=== PATIENT | female | born 1930 | race Caucasian/White ===

== ENCOUNTER → 2017-01-04 | Outpatient (CLI) | payer MEDICARE, BC ==
[2017-01-04 15:46] LABS: ABSOLUTE BASOPHILS # (AUTO) 0.1 10^3/uL (0.0-0.2); ABSOLUTE EOSINOPHILS # (AUTO) 0.2 10^3/uL (0.0-0.6); ABSOLUTE LYMPHOCYTES (AUTO) 1.2 10^3/uL (0.5-4.7); ABSOLUTE MONOCYTES (AUTO) 0.5 10^3/uL (0.1-1.4); BASOPHILS % (AUTO) 1.7 % (0-2); EOSINOPHILS % (AUTO) 4.6 % (0-6); HEMATOCRIT 30.5 % (36.0-47.0); HEMOGLOBIN 10.2 g/dL (12.0-15.5); HGB HCT DIFFERENCE 0.1; LYMPHOCYTES % (AUTO) 23.2 % (13-45); MEAN CORPUSCULAR HEMOGLOBIN 26.7 pg (27.0-33.4); MEAN CORPUSCULAR HGB CONC 33.3 g/dL (32.0-36.0); MEAN CORPUSCULAR VOLUME 80 fl (80-97); MONOCYTES % (AUTO) 10.5 % (3-13); RED BLOOD COUNT 3.81 10^6/uL (3.72-5.28); RED CELL DISTRIBUTION WIDTH 39.9 % (11.5-14.0)
[2017-01-04 16:04] LABS: ALANINE AMINOTRANSFERASE 18 U/L (9-52); ALBUMIN 4.2 g/dL (3.5-5.0); ALKALINE PHOSPHATASE 55 U/L (38-126); ANION GAP 11 (5-19); ASPARTATE AMINO TRANSFERASE 15 U/L (14-36); BILIRUBIN,DIRECT 0.3 mg/dL (0.0-0.4); BLOOD UREA NITROGEN 21 mg/dL (7-20); CALCIUM 8.8 mg/dL (8.4-10.2); CARBON DIOXIDE 30 mmol/L (22-30); CHLORIDE 96 mmol/L (98-107); CREATININE RESULT 0.72 mg/dL (0.52-1.25); GLUCOSE 91 mg/dL (75-110); MAGNESIUM 1.6 mg/dL (1.6-2.3); SODIUM 136.6 mmol/L (137-145); TOTAL PROTEIN 6.3 g/dL (6.3-8.2)
[2017-01-04 16:09] LABS: HYPOCHROMASIA SLIGHT; MICROCYTOSIS SLIGHT
[2017-01-04 16:10] LABS: ANISOCYTOSIS 4+; BURR CELLS SLIGHT; OVALOCYTES SLIGHT; POIKILOCYTOSIS 1+; SCHISTOCYTES SLIGHT
[2017-01-04 16:11] LABS: POLYCHROMASIA SLIGHT
[2017-01-04 16:12] LABS: TARGET CELLS SLIGHT
[2017-01-04 16:25] LABS: FREE T3 3.46 pg/mL (2.77-5.27)
== END ==
LOC: OD 15:00
PROVIDERS: ATTEND Internal Medicine
DX: I48.0 Paroxysmal atrial fibrillation (principal); E03.9 Hypothyroidism, unspecified; R53.82 Chronic fatigue, unspecified
CPT/HCPCS: 36415; 80053; 83735; 84436; 84439; 84481; 85025

== ENCOUNTER → 2017-01-09 | Outpatient (CLI) | payer MEDICARE, BC ==
--- NOTE | 2017-01-09 17:26 | XCELERA REPORT ---
[address] [address] Transthoracic Echocardiogram Report Name: MIGUEL CHEATHAM Age: 86 yrs Gender: Female : 1930 Patient Status: Outpatient Patient Location: Study Date: 01/09/2017 11:07 AM Height: 64 in Weight: 155 lb BSA: 1.8 m2 Procedure: A complete two-dimensional transthoracic echocardiogram was performed (2D, M-mode, spectral and color flow Doppler). The study was technically difficult with many images being suboptimal in quality. Reason For Study: AFIB Ordering Physician: NORRIS NEAL Performed By: Chasidy Mckenna Interpretation Summary The study was technically difficult with many images being suboptimal in quality. The left ventricular ejection fraction is normal. There is mild concentric left ventricular hypertrophy. Doppler measurements suggest pseudonormalized left ventricular relaxation, which is associated with grade II/IV or mild to moderate diastolic dysfunction The left ventricle is grossly normal size. Wall motion cannot be accurately commented on, but no definite regional wall motion abnormalities noted. The right ventricle is mildly dilated. The right ventricular systolic function is normal. The left atrium is mildly dilated. The right atrium is mildly dilated. There is a mild amount of mitral regurgitation There is no mitral valve stenosis. No aortic regurgitation is present. There is no aortic valve stenosis There is a mild to moderate amount of tricuspid regurgitation Right ventricular systolic pressure is estimated to be elevated at 50- 60mmHg. There is moderate pulmonary hypertension by echo Minimal pericardial effusion. MMode/2D Measurements \T\ Calculations RVDd: 2.9 cm LVIDd: 3.8 cmFS: 31.2 % Ao root diam: 3.7 cm IVSd: 1.2 cm LVIDs: 2.6 cmEDV(Teich): 63.4 ml LVPWd: 1.1 cmESV(Teich): 25.6 ml Ao root area: 10.9 cm2 EF(Teich): 59.7 % LA dimension: 3.0 cm LVOT diam: 2.4 cm LVOT area: 4.6 cm2 Doppler Measurements \T\ Calculations MV E max jack: MV P1/2t max jack: Ao V2 max: LV V1 max P.3 cm/sec 116.1 cm/sec 104.8 cm/sec 2.8 mmHg MV A max jack: MV P1/2t: 65.2 msec Ao max PG: LV V1 max: 101.0 cm/sec MVA(P1/2t): 3.4 cm2 4.4 mmHg 83.3 cm/sec MV E/A: 1.1 MV dec slope: ELLY(V,D): 3.7 cm2 521.5 cm/sec2 PA V2 max: TR max jack: 62.5 cm/sec 370.6 cm/sec PA max P.6 mmHgTR max P.9 mmHg Left Ventricle The left ventricle is grossly normal size. There is mild concentric left ventricular hypertrophy. The left ventricular ejection fraction is normal. Doppler measurements suggest pseudonormalized left ventricular relaxation, which is associated with grade II/IV or mild to moderate diastolic dysfunction. Wall motion cannot be accurately commented on, but no definite regional wall motion abnormalities noted. Right Ventricle The right ventricle is mildly dilated. There is normal right ventricular wall thickness. The right ventricular systolic function is normal. Atria The right atrium is mildly dilated. The left atrium is mildly dilated. Interarterial septum not well visualized and not well dopplered. Cannot comment on ASD/PFO presence. Mitral Valve There is mild mitral leaflet calcification. There is no mitral valve stenosis. There is a mild amount of mitral regurgitation. Aortic Valve The aortic valve is not well visualized secondary to technical limitations. There is no aortic valve stenosis. No aortic regurgitation is present. Tricuspid Valve The tricuspid valve is not well visualized, but is grossly normal. There is no tricuspid stenosis. There is a mild to moderate amount of tricuspid regurgitation. Right ventricular systolic pressure is estimated to be elevated at 50-60mmHg. There is moderate pulmonary hypertension by echo. Pulmonic Valve The pulmonic valve is not well visualized. Great Vessels The aortic root is not well visualized. The inferior vena cava appeared normal and decreased > 50% with respiration (RAP 5-10 mmHg). Effusions Minimal pericardial effusion. : NORRIS NEAL Shyamal
== END ==
LOC: SP 10:50
PROVIDERS: ATTEND Internal Medicine
DX: I48.0 Paroxysmal atrial fibrillation (principal)
CPT/HCPCS: 93306

== ENCOUNTER → 2017-10-18 | Outpatient (CLI) | payer MEDICARE, BC ==
[2017-10-18 16:36] LABS: HEMATOCRIT 27.7 % (36.0-47.0); HEMOGLOBIN 8.9 g/dL (12.0-15.5); MEAN CORPUSCULAR HEMOGLOBIN 21.7 pg (27.0-33.4); MEAN CORPUSCULAR HGB CONC 32.1 g/dL (32.0-36.0); MEAN CORPUSCULAR VOLUME 68 fl (80-97); PLATELET COUNT 277 10^3/uL (150-450); RED BLOOD COUNT 4.11 10^6/uL (3.72-5.28); RED CELL DISTRIBUTION WIDTH 31.6 % (11.5-14.0); WHITE BLOOD COUNT 5.2 10^3/uL (4.0-10.5)
[2017-10-18 16:47] LABS: ALANINE AMINOTRANSFERASE 27 U/L (9-52); ALKALINE PHOSPHATASE 52 U/L (38-126); ANION GAP 12 (5-19); ASPARTATE AMINO TRANSFERASE 21 U/L (14-36); BILIRUBIN,DIRECT 0.2 mg/dL (0.0-0.4); BILIRUBIN,TOTAL 0.7 mg/dL (0.2-1.3); BLOOD UREA NITROGEN 40 mg/dL (7-20); CALCIUM 8.8 mg/dL (8.4-10.2); CARBON DIOXIDE 30 mmol/L (22-30); CHLORIDE 97 mmol/L (98-107); GLUCOSE 92 mg/dL (75-110); MAGNESIUM 1.8 mg/dL (1.6-2.3); POTASSIUM 4.3 mmol/L (3.6-5.0); SODIUM 138.7 mmol/L (137-145)
[2017-10-18 16:57] LABS: ABSOLUTE LYMPHOCYTES# (MANUAL) 0.8 10^3/uL (0.5-4.7); ABSOLUTE MONOCYTES # (MANUAL) 0.5 10^3/uL (0.1-1.4); ABSOLUTE NEUTROPHILS# (MANUAL) 3.7 10^3/uL (1.7-8.2); BAND NEUTROPHILS % (MANUAL) 3 % (3-5); BASOPHILS % (MANUAL) 2 % (0-2); EOSINOPHILS % (MANUAL) 2 % (0-6); LYMPHOCYTES % (MANUAL) 15 % (13-45); MONOCYTES % (MANUAL) 9 % (3-13); SEGMENTED NEUTROPHILS % (MAN) 69 % (42-78); TOTAL CELLS COUNTED 100
[2017-10-18 16:58] LABS: PLATELET COMMENT ADEQUATE; PLATELET LARGE PRESENT
[2017-10-18 17:01] LABS: ANISOCYTOSIS 3+
[2017-10-18 17:02] LABS: OVALOCYTES 1+; TEAR DROP CELLS SLIGHT; TOXIC GRANULATION SLIGHT
[2017-10-18 17:03] LABS: POLYCHROMASIA SLIGHT
== END ==
LOC: OD 15:39
PROVIDERS: ATTEND Internal Medicine
DX: R53.83 Other fatigue (principal); E78.5 Hyperlipidemia, unspecified; I48.0 Paroxysmal atrial fibrillation; E16.2 Hypoglycemia, unspecified
CPT/HCPCS: 36415; 80053; 83735; 84443; 85025

== ENCOUNTER 2017-10-23 14:13 | Inpatient (IN) | payer MEDICARE, BC ==
[2017-10-23 15:37] LABS: VENOUS BLOOD HCO3 27.5 mmol/L (20-32); VENOUS BLOOD PCO2 53.3 mmHg (35-63); VENOUS BLOOD PH 7.33 (7.30-7.42)
[2017-10-23 15:39] LABS: ABSOLUTE BASOPHILS # (AUTO) 0.1 10^3/uL (0.0-0.2); ABSOLUTE EOSINOPHILS # (AUTO) 0.1 10^3/uL (0.0-0.6); ABSOLUTE LYMPHOCYTES (AUTO) 0.6 10^3/uL (0.5-4.7); ABSOLUTE MONOCYTES (AUTO) 0.6 10^3/uL (0.1-1.4); ABSOLUTE NEUT (AUTO) 4.4 10^3/uL (1.7-8.2); BASOPHILS % (AUTO) 1.2 % (0-2); HEMATOCRIT 28.5 % (36.0-47.0); HEMOGLOBIN 8.9 g/dL (12.0-15.5); LYMPHOCYTES % (AUTO) 10.8 % (13-45); MEAN CORPUSCULAR HEMOGLOBIN 21.3 pg (27.0-33.4); MEAN CORPUSCULAR HGB CONC 31.1 g/dL (32.0-36.0); MEAN CORPUSCULAR VOLUME 69 fl (80-97); MONOCYTES % (AUTO) 10.2 % (3-13); PLATELET COUNT 253 10^3/uL (150-450); RED BLOOD COUNT 4.16 10^6/uL (3.72-5.28); RED CELL DISTRIBUTION WIDTH 32.5 % (11.5-14.0); SEGMENTED NEUTROPHILS % (AUTO) 75.8 % (42-78); TOTAL CELLS COUNTED % (AUTO) 100 %; WHITE BLOOD COUNT 5.8 10^3/uL (4.0-10.5)
[2017-10-23 15:41] LABS: INTERNATIONAL RATION (INR) 1.88; PROTHROMBIN TIME 22.7 SEC (11.4-15.4)
--- NOTE | 2017-10-23 15:53 | RADIOLOGY REPORT (SQ) ---
EXAM DESCRIPTION: CHEST SINGLE VIEW COMPLETED DATE/TIME: 10/23/2017 3:39 pm REASON FOR STUDY: bed 15 sepsis protocol COMPARISON: 06/23/2010 EXAM PARAMETERS: NUMBER OF VIEWS: One view. TECHNIQUE: Single frontal radiographic view of the chest acquired. RADIATION DOSE: NA LIMITATIONS: None. FINDINGS: LUNGS AND PLEURA: No active infiltrates. Retrocardiac density most likely represents hiat al hernia. Small granuloma lateral aspect the right lung base. MEDIASTINUM AND HILAR STRUCTURES: No masses. Contour normal. HEART AND VASCULAR STRUCTURES: Heart normal in size. Normal vasculature. BONES: No acute findings. HARDWARE: Spinal stimulator OTHER: No other significant finding. IMPRESSION: NO ACUTE RADIOGRAPHIC FINDING IN THE CHEST. TECHNICAL DOCUMENTATION: JOB ID: [id number] [employer]- All Rights Reserved
--- NOTE | 2017-10-23 15:57 | ER Document Report ---
ED Respiratory Problem - General Chief Complaint: Breathing Difficulty Stated Complaint: PULSE OX ISSUES SENT BY DR GARCIA Time Seen by Provider: 10/23/17 15:15 Notes: Patient was referred here from her primary care physician (Norris Neal MD) office for low oxygen level. She is here with her daughter a former business continuity planner for this [facility]. Daughter says that the patient has had low oxygen levels for a couple of days. On Sunday, she had a saturation of 80% and her blood pressure was only 88/60. She is on no home oxygen. She had oxygen saturations in the 80s yesterday, as well. They went to their primary care provider's office today in hopes of getting oxygen for her at home, but she was noted to have an O2 saturation of 79% at Norris Neal MD's office. She was put on oxygen at 2 L and referred here. Patient denies any chest pain. Has not been having any cough or chest congestion recently. No vomiting or diarrhea. No fevers. Patient has a history of atrial fibrillation diagnosed about 6 months ago. She is on Eliquis. Patient has chronic pain of various parts of her body. However, her general medical condition is so poor that she cannot have palliative surgery such as knee replacements, etc. TRAVEL OUTSIDE OF THE [place] IN LAST 30 DAYS: No - Related Data Allergies/Adverse Reactions: No Known Allergies Allergy (Verified 10/23/17 14:14) Past Medical History - Social History Smoking Status: Unknown if Ever Smoked Cigarette use (# per day): No Family History: Reviewed & Not Pertinent Pulmonary Medical History: Denies: Hx Asthma, Hx COPD Musculoskeltal Medical History: Reports Hx Arthritis - Immunizations Hx Diphtheria, Pertussis, Tetanus Vaccination: No Review of Systems - Review of Systems Notes: REVIEW OF SYSTEMS: CONSTITUTIONAL : Denies fever. EENT: Denies eye, ear, nose or mouth or throat pain or other symptoms. CARDIOVASCULAR: Denies chest pain. RESPIRATORY: Denies cough, chest congestion, but does have chronic shortness of breath and difficulty breathing. GASTROINTESTINAL: Denies abdominal pain or nausea, vomiting, or diarrhea. GENITOURINARY: Denies difficulty or painful urinating, urinary frequency, blood in urine. MUSCULOSKELETAL: Denies back or neck pain. Denies joint pain or swelling. SKIN: Denies rash or skin lesions. Swelling of both lower extremities with chronic oozing of lymphatic fluid from both sides. No evidence of erythema or cellulitis. Negative Homans bilaterally. NEUROLOGICAL: Denies LOC or altered mental status. Denies headache. Denies sensory loss or motor deficits. ALL OTHER SYSTEMS REVIEWED AND NEGATIVE. Physical Exam - Vital signs Vitals: Temp Pulse Resp BP Pulse Ox 98.5 F 102 H 20 99/48 L 72 L 10/23/17 14:20 10/23/17 14:20 10/23/17 14:20 10/23/17 14:20 10/23/17 14:20 Interpretation: Hypotensive - Mild - Notes Notes: PHYSICAL EXAMINATION: GENERAL: Well-appearing, in no acute distress. On 4 L oxygen. HEAD: Atraumatic, normocephalic. EYES: Pupils equal round and reactive to light, extraocular movements intact. ENT: oropharynx clear without exudates. Moist mucous membranes. NECK: Normal range of motion, supple. LUNGS: Breath sounds with fine bibasilar rales, but equal bilaterally. HEART: Irregular rate and rhythm without murmurs. ABDOMEN: Soft, nontender. No guarding or rebound. No masses. BACK: No tenderness throughout entire back. EXTREMITIES: Normal range of motion without pain. Chronic lymphedema of both lower extremities with oozing of clear lymphatic fluid. No erythema or evidence of cellulitis or infection. Negative Homans bilaterally. NEUROLOGICAL: Normal speech, gait not tested. Normal sensory, motor, and reflex exams. Awake, alert, and oriented x3. PSYCH: Normal mood, normal affect. SKIN: Warm, dry, no rashes. Course - Re-evaluation Re-evalutation: 10/23/17 19:24 Attempted to take patient off of oxygen, but her O2 sat almost immediately drops to the upper 80%. We obtained a CTA which did not show any evidence of pulmonary emboli. Basically, we have unexplained hypoxia. I spoke with the patient's primary care provider Norris Neal MD. I also spoke to the hospitalist who will admit the patient for further workup and care. - Vital Signs Vital signs: Temp Pulse Resp BP Pulse Ox 98.5 F 102 H 20 99/48 L 72 L 10/23/17 14:20 10/23/17 14:20 10/23/17 14:20 10/23/17 14:20 10/23/17 14:20 - Laboratory Result Diagrams: 10/23/17 15:07 10/23/17 15:07 Laboratory results interpreted by me: 10/23/17 10/23/17 10/23/17 15:07 15:07 15:07 Hgb 8.9 L Hct 28.5 L MCV 69 L MCH 21.3 L MCHC 31.1 L RDW 32.5 H Lymphocytes % 10.8 L PT 22.7 H Chloride 97 L BUN 44 H Creatinine 1.29 H Est GFR ( Amer) 47 L Est GFR (Non-Af Amer) 39 L Direct Bilirubin 0.5 H AST 53 H ALT 64 H NT-Pro-B Natriuret Pep 10/23/17 15:07 Hgb Hct MCV MCH MCHC RDW Lymphocytes % PT Chloride BUN Creatinine Est GFR ( Amer) Est GFR (Non-Af Amer) Direct Bilirubin AST ALT NT-Pro-B Natriuret Pep 60914 H - Diagnostic Test Radiology results interpreted by me: 10/23/17 19:26 Chest x-ray shows no acute abnormality. No evidence of heart failure. No infiltrates. - EKG Interpretation by Me Rate: Normal Rhythm: A.Fib, A.Flutter [place]/QRS: RBBB Discharge - Discharge Clinical Impression: Hypoxia, Atrial fibrillation, Dyspnea Condition: Fair Disposition: ADMITTED INPATIENT Admitting Provider: Hospitalist Unit Admitted: Telemetry Referrals: NORRIS NEAL MD [Primary Care Provider] - Follow up as needed
[2017-10-23 15:59] LABS: ALANINE AMINOTRANSFERASE 64 U/L (9-52); ALBUMIN 4.2 g/dL (3.5-5.0); ALKALINE PHOSPHATASE 60 U/L (38-126); ANION GAP 11 (5-19); ASPARTATE AMINO TRANSFERASE 53 U/L (14-36); BILIRUBIN,DIRECT 0.5 mg/dL (0.0-0.4); BILIRUBIN,TOTAL 0.9 mg/dL (0.2-1.3); BLOOD UREA NITROGEN 44 mg/dL (7-20); CALCIUM 9.2 mg/dL (8.4-10.2); CARBON DIOXIDE 29 mmol/L (22-30); CHLORIDE 97 mmol/L (98-107); GLUCOSE 97 mg/dL (75-110); POTASSIUM 4.2 mmol/L (3.6-5.0); SODIUM 137.4 mmol/L (137-145); TOTAL PROTEIN 6.5 g/dL (6.3-8.2)
[2017-10-23 16:06] LABS: TOXIC GRANULATION SLIGHT
[2017-10-23 16:07] LABS: ANISOCYTOSIS 3+; HYPOCHROMASIA 1+; OVALOCYTES SLIGHT; POIKILOCYTOSIS 2+
[2017-10-23 16:09] LABS: PLATELET COMMENT ADEQUATE; SCHISTOCYTES SLIGHT
[2017-10-23 16:33] LABS: APPEARANCE,URINE CLEAR; BILIRUBIN,URINE NEGATIVE (NEGATIVE); COLOR,URINE YELLOW; GLUCOSE, URINE NEGATIVE (NEGATIVE); KETONES,URINE NEGATIVE (NEGATIVE); LEUKOCYTE ESTERASE,URINE NEGATIVE (NEGATIVE); NITRITE,URINE NEGATIVE (NEGATIVE); PROTEIN,URINE NEGATIVE (NEGATIVE); URINE SPECIFIC GRAVITY 1.008; UROBILINOGEN,URINE NEGATIVE mg/dL (<2.0)
[2017-10-23 17:28] LABS: A TYPE INFLUENZA AG NEGATIVE (NEGATIVE); B INFLUENZA AG NEGATIVE (NEGATIVE)
[2017-10-23] MEDS ORDERED: ONDANSETRON HCL INJ/PF 4 MG/2 ML SDV IV ONE (18:31)
--- NOTE | 2017-10-23 18:35 | RADIOLOGY REPORT (SQ) ---
EXAM DESCRIPTION: CTA CHEST COMPLETED DATE/TIME: 10/23/2017 6:22 pm REASON FOR STUDY: Hypoxia and shortness of breath. COMPARISON: None. TECHNIQUE: CT scan of the chest performed using helical scanning technique with dynamic intravenous contrast injection. Images reviewed with lung, soft tissue and bone windows. Reconstructed coronal and sagittal MPR images reviewed. Additional 3 dimensional post-processing performed to develop Maximal Intensity Projection images (NV P). All images stored on PACS. All CT scanners at this facility use dose modulation, iterative reconstruction, and/or weight based d osing when appropriate to reduce radiation dose to as low as reasonably achievable (ALARA). [facility]: Dose Right [facility]: CareDose [facility]: Dose Right [facility]: Teradose 4D [facility]: Xcalar CONTRAST TYPE AND DOSE: contrast/concentration: Isovue 370.00 mg/ml; Total Contrast Delivered: 69.0 ml; Total Saline Delivered: 64.0 ml 69 Isovue 370- low osmolar. Contrast bolus optimized for the pulmonary arteries. Not diagnostic for the aorta. RENAL FUNCTION: Creatinine 1.29 RADIATION DOSE: CT Rad equipment meets quality standard of care and radiation dose reduction techniq ues were employed. CTDIvol: 14.5 - 26.4 mGy. DLP: 534 mGy-cm. . LIMITATIONS: None. FINDINGS: LUNGS AND PLEURA: Atelectasis or atelectatic infiltrate posteriorly at the right base. Sm all right pleural effusion. AORTA AND GREAT VESSELS: No aneurysm. Contrast bolus not optimized for the aorta. HEART: No pericardial effusion. No significant coronary artery calcifications. PULMONARY ARTERIES: No emboli visualized in the main pulmonary arteries or the segmental branches. HILAR AND MEDIASTINAL STRUCTURES: No identified masses or abnormal nodes. Large hiatal hernia HARDWARE: None in the chest. UPPER ABDOMEN: No significant findings. Limited exam. THYROID AND OTHER SOFT TISSUES: No masses. No adenopathy. BONES: No acute or significant finding. 3D MIPS: Confirm above findings. OTHER: No other significant finding. IMPRESSION: No pulmonary emboli. Atelectasis or atelectatic infiltrate right lower lung zone. Smal l right pleural effusion. Large hiatal hernia. COMMENT: Quality ID # [id number]: Final reports with documentation of one or more dose reduction techniques (e.g., Automated exposure control, adjustment of the mA and/or kV according to patient size, use of iterative reconstruction technique) TECHNICAL DOCUMENTATION: JOB ID: [id number] 2 [employer]- All Rights Reserved
[2017-10-23] MEDS ORDERED: ENOXAPARIN SODIUM INJ 30 MG/0.3 ML DISP.SYRIN SUBCUT ONE (20:15)
[2017-10-23] MEDS: LEVALBUTEROL HCL NEB 1.25 MG/3 ML AMPUL NEB SCH (20:23)
[2017-10-23] MEDS ORDERED: FUROSEMIDE 20 MG TABLET PO ONE (21:45)
[2017-10-23] MEDS ORDERED: CEFTRIAXONE SODIUM 1,000 MG in NORMAL SALINE 50 ML IV SCH (22:00)
[2017-10-23] MEDS: CEFTRIAXONE SODIUM 1,000 MG in NORMAL SALINE 50 ML IV SCH (22:15)
--- NOTE | 2017-10-23 22:47 | EKG REPORT ---
SEVERITY:- ABNORMAL ECG - ATRIAL FIBRILLATION INCOMPLETE RIGHT BUNDLE BRANCH BLOCK NONSPECIFIC T ABNORMALITIES, LATERAL LEADS : Confirmed by: Erica Cadena 23-Oct-2017 22:46:11
[2017-10-24] MEDS ORDERED: OXYCODONE-ACETAMINOPHEN 5-325 MG TABLET PO PRN (00:16)
--- NOTE | 2017-10-24 00:31 | PDOC H&P ---
History of Present Illness Admission Date/PCP: 10/23/17 19:52 NORRIS NEAL, Patient complains of: Low oxygen level History of Present Illness: MIGUEL CHEATHAM is a 87 year old female with a history of scoliosis now wheelchair -bound, hypothyroidism, osteoporosis porosis, hyperlipidemia, GERD, timid to this, chronic atrial fibrillation on Eliquis who has been hockey puck sick over the last couple of days. Patient was hypoxic at home with oxygen saturations to 80s. Patient was evaluated in Dr. Neal's clinic on 10/23/2017 and was noted to be hypoxic there also. Patient was able to bring her saturations up to 90 with taking deep breaths. There is some concern that her nail vietnamese may have been interfering with the oxygenation. Patient was sent to the ED for further evaluation. Patient denies being short of breath. Patient would not give any further history and want her daughter to be present while history was obtained. Daughter's phone number is [phone] and her name is Milana. History was taken from documents sent with patient from the clinic visit. In the ED patient did not appear to be in any distress. She was satting 87-88% . On L patient was able to sat 99%. CTA of the chest was negative for PE but did demonstrate right lower lobe atelectatic infiltrate. Patient BNP was also elevated at 15,000. Hospitalist was called to admit patient for acute hypoxic respiratory failure. Past Medical History Cardiac Medical History: Reports: Atrial Fibrillation, Congestive Heart Failure - Diastolic grade 2 Pulmonary Medical History: Reports: Respiratory Failure Denies: Asthma, Chronic Obstructive Pulmonary Disease (COPD) Endocrine Medical History: Reports: Hypothyroidism GI History Note: GERD Musculoskeltal Medical History: Reports: Arthritis Musculoskeletal History Note: Scoliosis, osteoporosis Hematology: Denies: Anemia Past Surgical History Past Surgical History: Reports: Orthopedic Surgery, Tonsillectomy, Other - Spinal cord stimulator insertion, ladder suspension cataract surgery, Social History Smoking Status: Unknown if Ever Smoked Family History Family History: CAD, Malignancy Parental Family History Reviewed: No Children Family History Reviewed: No Sibling(s) Family History Reviewed.: No Medication/Allergy Allergies/Adverse Reactions: No Known Allergies Allergy (Verified 10/23/17 14:14) Review of Systems Constitutional: ABSENT: chills, fever(s), headache(s), weight gain, weight loss Eyes: ABSENT: visual disturbances Ears: ABSENT: hearing changes Cardiovascular: PRESENT: edema. ABSENT: chest pain, dyspnea on exertion, orthropnea, palpitations Respiratory: ABSENT: cough, hemoptysis Gastrointestinal: ABSENT: abdominal pain, constipation, diarrhea, hematemesis, hematochezia, nausea, vomiting Genitourinary: ABSENT: dysuria, hematuria Musculoskeletal: ABSENT: joint swelling Integumentary: ABSENT: rash, wounds Neurological: ABSENT: abnormal gait, abnormal speech, confusion, dizziness, focal weakness, syncope Psychiatric: ABSENT: anxiety, depression, homidical ideation, suicidal ideation Endocrine: ABSENT: cold intolerance, heat intolerance, polydipsia, polyuria Hematologic/Lymphatic: ABSENT: easy bleeding, easy bruising Physical Exam Vital Signs: Temp Pulse Resp BP Pulse Ox 98.5 F 96 14 106/67 100 10/23/17 14:20 10/23/17 20:29 10/23/17 20:51 10/23/17 20:51 10/23/17 20:51 General appearance: PRESENT: no acute distress, well-developed, well-nourished Head exam: PRESENT: atraumatic, normocephalic Eye exam: PRESENT: conjunctiva pink, EOMI, PERRLA. ABSENT: scleral icterus Ear exam: PRESENT: normal external ear exam Mouth exam: PRESENT: moist, tongue midline Neck exam: ABSENT: carotid bruit, JVD, lymphadenopathy, thyromegaly Respiratory exam: PRESENT: clear to auscultation rosana. ABSENT: rales, rhonchi, wheezes Cardiovascular exam: PRESENT: RRR. ABSENT: diastolic murmur, rubs, systolic murmur Pulses: PRESENT: normal dorsalis pedis pul Vascular exam: PRESENT: normal capillary refill GI/Abdominal exam: PRESENT: normal bowel sounds, soft. ABSENT: distended, guarding, mass, organolmegaly, rebound, tenderness Rectal exam: PRESENT: deferred Extremities exam: PRESENT: full ROM, +2 edema. ABSENT: calf tenderness, clubbing, pedal edema Musculoskeletal exam: PRESENT: other - Kyphoscoliosis Neurological exam: PRESENT: alert, awake, oriented to person, oriented to place , oriented to time, oriented to situation, other - hard of hearing. ABSENT: motor sensory deficit Psychiatric exam: PRESENT: appropriate affect, normal mood. ABSENT: homicidal ideation, suicidal ideation Skin exam: PRESENT: dry, intact, warm, other - Right leg wound with dressing in place. ABSENT: cyanosis, rash Results Laboratory Results: 10/23/17 10/23/17 10/23/17 15:07 15:07 15:07 WBC 5.8 RBC 4.16 Hgb 8.9 L Hct 28.5 L MCV 69 L MCH 21.3 L MCHC 31.1 L RDW 32.5 H Plt Count 253 Seg Neutrophils % 75.8 Lymphocytes % 10.8 L Monocytes % 10.2 Eosinophils % 2.0 Basophils % 1.2 Absolute Neutrophils 4.4 Absolute Lymphocytes 0.6 Absolute Monocytes 0.6 Absolute Eosinophils 0.1 Absolute Basophils 0.1 Toxic Granulation SLIGHT Platelet Comment ADEQUATE Hypochromasia 1+ Poikilocytosis 2+ Anisocytosis 3+ Microcytosis 2+ Ovalocytes SLIGHT Schistocytes SLIGHT PT 22.7 H INR 1.88 VBG pH VBG pCO2 VBG HCO3 VBG Base Excess Sodium 137.4 Potassium 4.2 Chloride 97 L Carbon Dioxide 29 Anion Gap 11 BUN 44 H Creatinine 1.29 H Est GFR ( Amer) 47 L Est GFR (Non-Af Amer) 39 L Glucose 97 Lactic Acid Calcium 9.2 Total Bilirubin 0.9 Direct Bilirubin 0.5 H AST 53 H ALT 64 H Alkaline Phosphatase 60 NT-Pro-B Natriuret Pep Total Protein 6.5 Albumin 4.2 Urine Color Urine Appearance Urine pH Ur Specific [place] Urine Protein Urine Glucose (UA) Urine Ketones Urine Blood Urine Nitrite Urine Bilirubin Urine Urobilinogen Ur Leukocyte Esterase Urine WBC (Auto) Urine RBC (Auto) U Hyaline Cast (Auto) Urine Bacteria (Auto) Squamous Epi Cells Auto Urine Mucus (Auto) Urine Ascorbic Acid Influenza A (Rapid) Influenza B (Rapid) 10/23/17 10/23/17 10/23/17 15:07 15:07 15:07 WBC RBC Hgb Hct MCV MCH MCHC RDW Plt Count Seg Neutrophils % Lymphocytes % Monocytes % Eosinophils % Basophils % Absolute Neutrophils Absolute Lymphocytes Absolute Monocytes Absolute Eosinophils Absolute Basophils Toxic Granulation Platelet Comment Hypochromasia Poikilocytosis Anisocytosis Microcytosis Ovalocytes Schistocytes PT INR VBG pH 7.33 VBG pCO2 53.3 VBG HCO3 27.5 VBG Base Excess 1.0 Sodium Potassium Chloride Carbon Dioxide Anion Gap BUN Creatinine Est GFR ( Amer) Est GFR (Non-Af Amer) Glucose Lactic Acid Calcium Total Bilirubin Direct Bilirubin AST ALT Alkaline Phosphatase NT-Pro-B Natriuret Pep 21442 H Total Protein Albumin Urine Color YELLOW Urine Appearance CLEAR Urine pH 5.0 Ur Specific [place] 1.008 Urine Protein NEGATIVE Urine Glucose (UA) NEGATIVE Urine Ketones NEGATIVE Urine Blood NEGATIVE Urine Nitrite NEGATIVE Urine Bilirubin NEGATIVE Urine Urobilinogen NEGATIVE Ur Leukocyte Esterase NEGATIVE Urine WBC (Auto) 1 Urine RBC (Auto) 0 U Hyaline Cast (Auto) 5 Urine Bacteria (Auto) 1+ Squamous Epi Cells Auto <1 Urine Mucus (Auto) RARE Urine Ascorbic Acid NEGATIVE Influenza A (Rapid) Influenza B (Rapid) 10/23/17 10/23/17 15:56 15:56 WBC RBC Hgb Hct MCV MCH MCHC RDW Plt Count Seg Neutrophils % Lymphocytes % Monocytes % Eosinophils % Basophils % Absolute Neutrophils Absolute Lymphocytes Absolute Monocytes Absolute Eosinophils Absolute Basophils Toxic Granulation Platelet Comment Hypochromasia Poikilocytosis Anisocytosis Microcytosis Ovalocytes Schistocytes PT INR VBG pH VBG pCO2 VBG HCO3 VBG Base Excess Sodium Potassium Chloride Carbon Dioxide Anion Gap BUN Creatinine Est GFR ( Amer) Est GFR (Non-Af Amer) Glucose Lactic Acid 0.9 Calcium Total Bilirubin Direct Bilirubin AST ALT Alkaline Phosphatase NT-Pro-B Natriuret Pep Total Protein Albumin Urine Color Urine Appearance Urine pH Ur Specific [place] Urine Protein Urine Glucose (UA) Urine Ketones Urine Blood Urine Nitrite Urine Bilirubin Urine Urobilinogen Ur Leukocyte Esterase Urine WBC (Auto) Urine RBC (Auto) U Hyaline Cast (Auto) Urine Bacteria (Auto) Squamous Epi Cells Auto Urine Mucus (Auto) Urine Ascorbic Acid Influenza A (Rapid) NEGATIVE Influenza B (Rapid) NEGATIVE Impressions: Chest X-Ray 10/23/17 14:28 IMPRESSION: NO ACUTE RADIOGRAPHIC FINDING IN THE CHEST. Chest/Abdomen CTA 10/23/17 16:38 IMPRESSION: No pulmonary emboli. Atelectasis or atelectatic infiltrate right lower lung zone. Small right pleural effusion. Large hiatal hernia. Assessment & Plan - Diagnosis (1) Acute respiratory failure with hypoxia Is this a current diagnosis for this admission?: Yes Plan: Acute hypoxic respiratory failure secondary to possible right lower lobe pneumonia and/or volume overload as patient BNP is 16,300. Patient currently on supplemental oxygen. Will wean as tolerated. Patient will need home O2 evaluation prior to discharge home. (2) Pneumonia Qualifiers: Laterality: right Lung location: lower lobe of lung Is this a current diagnosis for this admission?: Yes Plan: With the right-sided infiltrate seen on CT scan of the chest. Patient is not febrile nor does she has leukocytosis however he has been persistently hypoxic. Patient started on ceftriaxone and azithromycin for community-acquired pneumonia. Blood cultures have been drawn. (3) Acute renal failure Is this a current diagnosis for this admission?: Yes Plan: Patient with acute renal failure. Patient creatinine was 1.16 on 10/18/2017. Patient creatinine is now 1.29 on 10/23/2017. This could be secondary to acute congestive heart failure. Will gently diurese and follow up renal function. (4) Diastolic heart failure Qualifiers: Heart failure chronicity: acute on chronic Qualified Code(s): I50.33 - Acute on chronic diastolic (congestive) heart failure Is this a current diagnosis for this admission?: Yes Plan: She with acute on chronic diastolic heart failure. Patient has grade 2 diastolic heart failure. Patient with significant pedal edema. Patient BNP is 16,300. Patient normally takes Lasix 40mg daily at home however unsure how effective this has been. Will start patient on IV Lasix 20 mg every 8 hours and metolazone. Patient started on a lower dose of Lasix due to her low normal blood pressures. Will place patient on fluid restriction and monitor ins and outs. Patient is already on beta-antonia. Patient is not on lisinopril due to acute renal failure and uncertainty if patient blood pressure will tolerate. Order cardiac echo last echo was completed on 01/09/2017 which showed grade 2 diastolic dysfunction with systolic function. (5) Atrial fibrillation Qualifiers: Atrial fibrillation type: chronic Qualified Code(s): I48.2 - Chronic atrial fibrillation Is this a current diagnosis for this admission?: Yes Plan: Patient on metoprolol 12.5 mg p.o. twice daily and Eliquis 5 mg twice a day. (6) Transaminitis Is this a current diagnosis for this admission?: Yes Plan: Transaminitis most likely due to vascular congestion from exacerbation of CHF. With diuresis and follow-up LFTs. (7) Debility Is this a current diagnosis for this admission?: Yes Plan: She is wheelchair-bound at baseline. This is most likely due to her kyphoscoliosis (8) Hypotension Is this a current diagnosis for this admission?: Yes Plan: With low normal blood pressures. If patient is symptomatic or not as she is not ambulatory. Will start patient on Midodrine 5 mg 3 times daily while she is being diuresed as she is at risk for further hypotension. (9) Anemia Is this a current diagnosis for this admission?: Yes Plan: With microcytic anemia. Patient hemoglobin is 8.9 however stable. Patient MCV 69. Order iron studies and start patient on iron replacement. - Time Time Spent: 30 to 50 Minutes Anticipated discharge: Home with Homehealth - Inpatient Certification Medical Necessity: Need for IV Antibiotics
[2017-10-24] MEDS ORDERED: LEVOTHYROXINE SODIUM 0.05 MG TABLET PO ONE (00:45)
[2017-10-24] MEDS: LEVALBUTEROL HCL NEB 1.25 MG/3 ML AMPUL NEB SCH ×4 (01:57→20:03)
[2017-10-24 05:29] LABS: ALANINE AMINOTRANSFERASE 50 U/L (9-52); ALBUMIN 3.3 g/dL (3.5-5.0); ALKALINE PHOSPHATASE 50 U/L (38-126); ANION GAP 8 (5-19); ASPARTATE AMINO TRANSFERASE 35 U/L (14-36); BILIRUBIN,DIRECT 0.2 mg/dL (0.0-0.4); BILIRUBIN,TOTAL 0.7 mg/dL (0.2-1.3); BLOOD UREA NITROGEN 36 mg/dL (7-20); CALCIUM 8.5 mg/dL (8.4-10.2); CARBON DIOXIDE 30 mmol/L (22-30); CHLORIDE 98 mmol/L (98-107); GLUCOSE 87 mg/dL (75-110); IRON(TIBC) 37.1 ug/dL (37-170); POTASSIUM 3.7 mmol/L (3.6-5.0); SODIUM 136.4 mmol/L (137-145); TOTAL PROTEIN 5.1 g/dL (6.3-8.2)
[2017-10-24 06:02] LABS: ABSOLUTE BASOPHILS # (AUTO) 0.1 10^3/uL (0.0-0.2); ABSOLUTE EOSINOPHILS # (AUTO) 0.1 10^3/uL (0.0-0.6); ABSOLUTE LYMPHOCYTES (AUTO) 0.6 10^3/uL (0.5-4.7); ABSOLUTE MONOCYTES (AUTO) 0.6 10^3/uL (0.1-1.4); ABSOLUTE NEUT (AUTO) 4.1 10^3/uL (1.7-8.2); ABSOLUTE RETICS # 0.047 10^6/uL (0.028-0.122); BASOPHILS % (AUTO) 2.5 % (0-2); EOSINOPHILS % (AUTO) 2.3 % (0-6); HEMATOCRIT 23.4 % (36.0-47.0); MEAN CORPUSCULAR HEMOGLOBIN 21.6 pg (27.0-33.4); MEAN CORPUSCULAR HGB CONC 32.1 g/dL (32.0-36.0); MEAN CORPUSCULAR VOLUME 67 fl (80-97); MONOCYTES % (AUTO) 11.1 % (3-13); PLATELET COUNT 182 10^3/uL (150-450); RED BLOOD COUNT 3.47 10^6/uL (3.72-5.28); RED CELL DISTRIBUTION WIDTH 32.1 % (11.5-14.0); RETICULOCYTE COUNT (AUTO) 1.36 % (0.66-2.85); SEGMENTED NEUTROPHILS % (AUTO) 73.1 % (42-78); TOTAL CELLS COUNTED % (AUTO) 100 %; WHITE BLOOD COUNT 5.6 10^3/uL (4.0-10.5)
[2017-10-24 06:04] LABS: FERRITIN 9.24 ng/mL (11.1-264.0)
[2017-10-24 06:25] LABS: HEMOGLOBIN 7.5 g/dL (12.0-15.5)
[2017-10-24 06:33] LABS: HYPOCHROMASIA 3+
[2017-10-24 06:34] LABS: ANISOCYTOSIS 3+; BURR CELLS 1+; PLATELET COMMENT ADEQUATE; POIKILOCYTOSIS 2+; SCHISTOCYTES 1+
[2017-10-24 06:35] LABS: PLATELET LARGE PRESENT
[2017-10-24 06:36] LABS: FOLATE > 20.00 ng/mL (>2.76)
[2017-10-24 07:22] LABS: HEMATOCRIT 25.1 % (36.0-47.0); MEAN CORPUSCULAR HEMOGLOBIN 21.4 pg (27.0-33.4); MEAN CORPUSCULAR HGB CONC 31.2 g/dL (32.0-36.0); MEAN CORPUSCULAR VOLUME 69 fl (80-97); RED BLOOD COUNT 3.65 10^6/uL (3.72-5.28); RED CELL DISTRIBUTION WIDTH 31.7 % (11.5-14.0); WHITE BLOOD COUNT 5.8 10^3/uL (4.0-10.5)
[2017-10-24 08:01] LABS: HEMOGLOBIN 7.8 g/dL (12.0-15.5); PLATELET COUNT 192 10^3/uL (150-450)
[2017-10-24] MEDS ORDERED: BUMETANIDE 1 MG TABLET PO SCH (10:00)
[2017-10-24] MEDS ORDERED: ENOXAPARIN SODIUM INJ 30 MG/0.3 ML DISP.SYRIN SUBCUT SCH (10:00)
[2017-10-24] MEDS ORDERED: APIXABAN 2.5 MG TABLET PO SCH ×2 (10:00)
[2017-10-24] MEDS ORDERED: METOLAZONE 2.5 MG TABLET PO SCH (10:00)
[2017-10-24] MEDS ORDERED: CEFTRIAXONE 1 GM/D5W RTU 50 ML IV SCH (10:00)
[2017-10-24] MEDS ORDERED: FUROSEMIDE 20 MG TABLET PO SCH (10:00)
[2017-10-24] MEDS ORDERED: METOPROLOL TARTRATE 25 MG TABLET PO SCH ×2 (10:00→22:00)
[2017-10-24] MEDS ORDERED: ENOXAPARIN SODIUM INJ 40 MG/0.4 ML DISP.SYRIN SUBCUT SCH (10:00)
[2017-10-24] MEDS: FUROSEMIDE INJ/PF 20 MG/2 ML SDV IV SCH ×2 (11:25→22:49)
[2017-10-24] MEDS: FERROUS SULFATE 325 MG TABLET PO SCH (11:26)
[2017-10-24] MEDS: APIXABAN 5 MG TABLET PO SCH ×2 (11:26→22:49)
[2017-10-24] MEDS: POTASSIUM CHLORIDE 20 MEQ/15 ML UDCUP PO SCH (11:27)
[2017-10-24] MEDS: MIDODRINE HCL 5 MG TABLET PO SCH ×3 (11:27→18:00)
[2017-10-24] MEDS: AZITHROMYCIN 500 MG in DEXTROSE 5%-WATER 250 ML IV SCH (11:28)
--- NOTE | 2017-10-24 17:09 | PDOC PROGRESS REPORT ---
Subjective Progress Note for:: 10/24/17 Subjective:: Patient is not feeling well enough to talk very much therefore I am unable to complete full review of systems. However, she does tell me that she is breathing better. She is feeling very tired. No new chest pain. No abdominal pain nausea or vomiting. I have reviewed her labs, studies, and reports today. Reason For Visit: PNEUMONIA Physical Exam Vital Signs: Temp Pulse Resp BP Pulse Ox 97.4 F 83 18 95/54 L 90 L 10/24/17 13:00 10/24/17 14:27 10/24/17 14:27 10/24/17 13:00 10/24/17 14:27 Intake & Output 10/23/17 10/24/17 10/25/17 06:59 06:59 06:59 Weight 78.4 kg General appearance: PRESENT: mild distress, obese Head exam: PRESENT: atraumatic, normocephalic Eye exam: PRESENT: conjunctiva pink Mouth exam: PRESENT: dry mucosa Neck exam: ABSENT: lymphadenopathy Respiratory exam: PRESENT: decreased breath sounds, rales, unlabored. ABSENT: wheezes Cardiovascular exam: PRESENT: irregular rhythm. ABSENT: tachycardia GI/Abdominal exam: PRESENT: normal bowel sounds, soft. ABSENT: distended, tenderness Rectal exam: PRESENT: deferred Extremities exam: PRESENT: +2 edema Neurological exam: PRESENT: awake, oriented to person, oriented to situation Skin exam: PRESENT: dry, intact, warm Results Laboratory Results: 10/24/17 07:03 10/24/17 04:55 10/24/17 10/24/17 10/24/17 04:55 04:55 07:03 WBC 5.6 5.8 RBC 3.47 L 3.65 L Hgb 7.5 L 7.8 L Hct 23.4 L 25.1 L MCV 67 L 69 L MCH 21.6 L 21.4 L MCHC 32.1 31.2 L RDW 32.1 H 31.7 H Plt Count 182 192 Seg Neutrophils % 73.1 Lymphocytes % 11.0 L Monocytes % 11.1 Eosinophils % 2.3 Basophils % 2.5 H Absolute Neutrophils 4.1 Absolute Lymphocytes 0.6 Absolute Monocytes 0.6 Absolute Eosinophils 0.1 Absolute Basophils 0.1 Retic Count (auto) 1.36 Absolute Retic 0.047 Sodium 136.4 L Potassium 3.7 Chloride 98 Carbon Dioxide 30 Anion Gap 8 BUN 36 H Creatinine 1.12 Est GFR ( Amer) 56 L Est GFR (Non-Af Amer) 46 L Glucose 87 Calcium 8.5 Iron 37.1 TIBC 401 % Saturation 9 Ferritin 9.24 L Total Bilirubin 0.7 AST 35 ALT 50 Alkaline Phosphatase 50 Total Protein 5.1 L Albumin 3.3 L Vitamin B12 890.0 Folate > 20.00 Impressions: Chest X-Ray 10/23/17 14:28 IMPRESSION: NO ACUTE RADIOGRAPHIC FINDING IN THE CHEST. Chest/Abdomen CTA 10/23/17 16:38 IMPRESSION: No pulmonary emboli. Atelectasis or atelectatic infiltrate right lower lung zone. Small right pleural effusion. Large hiatal hernia. Assessment & Plan - Diagnosis (1) Acute renal failure Is this a current diagnosis for this admission?: Yes Plan: Renal functioning is improving with diuresis. Will continue Lasix 20 mg IV every 12 hours and watch renal function and electrolytes closely, along with blood pressure. (2) Acute respiratory failure with hypoxia Is this a current diagnosis for this admission?: Yes Plan: She seems to be having a heart failure exacerbation. She is responding well to oxygen, Lasix. Will continue current care and monitor her vitals and labs closely. (3) Anemia Is this a current diagnosis for this admission?: Yes Plan: She is on Eliquis for A. fib. Her hemoglobin has dropped a little bit and we will monitor closely, trending over the course of today. If she meets criteria we will transfuse. There is no sign of active bleeding. Fecal occult blood test is pending. (4) Atrial fibrillation Qualifiers: Atrial fibrillation type: chronic Qualified Code(s): I48.2 - Chronic atrial fibrillation Is this a current diagnosis for this admission?: Yes Plan: She is currently rate controlled with metoprolol, I have decreased her dose a little bit because she is hypotensive. She is on Eliquis for A. fib stroke prophylaxis. She continues on Eliquis despite hemoglobin dropping a little bit. Fecal occult blood test is pending. We may need to hold her Eliquis. If her hemoglobin continues to drop she may need GI consult. No evidence of active bleeding though. (5) Debility Is this a current diagnosis for this admission?: Yes Plan: She has scoliosis and chronic pain. SHe is wheelchair bound. She is on vicodin q 6 hrs with phenergan for nausea and she is on a fentanyl patch 25 mcg q 72 hrs. These have been ordered. We will watch her BP closely. (6) Diastolic heart failure Qualifiers: Heart failure chronicity: acute on chronic Qualified Code(s): I50.33 - Acute on chronic diastolic (congestive) heart failure Is this a current diagnosis for this admission?: Yes Plan: With an acute exacerbation for whchi she is receiving lasix. BNP very elevated. Will repeat after diresis. Also will check cardiac enzymes, ECHO ordered to eval failure. (7) Dyspnea Plan: Due to CHF flare, cont diuresis and O2. (8) Hypotension Is this a current diagnosis for this admission?: Yes Plan: stable, watch closely, pt needs her pain meds and diuresis, metoprolol cut in half. Not symptomatic at this time. (9) Pneumonia Qualifiers: Laterality: right Lung location: lower lobe of lung Is this a current diagnosis for this admission?: Yes Plan: cont ABX (10) Transaminitis Is this a current diagnosis for this admission?: Yes Plan: due to acute processes, treat underlying conditions and follow LFTs - Time Time Spent with patient: 25-34 minutes - Inpatient Certification Based on my medical assessment, after consideration of the patient's comorbidities, presenting symptoms, or acuity I expect that the services needed warrant INPATIENT care.: Yes I certify that my determination is in accordance with my understanding of Medicare's requirements for reasonable and necessary INPATIENT services [42 CFR 412.3e].: Yes Medical Necessity: Significant Comorbidiites Make Outpatient Treatment Too Risky , Need Close Monitoring Due to Risk of Patient Decompensation, Need for IV Antibiotics, Risk of Complication if Not Cared For in Hospital
[2017-10-24] MEDS: FENTANYL 25 MCG/HR PATCH.TD72 TD SCH (17:46)
[2017-10-24 18:38] LABS: CREATINE KINASE MB 1.01 ng/mL (<4.55)
[2017-10-24 18:42] LABS: TROPONIN I < 0.012 ng/mL
--- NOTE | 2017-10-24 19:19 | XCELERA REPORT ---
[address] [address] Transthoracic Echocardiogram Report Name: MIGUEL CHEATHAM Age: 87 yrs Gender: Female : 1930 Patient Status: Inpatient Patient Location: [address] [place], [place] [address] Study Date: 10/24/2017 03:44 PM Height: 64 in Weight: 159 lb BSA: 1.8 m2 Procedure: A complete two-dimensional transthoracic echocardiogram was performed (2D, M-mode, spectral and color flow Doppler). The study was technically difficult with many images being suboptimal in quality. Reason For Study: chf Ordering Physician: SANA FRAGOSO Performed By: Chasidy Mckenna Interpretation Summary The left ventricular ejection fraction is normal. There is mild concentric left ventricular hypertrophy. Doppler measurements suggest pseudonormalized left ventricular relaxation, which is associated with grade II/IV or mild to moderate diastolic dysfunction The left ventricle is grossly normal size. Wall motion cannot be accurately commented on, but no definite regional wall motion abnormalities noted. The right ventricle is moderately dilated. The right ventricular systolic function is mildly reduced. The left atrial size is normal. The right atrium is normal in size There is a mild amount of mitral regurgitation There is no mitral valve stenosis. No aortic regurgitation is present. There is no aortic valve stenosis There is a mild amount of tricuspid regurgitation There is a trace or physiologic amount of tricuspid regurgitation Tricuspid regurgitation jet envelope not well defined to measure RV systolic pressure accurately. The inferior vena cava appeared normal and decreased < 50% with respiration (RAP 10-15 mmHg) Minimal pericardial effusion. MMode/2D Measurements & Calculations RVDd: 4.1 cm LVIDd: 3.1 cm FS: 30.0 % Ao root diam: 3.6 cm IVSd: 1.2 cm LVIDs: 2.2 cm EDV(Teich): 38.9 ml LVPWd: 1.2 cm ESV(Teich): 16.1 ml Ao root area: 10.0 cm2 EF(Teich): 58.7 % LA dimension: 3.2 cm Doppler Measurements & Calculations MV E max jack: MV P1/2t max jack: Ao V2 max: LV V1 max P.7 cm/sec 136.2 cm/sec 138.5 cm/sec 3.4 mmHg MV A max jack: MV P1/2t: 54.9 msec Ao max PG: LV V1 max: 118.5 cm/sec 7.7 mmHg 92.2 cm/sec MV E/A: 1.1 MVA(P1/2t): 4.0 cm2 MV dec slope: 727.4 cm/sec2 PA V2 max: PI end-d jack: TR max jack: 61.7 cm/sec 106.0 cm/sec 214.5 cm/sec PA max P.5 mmHg TR max P.4 mmHg Left Ventricle The left ventricle is grossly normal size. There is mild concentric left ventricular hypertrophy. The left ventricular ejection fraction is normal. Doppler measurements suggest pseudonormalized left ventricular relaxation, which is associated with grade II/IV or mild to moderate diastolic dysfunction. Wall motion cannot be accurately commented on, but no definite regional wall motion abnormalities noted. Right Ventricle The right ventricle is moderately dilated. The right ventricle appears to be hypertrophied. The right ventricular systolic function is mildly reduced. Atria The right atrium is normal in size. The left atrial size is normal. Interarterial septum not well visualized and not well dopplered. Cannot comment on ASD/PFO presence. Mitral Valve The mitral valve is grossly normal. There is no mitral valve stenosis. There is a mild amount of mitral regurgitation. Aortic Valve The aortic valve is grossly normal. There is no aortic valve stenosis. No aortic regurgitation is present. Tricuspid Valve The tricuspid valve is not well visualized, but is grossly normal. There is no tricuspid stenosis. There is a mild amount of tricuspid regurgitation. There is a trace or physiologic amount of tricuspid regurgitation. Tricuspid regurgitation jet envelope not well defined to measure RV systolic pressure accurately. Pulmonic Valve The pulmonic valve is not well visualized. Great Vessels The aortic root is not well visualized but is probably normal size. The inferior vena cava appeared normal and decreased < 50% with respiration (RAP 10-15 mmHg). Effusions Minimal pericardial effusion. : SANA FRAGOSO > Erica Cadean
[2017-10-24] MEDS ORDERED: APIXABAN 5 MG TABLET PO SCH (22:00)
[2017-10-24] MEDS ORDERED: SIMVASTATIN 10 MG TABLET PO SCH (22:00)
[2017-10-24] MEDS ORDERED: ROPINIROLE HCL 1 MG TABLET PO SCH (22:00)
[2017-10-24] MEDS: CEFTRIAXONE SODIUM 1,000 MG in NORMAL SALINE 50 ML IV SCH (22:48)
[2017-10-24] MEDS: SIMVASTATIN 10 MG TABLET PO SCH (22:48)
[2017-10-24] MEDS: ROPINIROLE HCL 1 MG TABLET PO SCH (22:49)
[2017-10-24] MEDS: METOPROLOL TARTRATE 25 MG TABLET PO SCH (22:56)
[2017-10-24 23:52] LABS: CREATINE KINASE MB 0.74 ng/mL (<4.55)
[2017-10-24 23:53] LABS: TROPONIN I < 0.012 ng/mL
[2017-10-25] MEDS: HYDROCODONE/ACETAMINOPHEN 10-325 MG TABLET PO PRN ×2 (00:20→23:46)
[2017-10-25] MEDS: LEVALBUTEROL HCL NEB 1.25 MG/3 ML AMPUL NEB SCH ×4 (02:04→20:31)
[2017-10-25] MEDS: LEVOTHYROXINE SODIUM 0.05 MG TABLET PO SCH (05:40)
[2017-10-25] MEDS ORDERED: LEVOTHYROXINE SODIUM 0.05 MG TABLET PO SCH (06:00)
[2017-10-25 06:15] LABS: ALANINE AMINOTRANSFERASE 44 U/L (9-52); ALBUMIN 3.2 g/dL (3.5-5.0); ALKALINE PHOSPHATASE 48 U/L (38-126); ANION GAP 11 (5-19); ASPARTATE AMINO TRANSFERASE 26 U/L (14-36); BILIRUBIN,DIRECT 0.2 mg/dL (0.0-0.4); BILIRUBIN,TOTAL 0.4 mg/dL (0.2-1.3); BLOOD UREA NITROGEN 28 mg/dL (7-20); CALCIUM 8.2 mg/dL (8.4-10.2); CARBON DIOXIDE 30 mmol/L (22-30); CHLORIDE 97 mmol/L (98-107); GLUCOSE 111 mg/dL (75-110); POTASSIUM 3.4 mmol/L (3.6-5.0); SODIUM 137.8 mmol/L (137-145); TOTAL PROTEIN 4.9 g/dL (6.3-8.2)
[2017-10-25 06:20] LABS: CREATINE KINASE MB 0.85 ng/mL (<4.55)
[2017-10-25 06:25] LABS: HEMATOCRIT 22.9 % (36.0-47.0); MEAN CORPUSCULAR HEMOGLOBIN 21.4 pg (27.0-33.4); MEAN CORPUSCULAR HGB CONC 31.8 g/dL (32.0-36.0); MEAN CORPUSCULAR VOLUME 67 fl (80-97); PLATELET COUNT 159 10^3/uL (150-450); RED BLOOD COUNT 3.39 10^6/uL (3.72-5.28); RED CELL DISTRIBUTION WIDTH 32.9 % (11.5-14.0); WHITE BLOOD COUNT 4.7 10^3/uL (4.0-10.5)
[2017-10-25 06:26] LABS: CREATINE KINASE < 20 U/L (30-135)
[2017-10-25 06:27] LABS: TROPONIN I < 0.012 ng/mL
[2017-10-25 06:48] LABS: HEMOGLOBIN 7.3 g/dL (12.0-15.5)
[2017-10-25 06:53] LABS: ABSOLUTE LYMPHOCYTES# (MANUAL) 1.1 10^3/uL (0.5-4.7); ABSOLUTE MONOCYTES # (MANUAL) 0.2 10^3/uL (0.1-1.4); ABSOLUTE NEUTROPHILS# (MANUAL) 3.2 10^3/uL (1.7-8.2); BASOPHILS % (MANUAL) 0 % (0-2); EOSINOPHILS % (MANUAL) 3 % (0-6); LYMPHOCYTES % (MANUAL) 23 % (13-45); MONOCYTES % (MANUAL) 5 % (3-13); SEGMENTED NEUTROPHILS % (MAN) 69 % (42-78); TOTAL CELLS COUNTED 100
[2017-10-25 06:56] LABS: HYPOCHROMASIA 3+
[2017-10-25 06:57] LABS: BURR CELLS 1+; OVALOCYTES SLIGHT; PLATELET COMMENT ADEQUATE; POIKILOCYTOSIS 3+; SCHISTOCYTES 1+
[2017-10-25] MEDS ORDERED: POTASSIUM CHLORIDE 10 MEQ PO SCH (08:00)
[2017-10-25] MEDS ORDERED: POTASSIUM CHLORIDE 10 MEQ TABLET.SA PO SCH (08:00)
[2017-10-25 09:14] LABS: ANISOCYTOSIS 3+
[2017-10-25] MEDS: APIXABAN 5 MG TABLET PO SCH ×2 (10:53→20:52)
[2017-10-25] MEDS: FERROUS SULFATE 325 MG TABLET PO SCH (10:53)
[2017-10-25] MEDS: AZITHROMYCIN 500 MG in DEXTROSE 5%-WATER 250 ML IV SCH (10:55)
[2017-10-25] MEDS: MIDODRINE HCL 5 MG TABLET PO SCH ×3 (10:55→17:25)
[2017-10-25] MEDS ORDERED: METOPROLOL TARTRATE 25 MG TABLET PO ONE (11:00)
[2017-10-25] MEDS: METOPROLOL TARTRATE 25 MG TABLET PO SCH ×2 (11:10→20:52)
[2017-10-25] MEDS: FUROSEMIDE INJ/PF 20 MG/2 ML SDV IV SCH ×2 (11:38→20:53)
[2017-10-25] MEDS: POTASSIUM CHLORIDE 20 MEQ/15 ML UDCUP PO SCH (11:39)
[2017-10-25] MEDS: PROMETHAZINE HCL 25 MG TABLET PO PRN ×2 (12:01→23:49)
--- NOTE | 2017-10-25 13:24 | Physician Advisory Note ---
Physician Advisor ProgressNote .: Pursuant to the plan for [facility], I have reviewed the medical record for this patient. Physician Advisor Statement: Really nice documentation overall - Ac on Chr DIastolic type CHF, Chronic type Afib, Please consider documenting, if you agree: 1. "Pneumonia, suspect ____[gram-neg? gram-pos?] type, evidenced by " 2. R.e. KITA (ARF) dx: please document pt's baseline Cr [0.6's? 0.7?], to show how different her current Cr is from baseline & support dx of KITA. 3. R.e. Ac Resp Failure dx: please document any evidence of increased effort needed to breathe [labored breathing, accessory muscle use, tripoding, ...] that pt evidenced this visit, to support dx. 4. ?? - "Possible Anemia of acute blood loss, possibly due to " - or, if there is another specific cause of anemia suspected ... Thanks for your help! ROCHELLE
--- NOTE | 2017-10-25 18:57 | PDOC PROGRESS REPORT ---
Subjective Progress Note for:: 10/25/17 Subjective:: 87-year-old female who is wheelchair bound secondary to scoliosis. She has a history of hypothyroidism osteoporosis hyperlipidemia GERD chronic atrial fibrillation on Eliquis who presented with shortness of breath and was found to have hypoxia was diagnosed with right lower lobe pneumonia. Reason For Visit: PNEUMONIA Physical Exam Vital Signs: Temp Pulse Resp BP Pulse Ox 98.1 F 84 16 92/47 L 98 10/25/17 15:23 10/25/17 15:23 10/25/17 15:23 10/25/17 15:23 10/25/17 15:23 Intake & Output 10/24/17 10/25/17 10/26/17 06:59 06:59 06:59 Intake Total 873 486 Output Total 300 Balance 873 186 Weight 80.4 kg General appearance: PRESENT: no acute distress Eye exam: ABSENT: scleral icterus Ear exam: PRESENT: normal external ear exam Neck exam: ABSENT: tracheal deviation Respiratory exam: PRESENT: clear to auscultation rosana, unlabored Cardiovascular exam: PRESENT: RRR GI/Abdominal exam: PRESENT: normal bowel sounds, soft. ABSENT: tenderness Rectal exam: PRESENT: deferred Results Laboratory Results: 10/25/17 05:28 10/25/17 05:28 10/24/17 10/25/17 10/25/17 04:55 05:28 05:28 WBC 4.7 RBC 3.39 L Hgb 7.3 L Hct 22.9 L MCV 67 L MCH 21.4 L MCHC 31.8 L RDW 32.9 H Plt Count 159 Seg Neutrophils % Not Reportable Lymphocytes % Not Reportable Monocytes % Not Reportable Eosinophils % Not Reportable Basophils % Not Reportable Absolute Neutrophils Not Reportable Absolute Lymphocytes Not Reportable Absolute Monocytes Not Reportable Absolute Eosinophils Not Reportable Absolute Basophils Not Reportable Sodium 137.8 Potassium 3.4 L Chloride 97 L Carbon Dioxide 30 Anion Gap 11 BUN 28 H Creatinine 1.00 Est GFR ( Amer) > 60 Est GFR (Non-Af Amer) 52 L Glucose 111 H Calcium 8.2 L Transferrin 350 Total Bilirubin 0.4 AST 26 ALT 44 Alkaline Phosphatase 48 Total Protein 4.9 L Albumin 3.2 L 10/24/17 10/24/17 10/24/17 17:30 17:30 23:20 Creatine Kinase 22 L < 20 L CK-MB (CK-2) 1.01 Troponin I < 0.012 10/24/17 10/25/17 10/25/17 23:20 05:28 05:28 Creatine Kinase < 20 L CK-MB (CK-2) 0.74 0.85 Troponin I < 0.012 < 0.012 Impressions: Chest X-Ray 10/23/17 14:28 IMPRESSION: NO ACUTE RADIOGRAPHIC FINDING IN THE CHEST. Chest/Abdomen CTA 10/23/17 16:38 IMPRESSION: No pulmonary emboli. Atelectasis or atelectatic infiltrate right lower lung zone. Small right pleural effusion. Large hiatal hernia. Assessment & Plan - Diagnosis (1) Acute renal failure Is this a current diagnosis for this admission?: Yes (2) Acute respiratory failure with hypoxia Is this a current diagnosis for this admission?: Yes (3) Atrial fibrillation Qualifiers: Atrial fibrillation type: chronic Qualified Code(s): I48.2 - Chronic atrial fibrillation Is this a current diagnosis for this admission?: Yes (4) Pneumonia Qualifiers: Laterality: right Lung location: lower lobe of lung Is this a current diagnosis for this admission?: Yes (5) Diastolic heart failure Qualifiers: Heart failure chronicity: acute on chronic Qualified Code(s): I50.33 - Acute on chronic diastolic (congestive) heart failure Is this a current diagnosis for this admission?: Yes - Time Time Spent with patient: 35 or more minutes - Plan Summary Plan Summary: Continue antibiotics for pneumonia. Echocardiogram is pending Continue diuresis for diastolic CHF exacerbation. Monitor intake and output.
[2017-10-25] MEDS: CEFTRIAXONE SODIUM 1,000 MG in NORMAL SALINE 50 ML IV SCH (20:52)
[2017-10-25] MEDS: SIMVASTATIN 10 MG TABLET PO SCH (20:52)
[2017-10-25] MEDS: ROPINIROLE HCL 1 MG TABLET PO SCH (20:53)
[2017-10-26] MEDS: LEVALBUTEROL HCL NEB 1.25 MG/3 ML AMPUL NEB SCH ×2 (01:26→07:48)
[2017-10-26] MEDS: LEVOTHYROXINE SODIUM 0.05 MG TABLET PO SCH (05:53)
[2017-10-26] MEDS: HYDROCODONE/ACETAMINOPHEN 10-325 MG TABLET PO PRN ×2 (05:53→14:58)
[2017-10-26] MEDS: PROMETHAZINE HCL 25 MG TABLET PO PRN (05:53)
[2017-10-26 06:59] LABS: HEMATOCRIT 24.2 % (36.0-47.0); MEAN CORPUSCULAR HEMOGLOBIN 21.3 pg (27.0-33.4); MEAN CORPUSCULAR HGB CONC 31.3 g/dL (32.0-36.0); MEAN CORPUSCULAR VOLUME 68 fl (80-97); PLATELET COUNT 177 10^3/uL (150-450); RED BLOOD COUNT 3.55 10^6/uL (3.72-5.28); RED CELL DISTRIBUTION WIDTH 32.7 % (11.5-14.0); WHITE BLOOD COUNT 4.3 10^3/uL (4.0-10.5)
[2017-10-26 07:11] LABS: ANION GAP 9 (5-19); BLOOD UREA NITROGEN 22 mg/dL (7-20); CALCIUM 8.4 mg/dL (8.4-10.2); CARBON DIOXIDE 29 mmol/L (22-30); CHLORIDE 98 mmol/L (98-107); GLUCOSE 95 mg/dL (75-110); POTASSIUM 3.9 mmol/L (3.6-5.0); SODIUM 135.8 mmol/L (137-145)
[2017-10-26 07:36] LABS: HEMOGLOBIN 7.6 g/dL (12.0-15.5)
[2017-10-26 08:04] LABS: ABSOLUTE LYMPHOCYTES# (MANUAL) 1.2 10^3/uL (0.5-4.7); ABSOLUTE MONOCYTES # (MANUAL) 0.3 10^3/uL (0.1-1.4); ABSOLUTE NEUTROPHILS# (MANUAL) 2.7 10^3/uL (1.7-8.2); BAND NEUTROPHILS % (MANUAL) 1 % (3-5); BASOPHILS % (MANUAL) 1 % (0-2); EOSINOPHILS % (MANUAL) 1 % (0-6); LYMPHOCYTES % (MANUAL) 22 % (13-45); MONOCYTES % (MANUAL) 8 % (3-13); SEGMENTED NEUTROPHILS % (MAN) 62 % (42-78); TOTAL CELLS COUNTED 100
[2017-10-26 08:05] LABS: ANISOCYTOSIS 4+; BURR CELLS SLIGHT; OVALOCYTES 2+; PLATELET COMMENT ADEQUATE; PLATELET LARGE PRESENT; POIKILOCYTOSIS 2+; POLYCHROMASIA 1+; SCHISTOCYTES SLIGHT; TOXIC GRANULATION SLIGHT
[2017-10-26] MEDS ORDERED: METOPROLOL TARTRATE PF/INJ 5 MG/5 ML SDV IV ONE ×2 (09:49→10:30)
[2017-10-26] MEDS ORDERED: NORMAL SALINE 250 ML IV PRN ×3 (10:01→10:04)
[2017-10-26] MEDS ORDERED: FUROSEMIDE INJ/PF 20 MG/2 ML SDV IV PRN (10:01)
[2017-10-26] MEDS ORDERED: FUROSEMIDE INJ/PF 40 MG/4 ML SDV IV PRN (10:04)
[2017-10-26] MEDS ORDERED: DIPHENHYDRAMINE HCL 25 MG CAPSULE PO PRN (10:04)
[2017-10-26] MEDS ORDERED: ACETAMINOPHEN 325 MG TABLET PO PRN (10:04)
[2017-10-26] MEDS: MIDODRINE HCL 5 MG TABLET PO SCH ×3 (10:06→17:22)
[2017-10-26] MEDS: POTASSIUM CHLORIDE 20 MEQ/15 ML UDCUP PO SCH (10:07)
[2017-10-26] MEDS: AZITHROMYCIN 250 MG TABLET PO SCH (10:07)
--- NOTE | 2017-10-26 10:14 | PROGRESS NOTE E ---
Progress Note NAME: MIGUEL CHEATHAM : 1930 AGE: 87Y DATE: 10/26/2017 ROOM: 403 SUBJECTIVE: The patient is currently lying in bed. The patient was seen on rounds. The patient had got up to the bedside commode and the patient's heart rate had gone up to 180, which appeared to be all atrial fibrillation. The patient did admit to some shortness of breath but was not terribly symptomatic to this. The patient's nurse wound is Dr. Cadena. She says her primary is Dr. Mustafa. The patient denies any chest pain. No nausea, vomiting, diarrhea. The patient has been afebrile. Her blood pressures have been on the low end, but this is normal for her as she is chronically on midodrine. The patient does not voice any other concerns at this time. REVIEW OF SYSTEMS: The rest of the review of systems is negative. MEDICATIONS: Medications have been reviewed. OBJECTIVE: GENERAL: The patient is an 87-year-old female who is awake, alert, and oriented to person, place, time, and situation. She is verbal, conversational, does not appear to be in any acute distress. VITAL SIGNS: As follows: Temperature is 97.7, pulse 69, respirations 18, blood pressure is 108/41, oxygen saturation is 100% on 3 L nasal cannula. SKIN: Warm and dry. No rash, not diaphoretic. HEENT: Pupils equal, round, and reactive to light and accommodation. Conjunctiva is pink. No evidence of JVP. CARDIOVASCULAR: Heart is irregularly irregular. No rub. CHEST: Diminished, symmetrical, unlabored. ABDOMEN: Soft, nontender, nondistended. BACK: No CVA tenderness or sacral edema. EXTREMITIES: No clubbing, cyanosis. The patient's lower extremities have evidence of prior significant edema, do appear deflated. PSYCHIATRIC: Appropriate affect. Pleasant mood. DIAGNOSTICS: Lab values are as follows. Hematology obtained on 10/26/2017: WBCs are 4.3, hemoglobin is 7.6, hematocrit is 24.2, platelet count is 177,000. Chemistry obtained on 10/26/2017: Sodium is 135, potassium 3.9, chloride is 98, carbon dioxide is 29, BUN 22, creatinine is 0.83, glucose 95, calcium is 8.4. IMPRESSION AND PLAN: 1. LEFT LOWER LOBE PNEUMONIA. This appears to be community acquired. Will continue current antibiotic coverage as the patient has made significant improvement so far. 2. ACUTE HYPOXEMIC RESPIRATORY FAILURE. Will titrate the patient's O2 as well as decrease nebulizers. 3. ATRIAL FIBRILLATION WITH RAPID VENTRICULAR RESPONSE. Will give a dose of IV Lopressor. At this time it appears the patient did miss some doses of her beta antonia. Will continue to follow. The patient is currently anticoagulated with Eliquis. 4. ACUTE RENAL FAILURE. The patient's creatinine appears to be at baseline. 5. ACUTE ON CHRONIC DIASTOLIC CONGESTIVE HEART FAILURE. The patient appears to be optivolemic at this point. Will transition back to oral diuresis today and follow. 6. OPIATE DEPENDENCY, CONTINUOUS. Will continue the patient's home medications. 7. HYPOTHYROIDISM. Will continue levothyroxine. 8. ANEMIA. Uncertain of the exact etiology of this as the patient's hemoglobin back in December of 2016 was found to be 10; however, October 18 it was 8.9 and has drifted down to 7.6. The patient will obtain guaiac. Type and cross and transfuse 2 units of packed red blood cells and follow. DISPOSITION: THE PATIENT IS A DO NOT RESUSCITATE/DO NOT INTUBATE THE PATIENT EXPRESSED A DESIRE FOR NATURAL . Time spent on this followup, including assessment/plan, physical examination, patient education, review of records, is 35 minutes. DICTATING PHYSICIAN: NORRIS MANTILLA NP [id number] PHY#: [id number] ID: [id number] JOB#: [id number] ACCT: [id number] cc: >
[2017-10-26] MEDS ORDERED: POTASSIUM CHLORIDE 10 MEQ TABLET.SA PO ONE (11:00)
[2017-10-26] MEDS ORDERED: FERROUS SULFATE 325 MG TABLET PO SCH (12:00)
--- NOTE | 2017-10-26 14:32 | PDOC CONSULTATION ---
Consultation Consult Date: 10/26/17 Attending physician:: TORRI PARKS Consult reason:: Anemia History of Present Illness Admission Date/PCP: 10/23/17 19:52 NORRIS NEAL, Patient complains of: Shortness of breath, fatigue, hypoxia History of Present Illness: 79-year-old female with known history of mild anemia who presents with hemoglobin of 8.9, during this hospitalization is dropped to 7.3. In review of iron studies her ferritin was 9. She has had increasing shortness of breath, and her physician's office it was 88% on room air, and she has been more fatigued. She denies any black tarry stool or hematemesis. She does have known history of CHF, BNP was elevated on admission so heart failure has been treated to this point, but the hemoglobin is dropped to 7.3. Past Medical History Cardiac Medical History: Reports: Atrial Fibrillation, Congestive Heart Failure - Diastolic grade 2 Pulmonary Medical History: Reports: Respiratory Failure Denies: Asthma, Chronic Obstructive Pulmonary Disease (COPD) Endocrine Medical History: Reports: Hypothyroidism Musculoskeltal Medical History: Reports: Arthritis Hematology: Denies: Anemia Past Surgical History Past Surgical History: Reports: Orthopedic Surgery, Tonsillectomy, Other - Spinal cord stimulator insertion, ladder suspension cataract surgery, Social History Information Source: Patient Smoking Status: Former Smoker Number of Years Smokin Last Time Smoked: 1979 Frequency of Alcohol Use: None Hx Recreational Drug Use: No Drugs: None Hx Prescription Drug Abuse: No - Advance Directive Resuscitation Status: Do Not Resuscitate Family History Family History: CAD, Malignancy Parental Family History Reviewed: Yes Children Family History Reviewed: Yes Sibling(s) Family History Reviewed.: Yes Medication/Allergy Home Medications: Apixaban [Eliquis] 5 mg PO Q12 10/24/17 Ergocalciferol (Vitamin D2) [Drisdol 50,000 unit (1.25MG) Capsule] 50,000 unit PO LOPES@1000 10/24/17 Fentanyl [Duragesic 25 mcg/hr Transdermal Patch] 1 patch TOP Q3D 10/24/17 Furosemide [Lasix 40 mg Tablet] 40 mg PO DAILY 10/24/17 Hydrocodone Bit/Acetaminophen [Hydrocodon-Acetaminophn 10-325] 1 tab PO Q6HP PRN 10/24/17 Levothyroxine Sodium [Synthroid 0.05 mg Tablet] 0.05 mg PO Q6AM 10/24/17 Metoprolol Tartrate [Lopressor 50 mg Tablet] 50 mg PO Q8 10/24/17 Potassium Chloride [Klor-Con Sprinkle] 10 meq PO [id number] 10/24/17 Promethazine HCl [Phenergan 25 mg Tablet] 25 mg PO TIDHS 10/24/17 Ropinirole HCl [Requip] 1 mg PO QHS 10/24/17 Simvastatin [Zocor 20 mg Tablet] 20 mg PO QHS 10/24/17 Allergies/Adverse Reactions: No Known Allergies Allergy (Verified 10/23/17 14:14) Review of Systems Constitutional: PRESENT: fatigue, weakness Cardiovascular: PRESENT: dyspnea on exertion, orthropnea Gastrointestinal: PRESENT: constipation Neurological: ABSENT: abnormal gait, abnormal speech, confusion, dizziness, focal weakness, syncope Physical Exam Vital Signs: Temp Pulse Resp BP Pulse Ox 98.2 F 88 16 93/35 L 92 10/26/17 11:05 10/26/17 11:05 10/26/17 11:05 10/26/17 11:05 10/26/17 11:05 Intake & Output 10/25/17 10/26/17 10/27/17 06:59 06:59 06:59 Intake Total 873 853 Output Total 700 Balance 873 153 Weight 80.4 kg 80 kg General appearance: PRESENT: no acute distress, well-developed, well-nourished Head exam: PRESENT: atraumatic, normocephalic Eye exam: PRESENT: conjunctiva pink, EOMI, PERRLA. ABSENT: scleral icterus Ear exam: PRESENT: normal external ear exam Mouth exam: PRESENT: moist, tongue midline Neck exam: ABSENT: carotid bruit, JVD, lymphadenopathy, thyromegaly Respiratory exam: PRESENT: clear to auscultation rosana. ABSENT: rales, rhonchi, wheezes Cardiovascular exam: PRESENT: RRR. ABSENT: diastolic murmur, rubs, systolic murmur Pulses: PRESENT: normal dorsalis pedis pul Vascular exam: PRESENT: normal capillary refill GI/Abdominal exam: PRESENT: normal bowel sounds, soft. ABSENT: distended, guarding, mass, organolmegaly, rebound, tenderness Rectal exam: PRESENT: deferred Extremities exam: PRESENT: full ROM. ABSENT: calf tenderness, clubbing, pedal edema Neurological exam: PRESENT: alert, awake, oriented to person, oriented to place , oriented to time, oriented to situation, CN II-XII grossly intact. ABSENT: motor sensory deficit Psychiatric exam: PRESENT: appropriate affect, normal mood. ABSENT: homicidal ideation, suicidal ideation Skin exam: PRESENT: dry, intact, warm. ABSENT: cyanosis, rash Results Laboratory Results: 10/26/17 05:56 10/26/17 05:56 10/26/17 10/26/17 10/26/17 05:56 05:56 10:52 WBC 4.3 RBC 3.55 L Hgb 7.6 L Hct 24.2 L MCV 68 L MCH 21.3 L MCHC 31.3 L RDW 32.7 H Plt Count 177 Seg Neutrophils % Not Reportable Lymphocytes % Not Reportable Monocytes % Not Reportable Eosinophils % Not Reportable Basophils % Not Reportable Absolute Neutrophils Not Reportable Absolute Lymphocytes Not Reportable Absolute Monocytes Not Reportable Absolute Eosinophils Not Reportable Absolute Basophils Not Reportable Sodium 135.8 L Potassium 3.9 Chloride 98 Carbon Dioxide 29 Anion Gap 9 BUN 22 H Creatinine 0.83 Est GFR ( Amer) > 60 Est GFR (Non-Af Amer) > 60 Glucose 95 Calcium 8.4 Blood Type O POSITIVE Antibody Screen NEGATIVE 10/24/17 10/24/17 10/24/17 17:30 17:30 23:20 Creatine Kinase 22 L < 20 L CK-MB (CK-2) 1.01 Troponin I < 0.012 10/24/17 10/25/17 10/25/17 23:20 05:28 05:28 Creatine Kinase < 20 L CK-MB (CK-2) 0.74 0.85 Troponin I < 0.012 < 0.012 Impressions: Chest X-Ray 10/23/17 14:28 IMPRESSION: NO ACUTE RADIOGRAPHIC FINDING IN THE CHEST. Chest/Abdomen CTA 10/23/17 16:38 IMPRESSION: No pulmonary emboli. Atelectasis or atelectatic infiltrate right lower lung zone. Small right pleural effusion. Large hiatal hernia. Assessment & Plan - Diagnosis (1) Anemia Qualifiers: Anemia type: iron deficiency Iron deficiency anemia type: other iron deficiency Qualified Code(s): D50.8 - Other iron deficiency anemias Is this a current diagnosis for this admission?: Yes Plan: Hemoglobin 7.3, ferritin is 9, most likely cause would be blood loss anemia but patient has not had any symptomatology consistent with that. Last colonoscopy was about 5 years ago. At this point would not recommend colonoscopy given her age and comorbidities. Instead we will go ahead and give her 1 unit of blood as well as Feraheme 1 dose. That should bring her hemoglobin to the 9 and 10 range which should be at baseline for her. This should help her hypoxia as well as heart failure status. - Time Time Spent: 50 to 70 Minutes - Inpatient Certification Based on my medical assessment, after consideration of the patient's comorbidities, presenting symptoms, or acuity I expect that the services needed warrant INPATIENT care.: Yes I certify that my determination is in accordance with my understanding of Medicare's requirements for reasonable and necessary INPATIENT services [42 CFR 412.3e].: Yes Medical Necessity: Risk of Complication if Not Cared For in Hospital
[2017-10-26] MEDS: METOPROLOL TARTRATE 25 MG TABLET PO SCH (14:43)
[2017-10-26] MEDS: METOPROLOL TARTRATE 50 MG TABLET PO SCH ×2 (14:45→23:55)
[2017-10-26] MEDS ORDERED: DIPHENHYDRAMINE HCL 25 MG CAPSULE ONE (14:51)
[2017-10-26] MEDS: APIXABAN 5 MG TABLET PO SCH (17:26)
[2017-10-26] MEDS: SIMVASTATIN 10 MG TABLET PO SCH (23:56)
[2017-10-26] MEDS ORDERED: CEFTRIAXONE INJ 1000 MG VIAL ONE (23:56)
[2017-10-26] MEDS: ROPINIROLE HCL 1 MG TABLET PO SCH (23:56)
[2017-10-27] MEDS: METOPROLOL TARTRATE 25 MG TABLET PO SCH
[2017-10-27] MEDS: HYDROCODONE/ACETAMINOPHEN 10-325 MG TABLET PO PRN ×3 (00:15→18:03)
[2017-10-27] MEDS: PROMETHAZINE HCL 25 MG TABLET PO PRN ×3 (00:15→18:04)
[2017-10-27] MEDS: CEFTRIAXONE SODIUM 1,000 MG in NORMAL SALINE 50 ML IV SCH (00:53)
[2017-10-27] MEDS: METOPROLOL TARTRATE 50 MG TABLET PO SCH ×3 (06:45→22:10)
[2017-10-27] MEDS: LEVOTHYROXINE SODIUM 0.05 MG TABLET PO SCH (06:48)
[2017-10-27] MEDS: AZITHROMYCIN 250 MG TABLET PO SCH (09:28)
[2017-10-27] MEDS: MIDODRINE HCL 5 MG TABLET PO SCH ×3 (09:28→18:03)
[2017-10-27] MEDS ORDERED: POTASSIUM CHLORIDE 10 MEQ TABLET.SA PO ONE (10:00)
[2017-10-27] MEDS ORDERED: POTASSIUM CHLORIDE 10 MEQ TABLET.SA PO SCH (10:00)
--- NOTE | 2017-10-27 10:19 | EKG REPORT ---
SEVERITY:- ABNORMAL ECG - SINUS RHYTHM FIRST DEGREE AV BLOCK CONSIDER RVH W/ SECONDARY REPOL ABNORMALITY : Confirmed by: Erica Cadena 27-Oct-2017 10:19:23
--- NOTE | 2017-10-27 11:48 | PROGRESS NOTE E ---
Progress Note NAME: MIGUEL CHEATHAM : 1930 AGE: 87Y DATE: 10/27/2017 ROOM: 309 SUBJECTIVE: The patient is currently lying in bed. She states today she does feel better in comparison to yesterday. The patient denies any nausea, vomiting, or diarrhea. Still has shortness of breath but overall improved in comparison to yesterday. The patient's daughter is present at the bedside and active in the patient's care. The patient has had no reported episodes of vomiting nor diarrhea, and the patient does not voice any other concerns at this time. REVIEW OF SYSTEMS: Rest of the review of systems negative. MEDICATIONS: Have been reviewed. OBJECTIVE: GENERAL: The patient is an 87-year-old female who is awake, alert, and oriented to person, place, time, and situation. She is verbal, conversational, and does not appear to be in any acute distress. VITAL SIGNS: Temperature 98.3, pulse 80, respirations 18, blood pressure is 108/55, oxygen saturation is 93% on 2 L nasal cannula. SKIN: Warm and dry. No rash. She is not diaphoretic. HEENT: Pupils equal, round, reactive to light and accommodation. Conjunctivae are pink. No evidence of JVP. CARDIOVASCULAR: Heart is regular with no rub. CHEST: The patient does have bilateral basal crackles which are fine as well as some scattered wheezes. Chest is symmetrical and unlabored. ABDOMEN: Soft, nontender, nondistended. BACK: No CVA tenderness or sacral edema. EXTREMITIES: No clubbing, cyanosis, or edema. PSYCHIATRIC: Appropriate affect. Pleasant mood. DIAGNOSTICS: Lab values are as follows: Hematology obtained on 10/26/2017: WBCs are 4.3, hemoglobin is 7.6, hematocrit is 24.2, platelet count is 177,000. Chemistry obtained on 10/26/2017: Sodium is 135, potassium 3.9, chloride is 98, carbon dioxide is 29, BUN 22, creatinine is 0.83, glucose 95, calcium is 8.4. EKG obtained on 10/27/2017 reveals sinus rhythm with a first degree block. IMPRESSION AND PLAN: 1. LEFT LOWER LOBE PNEUMONIA. This is felt to be community acquired. Continue current antibiotic coverage but will transition to p.o. Encourage pulmonary toileting. The patient overall is much improved in comparison to yesterday. 2. ACUTE HYPOXEMIC RESPIRATORY FAILURE. Will titrate the patient's O2 as much as possible. Encouraged the patient to get out of bed to the bedside chair. 3. ATRIAL FIBRILLATION WITH RAPID VENTRICULAR RESPONSE. The patient responded very well to IV beta antonia. Will continue to follow. Have minimized the patient's nebulizer. She is anticoagulated with Eliquis and the patient appears to be in sinus rhythm. Do appreciate Dr. Cadena's input on this. 4. ACUTE RENAL FAILURE. Creatinine appears to be at baseline. 5. [id number] DIASTOLIC CONGESTIVE HEART FAILURE. The patient does appears to be a little volume overloaded at this point. Will give another dose of IV Lasix and follow. 6. OPIATE DEPENDENCY CONTINUOUS. Will continue the patient's home medications. 7. HYPOTHYROIDISM. Continue levothyroxine. 8. ANEMIA. Uncertain of the exact etiology of this. The patient's hemoglobin back in December of 2016 was found to be 10, in October it was 8.9, and now has drifted down to 7.6. Given that the patient is symptomatic, she was transfused. Do appreciate Dr. Lin's input on this. The patient is to be guaiac and has been transfused a unit of packed red blood cells as well as Feraheme. Will follow. DISPOSITION: The patient is a DO NOT RESUSCITATE/DO NOT INTUBATE as the patient expressed a desire for natural . Time spent on this followup including assessment, plan, physical examination, patient education, review of records, and family meeting is 35 minutes. DICTATING PHYSICIAN: NORRIS MANTILLA NP [id number] PHY#: [id number] ID: [id number] JOB#: [id number] ACCT: [id number] cc: >
--- NOTE | 2017-10-27 12:03 | PDOC CONSULTATION ---
Consultation Consult Date: 10/26/17 Attending physician:: SANA FRAGOSO Consult reason:: Shortness of breath History of Present Illness Admission Date/PCP: 10/23/17 19:52 NORRIS NEAL, Patient complains of: Palpitations and shortness of breath History of Present Illness: 79-year-old female with known history of mild anemia who presents with hemoglobin of 8.9, during this hospitalization is dropped to 7.3. In review of iron studies her ferritin was 9. She has had increasing shortness of breath, and her physician's office it was 88% on room air, and she has been more fatigued. She denies any black tarry stool or hematemesis. She does have known history of CHF, BNP was elevated on admission so heart failure has been treated to this point, but the hemoglobin is dropped to 7.3. This history was reviewed, confirmed and supplemented. Patient has a history of paroxysmal atrial fibrillation. Review of telemetry strip shows very transient A. fib during this admission but predominantly patient is having sinus rhythm. Patient has also noted some increasing pedal edema. Past Medical History Cardiac Medical History: Reports: Atrial Fibrillation, Congestive Heart Failure - Diastolic grade 2 Pulmonary Medical History: Reports: Respiratory Failure Denies: Asthma, Chronic Obstructive Pulmonary Disease (COPD) Endocrine Medical History: Reports: Hypothyroidism Musculoskeltal Medical History: Reports: Arthritis Hematology: Denies: Anemia Past Surgical History Past Surgical History: Reports: Orthopedic Surgery, Tonsillectomy, Other - Spinal cord stimulator insertion, ladder suspension cataract surgery, Social History Information Source: Patient Smoking Status: Former Smoker Number of Years Smokin Last Time Smoked: 1979 Frequency of Alcohol Use: None Hx Recreational Drug Use: No Drugs: None Hx Prescription Drug Abuse: No - Advance Directive Resuscitation Status: Do Not Resuscitate Surrogate healthcare decision maker:: Patient's children at the surrogate decision-maker Family History Family History: CAD, Malignancy Parental Family History Reviewed: Yes Children Family History Reviewed: Yes Sibling(s) Family History Reviewed.: Yes Medication/Allergy Home Medications: Apixaban [Eliquis] 5 mg PO Q12 10/24/17 Ergocalciferol (Vitamin D2) [Drisdol 50,000 unit (1.25MG) Capsule] 50,000 unit PO LOPES@1000 10/24/17 Fentanyl [Duragesic 25 mcg/hr Transdermal Patch] 1 patch TOP Q3D 10/24/17 Furosemide [Lasix 40 mg Tablet] 40 mg PO DAILY 10/24/17 Hydrocodone Bit/Acetaminophen [Hydrocodon-Acetaminophn 10-325] 1 tab PO Q6HP PRN 10/24/17 Levothyroxine Sodium [Synthroid 0.05 mg Tablet] 0.05 mg PO Q6AM 10/24/17 Metoprolol Tartrate [Lopressor 50 mg Tablet] 50 mg PO Q8 10/24/17 Potassium Chloride [Klor-Con Sprinkle] 10 meq PO WBRKFST 10/24/17 Promethazine HCl [Phenergan 25 mg Tablet] 25 mg PO TIDHS 10/24/17 Ropinirole HCl [Requip] 1 mg PO QHS 10/24/17 Simvastatin [Zocor 20 mg Tablet] 20 mg PO QHS 10/24/17 Allergies/Adverse Reactions: No Known Allergies Allergy (Verified 10/23/17 14:14) Review of Systems Review of Systems: Please see history of present illness and past medical history as wall. Constitutional: No fever or chills reported. Generalized weakness reported. Head : No recent chronic headaches, recent head injury. Eyes: No recent eye pain, diplopia, redness, discharge, acute visual changes. Ears: No recent chronic ear pain, acute hearing loss, ear discharge. Oral cavity: No recent ulcerations, bleeding, oral cavity discomfort. Neck: No recent acute neck pain reported. Hematologic: No recent easy bruising or bleeding or hematologic malignancy reported. Lymphatic: No recent lymphatic malignancy, chronic lymphadenopathy reported yet Cardiovascular system review: See history of present illness. Respiratory system review: No recent chronic cough, hemoptysis, blood clots in the lungs reported. Increasing shortness of breath and some pedal edema reported Gastrointestinal system review: Negative for any recent acute or chronic abdominal pain, hematemesis, melena, recent change in bowel habits. Genitourinary system review: No recent acute or chronic hematuria, flank pain, UTI etc. reported. Skin system review: Negative for any recent abnormal bruising, no rash, no pruritus reported. Neurologic: No prior history of strokes, mini strokes, seizure disorder. Psychologic: No history of major psychosis or major depression reported. Musculoskeletal: Minor aches and pains reported. No acute joint swelling reported. Endocrine: No recent polyuria, polydipsia, recent heat or cold intolerance. Physical Exam Vital Signs: Temp Pulse Resp BP Pulse Ox 97.9 F 81 18 106/50 L 98 10/26/17 19:00 10/26/17 19:00 10/26/17 19:00 10/26/17 19:00 10/26/17 19:00 Intake & Output 10/25/17 10/26/17 10/27/17 06:59 06:59 06:59 Intake Total 873 853 850 Output Total 700 Balance 873 153 850 Weight 80.4 kg 80 kg Results Laboratory Results: 10/26/17 05:56 10/26/17 05:56 10/26/17 10/26/17 10/26/17 05:56 05:56 10:52 WBC 4.3 RBC 3.55 L Hgb 7.6 L Hct 24.2 L MCV 68 L MCH 21.3 L MCHC 31.3 L RDW 32.7 H Plt Count 177 Seg Neutrophils % Not Reportable Lymphocytes % Not Reportable Monocytes % Not Reportable Eosinophils % Not Reportable Basophils % Not Reportable Absolute Neutrophils Not Reportable Absolute Lymphocytes Not Reportable Absolute Monocytes Not Reportable Absolute Eosinophils Not Reportable Absolute Basophils Not Reportable Sodium 135.8 L Potassium 3.9 Chloride 98 Carbon Dioxide 29 Anion Gap 9 BUN 22 H Creatinine 0.83 Est GFR ( Amer) > 60 Est GFR (Non-Af Amer) > 60 Glucose 95 Calcium 8.4 Blood Type O POSITIVE Antibody Screen NEGATIVE 10/24/17 10/24/17 10/24/17 17:30 17:30 23:20 Creatine Kinase 22 L < 20 L CK-MB (CK-2) 1.01 Troponin I < 0.012 10/24/17 10/25/17 10/25/17 23:20 05:28 05:28 Creatine Kinase < 20 L CK-MB (CK-2) 0.74 0.85 Troponin I < 0.012 < 0.012 EKG Comments: Sinus rhythm with some minor nonspecific T-wave changes noted. Impressions: Chest X-Ray 10/23/17 14:28 IMPRESSION: NO ACUTE RADIOGRAPHIC FINDING IN THE CHEST. Chest/Abdomen CTA 10/23/17 16:38 IMPRESSION: No pulmonary emboli. Atelectasis or atelectatic infiltrate right lower lung zone. Small right pleural effusion. Large hiatal hernia. Assessment & Plan - Diagnosis (1) Atrial fibrillation Qualifiers: Atrial fibrillation type: paroxysmal Qualified Code(s): I48.0 - Paroxysmal atrial fibrillation Is this a current diagnosis for this admission?: Yes (2) Anemia Qualifiers: Anemia type: iron deficiency Iron deficiency anemia type: other iron deficiency Qualified Code(s): D50.8 - Other iron deficiency anemias Is this a current diagnosis for this admission?: Yes (3) Diastolic heart failure Qualifiers: Heart failure chronicity: acute on chronic Qualified Code(s): I50.33 - Acute on chronic diastolic (congestive) heart failure Is this a current diagnosis for this admission?: Yes (4) Hyperlipidemia Qualifiers: Hyperlipidemia type: unspecified Qualified Code(s): E78.5 - Hyperlipidemia , unspecified Is this a current diagnosis for this admission?: Yes (5) Hypotension Qualifiers: Hypotension type: unspecified hypotension type Qualified Code(s): I95.9 - Hypotension, unspecified Is this a current diagnosis for this admission?: Yes (6) Debility Is this a current diagnosis for this admission?: Yes - Notes Notes: Atrial fibrillation: Paroxysmal. Currently on rate controlled with beta- antonia. Patient also on Eliquis. May consider reducing Eliquis dose to 2.5 mg p.o. twice daily in view of her advanced age and mild reduction of GFR. However Eliquis is on hold right now pending ruling out acute bleeding. Hypotension: Patient currently on Midodrin therapy. Continue with it. May add digoxin at low-dose for rate control if needed. Diastolic heart failure: Acute on chronic, most likely precipitated by anemia. Currently patient undergoing iron therapy. Mechanical Adjuster is involved in the care. Hyperlipidemia: Currently on simvastatin therapy. General debility: Patient will benefit from physical therapy, correction of anemia etc. 2D echo from this hospitalization reviewed showed normal LVEF with some diastolic dysfunction. - Time Time Spent: 30 to 50 Minutes - CODE STATUS : was discussed, patient remains DO NOT RESUSCITATE. Surrogate decision-maker unchanged. Multiple medical problems were addressed. More than 50% of the time spent coordinating care, discussing management plans with involved caregivers. Management plans discussed with involved personnels. Medical decision making was of moderate to high complexity, patient's has multiple comorbidities. Medications reviewed and adjusted accordingly: Yes
[2017-10-27 12:04] LABS: HEMOGLOBIN 9.3 g/dL (12.0-15.5); MEAN CORPUSCULAR HGB CONC 31.1 g/dL (32.0-36.0); MEAN CORPUSCULAR VOLUME 71 fl (80-97); PLATELET COUNT 224 10^3/uL (150-450); RED BLOOD COUNT 4.25 10^6/uL (3.72-5.28); RED CELL DISTRIBUTION WIDTH 31.8 % (11.5-14.0); WHITE BLOOD COUNT 5.3 10^3/uL (4.0-10.5)
[2017-10-27 12:20] LABS: ANION GAP 11 (5-19); BLOOD UREA NITROGEN 23 mg/dL (7-20); CARBON DIOXIDE 30 mmol/L (22-30); CHLORIDE 96 mmol/L (98-107); GLUCOSE 132 mg/dL (75-110); MAGNESIUM 1.7 mg/dL (1.6-2.3); POTASSIUM 4.5 mmol/L (3.6-5.0)
[2017-10-27] MEDS ORDERED: FUROSEMIDE INJ/PF 20 MG/2 ML SDV IV ONE (13:00)
[2017-10-27] MEDS: LACTULOSE SYRUP 20 GM/30 ML UDCUP PO SCH ×3 (13:04→18:02)
--- NOTE | 2017-10-27 13:11 | PDOC PROGRESS REPORT ---
Subjective Progress Note for:: 10/27/17 Subjective:: Patient feeling better this morning, hemoglobin has improved. Still has not had a BM. Reason For Visit: PNEUMONIA Physical Exam Vital Signs: Temp Pulse Resp BP Pulse Ox 98.8 F 91 18 104/62 93 10/27/17 11:42 10/27/17 11:42 10/27/17 11:42 10/27/17 11:42 10/27/17 11:42 Intake & Output 10/26/17 10/27/17 10/28/17 06:59 06:59 06:59 Intake Total 853 1150 Output Total 700 500 Balance 153 650 Weight 80 kg 79.9 kg General appearance: PRESENT: no acute distress, well-developed, well-nourished Head exam: PRESENT: atraumatic, normocephalic Eye exam: PRESENT: conjunctiva pink, EOMI, PERRLA. ABSENT: scleral icterus Ear exam: PRESENT: normal external ear exam Mouth exam: PRESENT: moist, tongue midline Neck exam: ABSENT: carotid bruit, JVD, lymphadenopathy, thyromegaly Respiratory exam: PRESENT: clear to auscultation rosana. ABSENT: rales, rhonchi, wheezes Cardiovascular exam: PRESENT: RRR. ABSENT: diastolic murmur, rubs, systolic murmur Pulses: PRESENT: normal dorsalis pedis pul Vascular exam: PRESENT: normal capillary refill GI/Abdominal exam: PRESENT: normal bowel sounds, soft. ABSENT: distended, guarding, mass, organolmegaly, rebound, tenderness Rectal exam: PRESENT: deferred Extremities exam: PRESENT: full ROM. ABSENT: calf tenderness, clubbing, pedal edema Neurological exam: PRESENT: alert, awake, oriented to person, oriented to place , oriented to time, oriented to situation, CN II-XII grossly intact. ABSENT: motor sensory deficit Psychiatric exam: PRESENT: appropriate affect, normal mood. ABSENT: homicidal ideation, suicidal ideation Skin exam: PRESENT: dry, intact, warm. ABSENT: cyanosis, rash Results Laboratory Results: 10/27/17 11:25 10/27/17 11:25 10/26/17 10/27/17 10/27/17 10:52 11:25 11:25 WBC 5.3 RBC 4.25 Hgb 9.3 L Hct 30.0 L MCV 71 L MCH 22.0 L MCHC 31.1 L RDW 31.8 H Plt Count 224 Sodium 137.0 Potassium 4.5 Chloride 96 L Carbon Dioxide 30 Anion Gap 11 BUN 23 H Creatinine 0.89 Est GFR ( Amer) > 60 Est GFR (Non-Af Amer) > 60 Glucose 132 H Calcium 9.0 Magnesium 1.7 Blood Type O POSITIVE Antibody Screen NEGATIVE 10/24/17 10/24/17 10/24/17 17:30 17:30 23:20 Creatine Kinase 22 L < 20 L CK-MB (CK-2) 1.01 Troponin I < 0.012 10/24/17 10/25/17 10/25/17 23:20 05:28 05:28 Creatine Kinase < 20 L CK-MB (CK-2) 0.74 0.85 Troponin I < 0.012 < 0.012 Impressions: Chest X-Ray 10/23/17 14:28 IMPRESSION: NO ACUTE RADIOGRAPHIC FINDING IN THE CHEST. Chest/Abdomen CTA 10/23/17 16:38 IMPRESSION: No pulmonary emboli. Atelectasis or atelectatic infiltrate right lower lung zone. Small right pleural effusion. Large hiatal hernia. Assessment & Plan - Diagnosis (1) Anemia Qualifiers: Anemia type: iron deficiency Iron deficiency anemia type: other iron deficiency Qualified Code(s): D50.8 - Other iron deficiency anemias Is this a current diagnosis for this admission?: Yes Plan: Patient given blood and iron, we will need to monitor over the next 24-48 hours to make sure he does not fall. We will need to monitor as an outpatient and check her iron levels.
[2017-10-27] MEDS ORDERED: FERUMOXYTOL (NON-ESRD) 510 MG/NS 100 ML IV ONE ×2 (14:00)
[2017-10-27] MEDS ORDERED: CEFUROXIME 500 MG TABLET PO ONE (14:00)
[2017-10-27] MEDS: FENTANYL 25 MCG/HR PATCH.TD72 TD SCH (18:03)
[2017-10-27] MEDS: ROPINIROLE HCL 1 MG TABLET PO SCH (22:09)
[2017-10-27] MEDS: SIMVASTATIN 10 MG TABLET PO SCH (22:09)
[2017-10-27] MEDS: CEFUROXIME 500 MG TABLET PO SCH (22:09)
[2017-10-28] MEDS: PROMETHAZINE HCL 25 MG TABLET PO PRN ×3 (00:09→23:07)
[2017-10-28] MEDS: HYDROCODONE/ACETAMINOPHEN 10-325 MG TABLET PO PRN ×3 (00:10→23:07)
[2017-10-28 05:06] LABS: HEMATOCRIT 28.5 % (36.0-47.0); HEMOGLOBIN 9.1 g/dL (12.0-15.5); MEAN CORPUSCULAR HEMOGLOBIN 22.8 pg (27.0-33.4); MEAN CORPUSCULAR VOLUME 71 fl (80-97); PLATELET COUNT 163 10^3/uL (150-450); RED CELL DISTRIBUTION WIDTH 31.9 % (11.5-14.0)
[2017-10-28 05:24] LABS: ANION GAP 10 (5-19); BLOOD UREA NITROGEN 22 mg/dL (7-20); CALCIUM 9.4 mg/dL (8.4-10.2); CARBON DIOXIDE 29 mmol/L (22-30); CHLORIDE 98 mmol/L (98-107); GLUCOSE 83 mg/dL (75-110); MAGNESIUM 1.7 mg/dL (1.6-2.3); POTASSIUM 4.3 mmol/L (3.6-5.0)
[2017-10-28] MEDS: METOPROLOL TARTRATE 50 MG TABLET PO SCH ×3 (05:52→22:44)
[2017-10-28] MEDS: LEVOTHYROXINE SODIUM 0.05 MG TABLET PO SCH (05:52)
[2017-10-28] MEDS: CEFUROXIME 500 MG TABLET PO SCH ×2 (09:43→22:43)
[2017-10-28] MEDS: AZITHROMYCIN 250 MG TABLET PO SCH (09:43)
[2017-10-28] MEDS: POTASSIUM CHLORIDE 10 MEQ TABLET.SA PO SCH (09:44)
[2017-10-28] MEDS: MIDODRINE HCL 5 MG TABLET PO SCH ×3 (09:45→17:24)
[2017-10-28] MEDS: FUROSEMIDE 40 MG TABLET PO SCH (09:45)
[2017-10-28] MEDS ORDERED: ERGOCALCIFEROL (VITAMIN D2) 50000 UNIT (1.25 MG) CAPSULE PO SCH (10:00)
--- NOTE | 2017-10-28 12:23 | PDOC PROGRESS REPORT ---
Subjective Progress Note for:: 10/28/17 Subjective:: Patient seems to be doing better with gradual improvement. Pt is denying any chest arm or neck discomfort. Patient denying any PND, orthopnea. Patient denied any sustained palpitations, dizziness, syncope, near syncope. Patient denying any fever chills. Patient denying any other significant discomfort. Patient is maintaining sinus rhythm. Patient however noted to have an episode of paroxysmal atrial tachycardia/atrial fibrillation Review of systems: Rest review of systems negative. Medications: Medications have been reviewed. Reason For Visit: PNEUMONIA Physical Exam Vital Signs: Temp Pulse Resp BP Pulse Ox 99.1 F 73 22 H 99/54 L 92 10/28/17 08:12 10/28/17 08:12 10/28/17 08:12 10/28/17 08:12 10/28/17 08:12 Intake & Output 10/27/17 10/28/17 10/29/17 06:59 06:59 06:59 Intake Total 1150 750 Output Total 500 1400 Balance 650 -650 Weight 79.9 kg 85.7 kg Exam: GENERAL: well-nourished and in no acute distress. Alert and oriented x3 HEAD: Atraumatic, normocephalic. EYES: Pupils equal round and reactive to light, extraocular movements intact, sclera anicteric, conjunctiva are normal. ENT: TMs normal, nares patent, oropharynx clear without exudates. Moist mucous membranes. No oral ulcerations or bleeding gums noted NECK: supple without lymphadenopathy. Trachea is central. No cervical or axillary lymphadenopathy noted. Carotids are 2+, JVD WNL LUNGS: Respiration seems nonlabored, no significant accessory muscle action noted. Breath sounds clear to auscultation bilaterally and equal noted. No wheezes rales or rhonchi noted. No significant dullness noted on percussion. CHEST: Palpation of the chest wall shows no significant chest wall tenderness. No other significant abnormalities noted. HEART: [place] [employer], No PSH, 1/6 [place] aortic area, 1/6 aguirre systolic murmur mitral area, no rubs, no gallops. ABDOMEN: Soft, no significant tenderness appreciated, normoactive bowel sounds. No guarding, no rebound. No rigidity noted . No masses appreciated. EXTREMITIES: Pedal pulses are 1-2+, no calf tenderness noted. No clubbing or cyanosis.1+ pedal edema noted NEUROLOGICAL: Focused neurological exam showed no significant neurologic deficit. Normal speech, no focal weakness appreciated. PSYCH: Normal mood, normal affect. Judgment and insight within normal limits. SKIN: No significant ecchymosis, rash, ulcerations or signs of pruritus noted. MUSCULOSKELETAL EXAM: No significant joint swelling noted. Results Laboratory Results: 10/28/17 04:10 10/28/17 04:10 10/27/17 10/27/17 10/28/17 11:25 11:25 04:10 WBC 5.3 6.0 RBC 4.25 4.00 Hgb 9.3 L 9.1 L Hct 30.0 L 28.5 L MCV 71 L 71 L MCH 22.0 L 22.8 L MCHC 31.1 L 32.0 RDW 31.8 H 31.9 H Plt Count 224 163 Sodium 137.0 Potassium 4.5 Chloride 96 L Carbon Dioxide 30 Anion Gap 11 BUN 23 H Creatinine 0.89 Est GFR ( Amer) > 60 Est GFR (Non-Af Amer) > 60 Glucose 132 H Calcium 9.0 Magnesium 1.7 10/28/17 04:10 WBC RBC Hgb Hct MCV MCH MCHC RDW Plt Count Sodium 137.0 Potassium 4.3 Chloride 98 Carbon Dioxide 29 Anion Gap 10 BUN 22 H Creatinine 0.86 Est GFR ( Amer) > 60 Est GFR (Non-Af Amer) > 60 Glucose 83 Calcium 9.4 Magnesium 1.7 10/24/17 10/24/17 10/24/17 17:30 17:30 23:20 Creatine Kinase 22 L < 20 L CK-MB (CK-2) 1.01 Troponin I < 0.012 10/24/17 10/25/17 10/25/17 23:20 05:28 05:28 Creatine Kinase < 20 L CK-MB (CK-2) 0.74 0.85 Troponin I < 0.012 < 0.012 Impressions: Chest X-Ray 10/23/17 14:28 IMPRESSION: NO ACUTE RADIOGRAPHIC FINDING IN THE CHEST. Chest/Abdomen CTA 10/23/17 16:38 IMPRESSION: No pulmonary emboli. Atelectasis or atelectatic infiltrate right lower lung zone. Small right pleural effusion. Large hiatal hernia. Assessment & Plan - Diagnosis (1) Atrial fibrillation Qualifiers: Atrial fibrillation type: paroxysmal Qualified Code(s): I48.0 - Paroxysmal atrial fibrillation Is this a current diagnosis for this admission?: Yes (2) Anemia Qualifiers: Anemia type: iron deficiency Iron deficiency anemia type: other iron deficiency Qualified Code(s): D50.8 - Other iron deficiency anemias Is this a current diagnosis for this admission?: Yes (3) Diastolic heart failure Qualifiers: Heart failure chronicity: acute on chronic Qualified Code(s): I50.33 - Acute on chronic diastolic (congestive) heart failure Is this a current diagnosis for this admission?: Yes (4) Hyperlipidemia Qualifiers: Hyperlipidemia type: unspecified Qualified Code(s): E78.5 - Hyperlipidemia , unspecified Is this a current diagnosis for this admission?: Yes (5) Hypotension Qualifiers: Hypotension type: unspecified hypotension type Qualified Code(s): I95.9 - Hypotension, unspecified Is this a current diagnosis for this admission?: Yes (6) Debility Is this a current diagnosis for this admission?: Yes - Notes Notes: Hemoglobin has improved. Patient noted to have short run of paroxysmal atrial tachycardia on cardiac monitoring. Atrial fibrillation: Paroxysmal. Currently on rate controlled with beta- antonia. Recommend switching to metoprolol succinate for smoother action. Patient also on Eliquis. May consider reducing Eliquis dose to 2.5 mg p.o. twice daily in view of her advanced age and mild reduction of GFR. However Eliquis is on hold right now pending ruling out acute bleeding. Hypotension: Patient currently on Midodrin therapy. Continue with it. May add digoxin at low-dose for rate control if needed. Diastolic heart failure: Acute on chronic, most likely precipitated by anemia. Currently patient undergoing iron therapy. Recruiting And Selection Consultant is involved in the care. Hyperlipidemia: Currently on simvastatin therapy. General debility: Patient will benefit from physical therapy, correction of anemia etc. 2D echo from this hospitalization reviewed showed normal LVEF with some diastolic dysfunction. - Time Time with patient: 15-25 minutes - CODE STATUS was discussed, patient remains full code. Surrogate decision-maker unchanged. Multiple medical problems were addressed. More than 50% of the time spent coordinating care, discussing management plans with involved caregivers. Management plans discussed with involved personnels. Medical decision making was of moderate to high complexity , patient's has multiple comorbidities. Medications reviewed and adjusted accordingly: Yes
[2017-10-28] MEDS: LEVALBUTEROL HCL NEB 1.25 MG/3 ML AMPUL NEB PRN (12:52)
[2017-10-28] MEDS ORDERED: POLYETHYLENE GLYCOL 3350 POWDER 17 GM/1 PACKET PO PRN (14:10)
--- NOTE | 2017-10-28 15:29 | PROGRESS NOTE E ---
Progress Note NAME: MIGUEL CHEATHAM : 1930 AGE: 87Y DATE: 10/28/2017 ROOM: 309 SUBJECTIVE: The patient is lying in bed. The patient has had numerous bowel movements over the past 24 hours, which she now describes herself exhausted. The patient admits to increasing dyspnea with activity. The patient's O2 is currently being titrated, and when she has to get up to the bedside commode, she has to be titrated up to 4 liters. The patient has had no reported episodes of abdominal pain. No heart palpitations. The patient does not voice any other concerns at this time. BRIEF HISTORY: The patient was admitted due to increasing shortness of breath. The patient was found to have a left lower lobe pneumonia and was requiring O2. Additionally, the patient went into rapid ventricular response as well as acute heart failure. Additionally, the patient does have underlying chronic anemia. The patient was found to have a low ferritin and ultimately required a transfusion. The patient was seen by Dr. Lin, whom her son-in-law also sees. The patient was also given Feraheme with this. Given the patient's rapid ventricular response, she was seen by her process development manager that she follows outpatient, Dr. Cadena, and the patient responded well to IV beta antonia and is back to her rate-controlled area. The patient has been difficult to titrate from O2. The patient was given IV Lasix as of 10/27/2017; however, given the patient's clinical findings, will give a diuretic holiday today and repeat chemistries and reevaluate in the a.m. Additionally, will repeat chest x-ray in the a.m. for comparison of pneumonia versus CHF. REVIEW OF SYSTEMS: The rest of the review of systems is negative. MEDICATIONS: Reviewed. OBJECTIVE: GENERAL: The patient is an 87-year-old female who is awake, alert. She is oriented to person, place, time and situation. Verbal and conversational. Does not appear to be in distress. VITAL SIGNS: Temperature is 99.0, pulse 73, respirations 22, blood pressure is 99/54, oxygen saturation is 92% on 3 liters nasal cannula. SKIN: Warm and dry. No rash. She is not diaphoretic. HEENT: Pupils are reactive. No evidence of JVP. Mucous membranes are moist. CVS: Heart is irregularly irregular. No rub. CHEST: Clear, symmetrical, unlabored. Overall diminished, especially on the right side. ABDOMEN: Soft, nontender, nondistended. EXTREMITIES: No clubbing or cyanosis. The patient does have evidence of prior chronic edema, which appears to be resolved. PSYCHIATRIC: Appropriate affect. Pleasant mood. DIAGNOSTICS: Lab values are as follows: Hematology obtained on 10/28/2017: WBCs are 6.0, hemoglobin is 9.1, hematocrit is 28.5, platelet count is 163,000. Chemistry obtained on 10/28/2017: Sodium is 137, potassium 4.3, chloride is 98, carbon dioxide is 29, BUN 22, creatinine 0.86. Glucose 83. Calcium 8.4, magnesium is 1.7. IMPRESSION AND PLAN: 1. COMMUNITY-ACQUIRED LEFT LOWER LOBE PNEUMONIA. We will continue antibiotic coverage. It has been transitioned to p.o. Have encouraged pulmonary toileting. Overall much improved. Will repeat chest x-ray in the a.m. for comparison, as the patient also has an element of failure. 2. ACUTE HYPOXEMIC RESPIRATORY FAILURE. Have titrated O2 as much as possible. Will encourage ambulation and to be out of bed to the bedside chair. 3. ATRIAL FIBRILLATION WITH RAPID VENTRICULAR RESPONSE. The patient responded very well to IV beta antonia. Will continue her home medications. Her Eliquis has been stopped, given the patient's anemia. The patient is currently in sinus rhythm. Do appreciate Tammi's input with this. 4. ACUTE RENAL FAILURE. Patient's creatinine appears to be around baseline. 5. ACUTE ON CHRONIC DIASTOLIC CONGESTIVE HEART FAILURE. The patient was last diuresed yesterday. Will give a diuretic holiday today and repeat chemistries and clinical findings in the a.m. 6. OPIATE DEPENDENCY, CONTINUOUS. Will continue the patient's home medications. 7. HYPOTHYROIDISM. Continue levothyroxine. 8. IRON DEFICIENCY ANEMIA. Uncertain of the exact etiology of this. It has slowly drifted down. The patient's guaiac has not been obtained, in spite of the patient's numerous bowel movements. Will continue to hold her Eliquis. Patient has been transfused Feraheme as well as 1 unit of packed red blood cells. The goal is to keep her hemoglobin above 9, given her underlying cardiac disease. The patient also was quite symptomatic when it was 7.3. DISPOSITION: The patient is a DO NOT RESUSCITATE/DO NOT INTUBATE, given the patient's express desire for a natural . Pending patient's symptomatology and diagnostic findings, will reevaluate in the a.m. Time spent on this followup, including assessment, plan, physical examination, patient education, review of records, family meeting and specialty collaboration is 35 minutes. DICTATING PHYSICIAN: NORRIS MANTILLA NP [id number] PHY#: [id number] ID: [id number] JOB#: [id number] ACCT: [id number] cc: >
[2017-10-28] MEDS ORDERED: GUAIFENESIN 600 MG TABLET.SA PO ONE (16:00)
[2017-10-28] MEDS: ROPINIROLE HCL 1 MG TABLET PO SCH (22:43)
[2017-10-28] MEDS: GUAIFENESIN 600 MG TABLET.SA PO SCH (22:43)
[2017-10-28] MEDS: MONTELUKAST SODIUM 10 MG TABLET PO SCH (22:44)
[2017-10-28] MEDS: SIMVASTATIN 10 MG TABLET PO SCH (22:44)
[2017-10-29 05:27] LABS: HEMATOCRIT 26.5 % (36.0-47.0); HEMOGLOBIN 8.4 g/dL (12.0-15.5); MEAN CORPUSCULAR HEMOGLOBIN 22.6 pg (27.0-33.4); MEAN CORPUSCULAR HGB CONC 31.6 g/dL (32.0-36.0); MEAN CORPUSCULAR VOLUME 72 fl (80-97); PLATELET COUNT 171 10^3/uL (150-450); RED CELL DISTRIBUTION WIDTH 32.7 % (11.5-14.0); WHITE BLOOD COUNT 4.3 10^3/uL (4.0-10.5)
[2017-10-29 05:53] LABS: ANION GAP 9 (5-19); BLOOD UREA NITROGEN 24 mg/dL (7-20); CARBON DIOXIDE 29 mmol/L (22-30); CHLORIDE 98 mmol/L (98-107); GLUCOSE 81 mg/dL (75-110); MAGNESIUM 1.6 mg/dL (1.6-2.3); POTASSIUM 4.5 mmol/L (3.6-5.0); SODIUM 135.9 mmol/L (137-145)
[2017-10-29] MEDS: METOPROLOL TARTRATE 50 MG TABLET PO SCH ×3 (06:45→21:04)
[2017-10-29] MEDS: LEVOTHYROXINE SODIUM 0.05 MG TABLET PO SCH (06:45)
--- NOTE | 2017-10-29 07:54 | PDOC PROGRESS REPORT ---
Subjective Progress Note for:: 10/29/17 Subjective:: Pt was going to be d/c'd yesterday but did not feel well, is going down for CXR today. Ordered 1 more dose IV iron. Reason For Visit: PNEUMONIA Physical Exam Vital Signs: Temp Pulse Resp BP Pulse Ox 97.2 F 71 16 105/45 L 97 10/29/17 05:06 10/29/17 05:06 10/29/17 05:06 10/29/17 05:06 10/29/17 05:06 Intake & Output 10/28/17 10/29/17 10/30/17 06:59 06:59 06:59 Intake Total 750 508 Output Total 1400 1000 Balance -650 -492 Weight 85.7 kg 80.6 kg General appearance: PRESENT: no acute distress, well-developed, well-nourished Head exam: PRESENT: atraumatic, normocephalic Eye exam: PRESENT: conjunctiva pink, EOMI, PERRLA. ABSENT: scleral icterus Ear exam: PRESENT: normal external ear exam Mouth exam: PRESENT: moist, tongue midline Neck exam: ABSENT: carotid bruit, JVD, lymphadenopathy, thyromegaly Respiratory exam: PRESENT: clear to auscultation rosana. ABSENT: rales, rhonchi, wheezes Cardiovascular exam: PRESENT: RRR. ABSENT: diastolic murmur, rubs, systolic murmur Pulses: PRESENT: normal dorsalis pedis pul Vascular exam: PRESENT: normal capillary refill GI/Abdominal exam: PRESENT: normal bowel sounds, soft. ABSENT: distended, guarding, mass, organolmegaly, rebound, tenderness Rectal exam: PRESENT: deferred Extremities exam: PRESENT: full ROM. ABSENT: calf tenderness, clubbing, pedal edema Neurological exam: PRESENT: alert, awake, oriented to person, oriented to place , oriented to time, oriented to situation, CN II-XII grossly intact. ABSENT: motor sensory deficit Psychiatric exam: PRESENT: appropriate affect, normal mood. ABSENT: homicidal ideation, suicidal ideation Skin exam: PRESENT: dry, intact, warm. ABSENT: cyanosis, rash Results Laboratory Results: 10/29/17 04:40 10/29/17 04:40 10/29/17 10/29/17 04:40 04:40 WBC 4.3 RBC 3.70 L Hgb 8.4 L Hct 26.5 L MCV 72 L MCH 22.6 L MCHC 31.6 L RDW 32.7 H Plt Count 171 Sodium 135.9 L Potassium 4.5 Chloride 98 Carbon Dioxide 29 Anion Gap 9 BUN 24 H Creatinine 0.82 Est GFR ( Amer) > 60 Est GFR (Non-Af Amer) > 60 Glucose 81 Calcium 9.0 Magnesium 1.6 10/24/17 10/24/17 10/24/17 17:30 17:30 23:20 Creatine Kinase 22 L < 20 L CK-MB (CK-2) 1.01 Troponin I < 0.012 NT-Pro-B Natriuret Pep 10/24/17 10/25/17 10/25/17 23:20 05:28 05:28 Creatine Kinase < 20 L CK-MB (CK-2) 0.74 0.85 Troponin I < 0.012 < 0.012 NT-Pro-B Natriuret Pep 10/29/17 04:40 Creatine Kinase CK-MB (CK-2) Troponin I NT-Pro-B Natriuret Pep 9280 H Impressions: Chest X-Ray 10/23/17 14:28 IMPRESSION: NO ACUTE RADIOGRAPHIC FINDING IN THE CHEST. Chest/Abdomen CTA 10/23/17 16:38 IMPRESSION: No pulmonary emboli. Atelectasis or atelectatic infiltrate right lower lung zone. Small right pleural effusion. Large hiatal hernia. Assessment & Plan - Diagnosis (1) Anemia Qualifiers: Anemia type: iron deficiency Iron deficiency anemia type: other iron deficiency Qualified Code(s): D50.8 - Other iron deficiency anemias Is this a current diagnosis for this admission?: Yes Plan: 1 more dose IV iron today, will con't to monitor, will put pt in for f/u in our office in 2 weeks. If pt deemed to need rehab placement (PT working w/ pt today) , then will see pt in 3-4 weeks - Time Time Spent with patient: 25-34 minutes
[2017-10-29] MEDS ORDERED: MAGNESIUM OXIDE 400 MG TABLET PO ONE (08:00)
--- NOTE | 2017-10-29 08:47 | RADIOLOGY REPORT (SQ) ---
EXAM DESCRIPTION: CHEST PA/LAT COMPLETED DATE/TIME: 10/29/2017 8:13 am REASON FOR STUDY: FU PNA vs CHF COMPARISON: 10/23/2017. EXAM PARAMETERS: NUMBER OF VIEWS: two views TECHNIQUE: Digital Frontal and Lateral radiographic views of the chest acquired. RADIATION DOSE: NA LIMITATIONS: none FINDINGS: LUNGS AND PLEURA: Faint density in the right lung base. Left lung base difficult to fully evaluate due to overlying cardiac silhouette and hiatal hernia. MEDIASTINUM AND HILAR STRUCTURES: No masses or contour abnormalities. HEART AND VASCULAR STRUCTURES: Heart normal size. No evidence for failure. BONES: No acute findings. HARDWARE: Spinal electrodes. OTHER: Hiatal hernia. IMPRESSION: FAINT RIGHT BASILAR ATELECTASIS VERSUS MINIMAL INFILTRATE. LEFT LUNG BASE DIFFICULT TO EVALUATE. TECHNICAL DOCUMENTATION: JOB ID: [id number] [employer]- All Rights Reserved
[2017-10-29] MEDS ORDERED: FERUMOXYTOL (NON-ESRD) 510 MG/NS 100 ML IV ONE ×2 (10:00)
[2017-10-29] MEDS: AZITHROMYCIN 250 MG TABLET PO SCH (10:08)
[2017-10-29] MEDS: GUAIFENESIN 600 MG TABLET.SA PO SCH ×2 (10:08→21:05)
[2017-10-29] MEDS: PROMETHAZINE HCL 25 MG TABLET PO PRN ×2 (10:08→21:04)
[2017-10-29] MEDS: MIDODRINE HCL 5 MG TABLET PO SCH ×3 (10:08→18:22)
[2017-10-29] MEDS: CEFUROXIME 500 MG TABLET PO SCH ×2 (10:09→21:05)
[2017-10-29] MEDS: POTASSIUM CHLORIDE 10 MEQ TABLET.SA PO SCH (10:09)
[2017-10-29] MEDS: FUROSEMIDE 40 MG TABLET PO SCH (10:09)
[2017-10-29] MEDS: HYDROCODONE/ACETAMINOPHEN 10-325 MG TABLET PO PRN ×2 (10:09→21:04)
--- NOTE | 2017-10-29 10:55 | PDOC PROGRESS REPORT ---
Subjective Progress Note for:: 10/29/17 Subjective:: The patient is an 87-year-old female admitted with a left lower lobe pneumonia, presumably community-acquired. The patient has developed acute hypoxic respiratory failure due to the pneumonia. During this hospitalization she developed acute on chronic diastolic congestive heart failure complicated by atrial fibrillation with rapid ventricular response. Diuresis led to acute renal failure. The patient has opioid dependency and hypothyroidism. During this hospitalization she has been found to be iron deficient. She has been receiving IV iron. Over the last couple of days she has developed diarrhea. This morning she has no specific complaints. She did work with physical therapy. She actually stood 2 and walked 10 steps. She is still extremely tired but she feels that she is slowly improving. Reason For Visit: PNEUMONIA Physical Exam Vital Signs: Temp Pulse Resp BP Pulse Ox 98.2 F 73 18 94/50 L 100 10/29/17 07:23 10/29/17 07:23 10/29/17 07:23 10/29/17 07:23 10/29/17 07:23 Intake & Output 10/28/17 10/29/17 10/30/17 06:59 06:59 06:59 Intake Total 750 518 Output Total 1400 1000 Balance -650 -482 Weight 85.7 kg 80.6 kg Additional comments: The patient appears to be younger than her stated age. She does not appear to be in any distress. She is receiving nasal cannula at 4 L. Her respiratory rate is normal. Her facial appearance is unremarkable. Her lungs are clear to auscultation bilaterally. Her cardiac exam appears to be regular and I do not appreciate any murmurs, gallops or rubs. The patient's abdomen is soft, flat and benign. Bowel sounds are present. She does not have guarding or rebound noted and there are no hernias or masses present. Patient is noted to have 1-2 + lower extremity edema. This is symmetrical. She has some mild erythema of both of her legs. Results Laboratory Results: 10/29/17 04:40 10/29/17 04:40 10/29/17 10/29/17 04:40 04:40 WBC 4.3 RBC 3.70 L Hgb 8.4 L Hct 26.5 L MCV 72 L MCH 22.6 L MCHC 31.6 L RDW 32.7 H Plt Count 171 Sodium 135.9 L Potassium 4.5 Chloride 98 Carbon Dioxide 29 Anion Gap 9 BUN 24 H Creatinine 0.82 Est GFR ( Amer) > 60 Est GFR (Non-Af Amer) > 60 Glucose 81 Calcium 9.0 Magnesium 1.6 10/24/17 10/24/17 10/24/17 17:30 17:30 23:20 Creatine Kinase 22 L < 20 L CK-MB (CK-2) 1.01 Troponin I < 0.012 NT-Pro-B Natriuret Pep 10/24/17 10/25/17 10/25/17 23:20 05:28 05:28 Creatine Kinase < 20 L CK-MB (CK-2) 0.74 0.85 Troponin I < 0.012 < 0.012 NT-Pro-B Natriuret Pep 10/29/17 04:40 Creatine Kinase CK-MB (CK-2) Troponin I NT-Pro-B Natriuret Pep 9280 H Impressions: Chest/Abdomen CTA 10/23/17 16:38 IMPRESSION: No pulmonary emboli. Atelectasis or atelectatic infiltrate right lower lung zone. Small right pleural effusion. Large hiatal hernia. Chest X-Ray 10/29/17 06:00 IMPRESSION: FAINT RIGHT BASILAR ATELECTASIS VERSUS MINIMAL INFILTRATE. LEFT LUNG BASE DIFFICULT TO EVALUATE. Assessment & Plan - Diagnosis (1) Community acquired pneumonia Is this a current diagnosis for this admission?: Yes (2) Atrial fibrillation with rapid ventricular response Is this a current diagnosis for this admission?: Yes (3) Acute renal failure Is this a current diagnosis for this admission?: Yes (4) Acute respiratory failure with hypoxia Is this a current diagnosis for this admission?: Yes (5) Acute on chronic diastolic (congestive) heart failure Is this a current diagnosis for this admission?: Yes (6) Opioid dependence Is this a current diagnosis for this admission?: Yes (7) Hypothyroidism Is this a current diagnosis for this admission?: Yes (8) Iron deficiency anemia Is this a current diagnosis for this admission?: Yes (9) Diarrhea Is this a current diagnosis for this admission?: Yes (10) Hypomagnesemia Is this a current diagnosis for this admission?: Yes - Time Time Spent with patient: 25-34 minutes - Inpatient Certification Medical Necessity: Significant Comorbidiites Make Outpatient Treatment Too Risky , Need Close Monitoring Due to Risk of Patient Decompensation, Need For Continuous Telemetry Monitoring, Risk of Complication if Not Cared For in Hospital, Risk of Diagnosis Which Will Require Inpatient Eval/Care/Monitoring - Plan Summary Plan Summary: The patient continues on therapy for community-acquired pneumonia. She is still receiving 4 L of oxygen in regards to her hypoxic respiratory failure which is likely secondary to components of the pneumonia and acute on chronic diastolic congestive heart failure aggravated by her underlying anemia. She is now receiving metoprolol for rate control. Eliquis is on hold. The patient has been receiving intravenous iron for iron deficiency anemia. Hematology is following. Cardiology is following for atrial fibrillation. Due to the diarrhea I will send off C. difficile testing. I am also repleting the patient' s borderline low magnesium level. She will continue to receive supplementation for hypothyroidism. I will discuss disposition with patient. I anticipate she might require [facility]p facility.
[2017-10-29] MEDS: MAGNESIUM OXIDE 400 MG TABLET PO SCH (18:21)
--- NOTE | 2017-10-29 18:47 | PDOC PROGRESS REPORT ---
Subjective Progress Note for:: 10/29/17 Subjective:: Patient seems to be doing better with gradual improvement. Pt is denying any chest arm or neck discomfort. Patient denying any PND, orthopnea. Patient denied any sustained palpitations, dizziness, syncope, near syncope. Patient denying any fever chills. Patient denying any other significant discomfort. Patient is maintaining sinus rhythm. Patient however noted to have an episode of paroxysmal atrial tachycardia/atrial fibrillation yesterday. Review of systems: Rest review of systems negative. Medications: Medications have been reviewed. Reason For Visit: PNEUMONIA Physical Exam Vital Signs: Temp Pulse Resp BP Pulse Ox 98.3 F 71 16 123/55 L 99 10/29/17 16:59 10/29/17 16:59 10/29/17 16:59 10/29/17 16:59 10/29/17 16:59 Intake & Output 10/28/17 10/29/17 10/30/17 06:59 06:59 06:59 Intake Total 750 518 650 Output Total 1400 1000 400 Balance -650 -482 250 Weight 85.7 kg 80.6 kg Exam: GENERAL: well-nourished and in no acute distress. Alert and oriented x3 HEAD: Atraumatic, normocephalic. EYES: Pupils equal round and reactive to light, extraocular movements intact, sclera anicteric, conjunctiva are normal. ENT: TMs normal, nares patent, oropharynx clear without exudates. Moist mucous membranes. No oral ulcerations or bleeding gums noted NECK: supple without lymphadenopathy. Trachea is central. No cervical or axillary lymphadenopathy noted. Carotids are 2+, JVD WNL LUNGS: Respiration seems nonlabored, no significant accessory muscle action noted. Breath sounds clear to auscultation bilaterally and equal noted. No wheezes rales or rhonchi noted. No significant dullness noted on percussion. CHEST: Palpation of the chest wall shows no significant chest wall tenderness. No other significant abnormalities noted. HEART: [place], No PSH, 1/6 JACINTO aortic area, 1/6 aguirre systolic murmur mitral area, no rubs, no gallops. ABDOMEN: Soft, no significant tenderness appreciated, normoactive bowel sounds. No guarding, no rebound. No rigidity noted . No masses appreciated. EXTREMITIES: Pedal pulses are 1-2+, no calf tenderness noted. No clubbing or cyanosis.1+ pedal edema noted NEUROLOGICAL: Focused neurological exam showed no significant neurologic deficit. Normal speech, no focal weakness appreciated. PSYCH: Normal mood, normal affect. Judgment and insight within normal limits. SKIN: No significant ecchymosis, rash, ulcerations or signs of pruritus noted. MUSCULOSKELETAL EXAM: No significant joint swelling noted. Results Laboratory Results: 10/29/17 04:40 10/29/17 04:40 10/29/17 10/29/17 04:40 04:40 WBC 4.3 RBC 3.70 L Hgb 8.4 L Hct 26.5 L MCV 72 L MCH 22.6 L MCHC 31.6 L RDW 32.7 H Plt Count 171 Sodium 135.9 L Potassium 4.5 Chloride 98 Carbon Dioxide 29 Anion Gap 9 BUN 24 H Creatinine 0.82 Est GFR ( Amer) > 60 Est GFR (Non-Af Amer) > 60 Glucose 81 Calcium 9.0 Magnesium 1.6 10/24/17 10/24/17 10/24/17 17:30 17:30 23:20 Creatine Kinase 22 L < 20 L CK-MB (CK-2) 1.01 Troponin I < 0.012 NT-Pro-B Natriuret Pep 10/24/17 10/25/17 10/25/17 23:20 05:28 05:28 Creatine Kinase < 20 L CK-MB (CK-2) 0.74 0.85 Troponin I < 0.012 < 0.012 NT-Pro-B Natriuret Pep 10/29/17 04:40 Creatine Kinase CK-MB (CK-2) Troponin I NT-Pro-B Natriuret Pep 9280 H EKG Comments: Telemetry strips shows patient maintaining sinus rhythm. Impressions: Chest/Abdomen CTA 10/23/17 16:38 IMPRESSION: No pulmonary emboli. Atelectasis or atelectatic infiltrate right lower lung zone. Small right pleural effusion. Large hiatal hernia. Chest X-Ray 10/29/17 06:00 IMPRESSION: FAINT RIGHT BASILAR ATELECTASIS VERSUS MINIMAL INFILTRATE. LEFT LUNG BASE DIFFICULT TO EVALUATE. Assessment & Plan - Diagnosis (1) Atrial fibrillation Qualifiers: Atrial fibrillation type: paroxysmal Qualified Code(s): I48.0 - Paroxysmal atrial fibrillation Is this a current diagnosis for this admission?: Yes (2) Anemia Qualifiers: Anemia type: iron deficiency Iron deficiency anemia type: other iron deficiency Qualified Code(s): D50.8 - Other iron deficiency anemias Is this a current diagnosis for this admission?: Yes (3) Diastolic heart failure Qualifiers: Heart failure chronicity: acute on chronic Qualified Code(s): I50.33 - Acute on chronic diastolic (congestive) heart failure Is this a current diagnosis for this admission?: Yes (4) Hyperlipidemia Qualifiers: Hyperlipidemia type: unspecified Qualified Code(s): E78.5 - Hyperlipidemia , unspecified Is this a current diagnosis for this admission?: Yes (5) Hypotension Qualifiers: Hypotension type: unspecified hypotension type Qualified Code(s): I95.9 - Hypotension, unspecified Is this a current diagnosis for this admission?: Yes (6) Debility Is this a current diagnosis for this admission?: Yes - Notes Notes: Hemoglobin has improved. Patient noted to receive IV iron therapy. Complains of general debility.. Atrial fibrillation: Paroxysmal. Currently on rate controlled with beta- antonia. Recommend switching to metoprolol succinate for smoother action. Patient also on Eliquis. May consider reducing Eliquis dose to 2.5 mg p.o. twice daily in view of her advanced age and mild reduction of GFR. However Eliquis is on hold right now pending ruling out acute bleeding. Hypotension: Patient currently on Midodrin therapy. Continue with it. May add digoxin at low-dose for rate control if needed. Diastolic heart failure: Acute on chronic, most likely precipitated by anemia. Currently patient undergoing iron therapy. [employer] is involved in the care. Hyperlipidemia: Currently on simvastatin therapy. General debility: Patient will benefit from physical therapy, correction of anemia etc. 2D echo from this hospitalization reviewed showed normal LVEF with some diastolic dysfunction. No other medication changes performed. - Time Time with patient: 15-25 minutes - CODE STATUS : was discussed, patient remains DO NOT RESUSCITATE. Surrogate decision-maker unchanged. Multiple medical problems were addressed. More than 50% of the time spent coordinating care, discussing management plans with involved caregivers. Management plans discussed with involved personnels. Medical decision making was of moderate to high complexity, patient's has multiple comorbidities. Medications reviewed and adjusted accordingly: Yes
[2017-10-29] MEDS: LEVALBUTEROL HCL NEB 1.25 MG/3 ML AMPUL NEB PRN (19:24)
[2017-10-29] MEDS: SIMVASTATIN 10 MG TABLET PO SCH (21:04)
[2017-10-29] MEDS: ROPINIROLE HCL 1 MG TABLET PO SCH (21:05)
[2017-10-29] MEDS: MONTELUKAST SODIUM 10 MG TABLET PO SCH (21:05)
[2017-10-30 05:01] LABS: HEMATOCRIT 26.4 % (36.0-47.0); HEMOGLOBIN 8.4 g/dL (12.0-15.5); MEAN CORPUSCULAR HEMOGLOBIN 22.4 pg (27.0-33.4); MEAN CORPUSCULAR HGB CONC 31.9 g/dL (32.0-36.0); MEAN CORPUSCULAR VOLUME 70 fl (80-97); PLATELET COUNT 173 10^3/uL (150-450); RED BLOOD COUNT 3.75 10^6/uL (3.72-5.28); RED CELL DISTRIBUTION WIDTH 32.1 % (11.5-14.0); WHITE BLOOD COUNT 3.8 10^3/uL (4.0-10.5)
[2017-10-30 05:10] LABS: ANION GAP 7 (5-19); BLOOD UREA NITROGEN 26 mg/dL (7-20); CALCIUM 9.1 mg/dL (8.4-10.2); CARBON DIOXIDE 31 mmol/L (22-30); CHLORIDE 98 mmol/L (98-107); GLUCOSE 76 mg/dL (75-110); MAGNESIUM 1.7 mg/dL (1.6-2.3); POTASSIUM 4.7 mmol/L (3.6-5.0); SODIUM 136.1 mmol/L (137-145)
[2017-10-30] MEDS: LEVOTHYROXINE SODIUM 0.05 MG TABLET PO SCH (05:46)
[2017-10-30] MEDS: METOPROLOL TARTRATE 50 MG TABLET PO SCH ×3 (05:46→21:18)
[2017-10-30 05:54] LABS: ABSOLUTE LYMPHOCYTES# (MANUAL) 0.9 10^3/uL (0.5-4.7); ABSOLUTE MONOCYTES # (MANUAL) 0.4 10^3/uL (0.1-1.4); ABSOLUTE NEUTROPHILS# (MANUAL) 2.3 10^3/uL (1.7-8.2); BASOPHILS % (MANUAL) 0 % (0-2); EOSINOPHILS % (MANUAL) 4 % (0-6); LYMPHOCYTES % (MANUAL) 24 % (13-45); MONOCYTES % (MANUAL) 11 % (3-13); SEGMENTED NEUTROPHILS % (MAN) 61 % (42-78); TOTAL CELLS COUNTED 100
[2017-10-30 05:56] LABS: ANISOCYTOSIS 4+
[2017-10-30 05:57] LABS: HYPOCHROMASIA 1+; POIKILOCYTOSIS 4+
[2017-10-30 05:58] LABS: OVALOCYTES 2+; SCHISTOCYTES 3+
[2017-10-30 05:59] LABS: HELMET CELLS SLIGHT; TEAR DROP CELLS 2+
[2017-10-30 06:00] LABS: PLATELET COMMENT ADEQUATE; PLATELET LARGE PRESENT
--- NOTE | 2017-10-30 07:44 | PDOC PROGRESS REPORT ---
Subjective Progress Note for:: 10/30/17 Subjective:: No acute events overnight Reason For Visit: PNEUMONIA Physical Exam Vital Signs: Temp Pulse Resp BP Pulse Ox 98.1 F 73 18 117/55 L 96 10/30/17 05:29 10/30/17 05:29 10/30/17 05:29 10/30/17 05:29 10/30/17 05:29 Intake & Output 10/29/17 10/30/17 10/31/17 06:59 06:59 06:59 Intake Total 518 805 Output Total 1000 400 Balance -482 405 Weight 80.6 kg 85.3 kg General appearance: PRESENT: no acute distress, well-developed, well-nourished Head exam: PRESENT: atraumatic, normocephalic Eye exam: PRESENT: conjunctiva pink, EOMI, PERRLA. ABSENT: scleral icterus Ear exam: PRESENT: normal external ear exam Mouth exam: PRESENT: moist, tongue midline Neck exam: ABSENT: carotid bruit, JVD, lymphadenopathy, thyromegaly Respiratory exam: PRESENT: clear to auscultation rosana. ABSENT: rales, rhonchi, wheezes Cardiovascular exam: PRESENT: RRR. ABSENT: diastolic murmur, rubs, systolic murmur Pulses: PRESENT: normal dorsalis pedis pul Vascular exam: PRESENT: normal capillary refill GI/Abdominal exam: PRESENT: normal bowel sounds, soft. ABSENT: distended, guarding, mass, organolmegaly, rebound, tenderness Rectal exam: PRESENT: deferred Extremities exam: PRESENT: full ROM. ABSENT: calf tenderness, clubbing, pedal edema Neurological exam: PRESENT: alert, awake, oriented to person, oriented to place , oriented to time, oriented to situation, CN II-XII grossly intact. ABSENT: motor sensory deficit Psychiatric exam: PRESENT: appropriate affect, normal mood. ABSENT: homicidal ideation, suicidal ideation Skin exam: PRESENT: dry, intact, warm. ABSENT: cyanosis, rash Results Laboratory Results: 10/30/17 04:19 10/30/17 04:19 10/30/17 10/30/17 04:19 04:19 WBC 3.8 L RBC 3.75 Hgb 8.4 L Hct 26.4 L MCV 70 L MCH 22.4 L MCHC 31.9 L RDW 32.1 H Plt Count 173 Seg Neutrophils % Not Reportable Lymphocytes % Not Reportable Monocytes % Not Reportable Eosinophils % Not Reportable Basophils % Not Reportable Absolute Neutrophils Not Reportable Absolute Lymphocytes Not Reportable Absolute Monocytes Not Reportable Absolute Eosinophils Not Reportable Absolute Basophils Not Reportable Sodium 136.1 L Potassium 4.7 Chloride 98 Carbon Dioxide 31 H Anion Gap 7 BUN 26 H Creatinine 0.82 Est GFR ( Amer) > 60 Est GFR (Non-Af Amer) > 60 Glucose 76 Calcium 9.1 Magnesium 1.7 10/24/17 10/24/17 10/24/17 17:30 17:30 23:20 Creatine Kinase 22 L < 20 L CK-MB (CK-2) 1.01 Troponin I < 0.012 NT-Pro-B Natriuret Pep 10/24/17 10/25/17 10/25/17 23:20 05:28 05:28 Creatine Kinase < 20 L CK-MB (CK-2) 0.74 0.85 Troponin I < 0.012 < 0.012 NT-Pro-B Natriuret Pep 10/29/17 04:40 Creatine Kinase CK-MB (CK-2) Troponin I NT-Pro-B Natriuret Pep 9280 H Impressions: Chest/Abdomen CTA 10/23/17 16:38 IMPRESSION: No pulmonary emboli. Atelectasis or atelectatic infiltrate right lower lung zone. Small right pleural effusion. Large hiatal hernia. Chest X-Ray 10/29/17 06:00 IMPRESSION: FAINT RIGHT BASILAR ATELECTASIS VERSUS MINIMAL INFILTRATE. LEFT LUNG BASE DIFFICULT TO EVALUATE. Assessment & Plan - Diagnosis (1) Anemia Qualifiers: Anemia type: iron deficiency Iron deficiency anemia type: other iron deficiency Qualified Code(s): D50.8 - Other iron deficiency anemias Is this a current diagnosis for this admission?: Yes Plan: S/p full repletion w/ IV iron, hb still 8 range, probably will improve over time. If pt continues to improve functionally then no need for further transfusion but if still symptomatic, may benefit from 1 more unit of blood. Will discuss w/ pt and family. - Time Time Spent with patient: 25-34 minutes
[2017-10-30] MEDS ORDERED: APIXABAN 2.5 MG TABLET PO SCH ×2 (08:30→10:00)
--- NOTE | 2017-10-30 08:39 | PDOC PROGRESS REPORT ---
Subjective Progress Note for:: 10/30/17 Subjective:: Patient states to feel better. She denies any shortness of breath. She still complains of being weak and not able to walk too far. She is usually only about 20 step walking at home because of her severe back pain and scoliosis she is practically wheelchair bound. Safia discussed the rehab. Should patient is agreeable to go to [facility] to improve her strength. Reason For Visit: PNEUMONIA Physical Exam Vital Signs: Temp Pulse Resp BP Pulse Ox 98.1 F 73 18 117/55 L 96 10/30/17 05:29 10/30/17 05:29 10/30/17 05:29 10/30/17 05:29 10/30/17 05:29 Intake & Output 10/29/17 10/30/17 10/31/17 06:59 06:59 06:59 Intake Total 518 805 Output Total 1000 400 Balance -482 405 Weight 80.6 kg 85.3 kg General appearance: PRESENT: mild distress Head exam: PRESENT: atraumatic Eye exam: PRESENT: conjunctiva pink Neck exam: PRESENT: carotid bruit. ABSENT: JVD Respiratory exam: PRESENT: crackles Cardiovascular exam: PRESENT: irregular rhythm, +S1, +S2 Murmur grade: 2 GI/Abdominal exam: PRESENT: normal bowel sounds, soft Extremities exam: PRESENT: pedal edema, tenderness Musculoskeletal exam: PRESENT: tenderness Neurological exam: PRESENT: alert, awake Results Laboratory Results: 10/30/17 04:19 10/30/17 04:19 10/30/17 10/30/17 04:19 04:19 WBC 3.8 L RBC 3.75 Hgb 8.4 L Hct 26.4 L MCV 70 L MCH 22.4 L MCHC 31.9 L RDW 32.1 H Plt Count 173 Seg Neutrophils % Not Reportable Lymphocytes % Not Reportable Monocytes % Not Reportable Eosinophils % Not Reportable Basophils % Not Reportable Absolute Neutrophils Not Reportable Absolute Lymphocytes Not Reportable Absolute Monocytes Not Reportable Absolute Eosinophils Not Reportable Absolute Basophils Not Reportable Sodium 136.1 L Potassium 4.7 Chloride 98 Carbon Dioxide 31 H Anion Gap 7 BUN 26 H Creatinine 0.82 Est GFR ( Amer) > 60 Est GFR (Non-Af Amer) > 60 Glucose 76 Calcium 9.1 Magnesium 1.7 10/24/17 10/24/17 10/24/17 17:30 17:30 23:20 Creatine Kinase 22 L < 20 L CK-MB (CK-2) 1.01 Troponin I < 0.012 NT-Pro-B Natriuret Pep 10/24/17 10/25/17 10/25/17 23:20 05:28 05:28 Creatine Kinase < 20 L CK-MB (CK-2) 0.74 0.85 Troponin I < 0.012 < 0.012 NT-Pro-B Natriuret Pep 10/29/17 04:40 Creatine Kinase CK-MB (CK-2) Troponin I NT-Pro-B Natriuret Pep 9280 H Impressions: Chest/Abdomen CTA 10/23/17 16:38 IMPRESSION: No pulmonary emboli. Atelectasis or atelectatic infiltrate right lower lung zone. Small right pleural effusion. Large hiatal hernia. Chest X-Ray 10/29/17 06:00 IMPRESSION: FAINT RIGHT BASILAR ATELECTASIS VERSUS MINIMAL INFILTRATE. LEFT LUNG BASE DIFFICULT TO EVALUATE. Assessment & Plan - Diagnosis (1) Acute on chronic diastolic (congestive) heart failure Is this a current diagnosis for this admission?: Yes (2) Acute renal failure Qualifiers: Acute renal failure type: unspecified Qualified Code(s): N17.9 - Acute kidney failure, unspecified Is this a current diagnosis for this admission?: Yes Plan: Most probably related to diuretics. We will continue with diuretics since the symptoms are stable (3) Acute respiratory failure with hypoxia Is this a current diagnosis for this admission?: Yes Plan: Improved with diuresis and readjustment in medications (4) Anemia Qualifiers: Anemia type: iron deficiency Iron deficiency anemia type: other iron deficiency Qualified Code(s): D50.8 - Other iron deficiency anemias Is this a current diagnosis for this admission?: Yes Plan: H&H is stable we will continue with just iron and avoid transfusions (5) Atrial fibrillation Qualifiers: Atrial fibrillation type: paroxysmal Qualified Code(s): I48.0 - Paroxysmal atrial fibrillation Is this a current diagnosis for this admission?: Yes (6) Debility Is this a current diagnosis for this admission?: Yes Plan: Because of lower back pain and severe scoliosis the patient is not very active or able to ambulate far. She has lost some of her strength since hospitalization and I think the rehab at the care home with PT and OT would benefit her greatly (7) Iron deficiency anemia Is this a current diagnosis for this admission?: Yes Plan: Continue current treatment (8) Opioid dependence Is this a current diagnosis for this admission?: Yes Plan: Continue current treatment as prescribed by pain management
[2017-10-30] MEDS: POTASSIUM CHLORIDE 10 MEQ TABLET.SA PO SCH (10:55)
[2017-10-30] MEDS: CEFUROXIME 500 MG TABLET PO SCH ×2 (10:55→21:18)
[2017-10-30] MEDS: MAGNESIUM OXIDE 400 MG TABLET PO SCH ×2 (10:57→17:09)
[2017-10-30] MEDS: FUROSEMIDE 40 MG TABLET PO SCH (10:57)
[2017-10-30] MEDS: GUAIFENESIN 600 MG TABLET.SA PO SCH ×2 (11:00→21:18)
[2017-10-30] MEDS: HYDROCODONE/ACETAMINOPHEN 10-325 MG TABLET PO PRN ×2 (11:02→18:48)
[2017-10-30] MEDS: PROMETHAZINE HCL 25 MG TABLET PO PRN ×2 (11:04→18:48)
--- NOTE | 2017-10-30 14:52 | PDOC PROGRESS REPORT ---
Subjective Progress Note for:: 10/30/17 Subjective:: Patient seems to be doing better with gradual improvement. Patient however has marked debilitation and is waiting to be discharged to a rehab unit. Pt is denying any chest arm or neck discomfort. Patient denying any PND, orthopnea. Patient denied any sustained palpitations, dizziness, syncope, near syncope. Patient denying any fever chills. Patient denying any other significant discomfort. Patient is maintaining sinus rhythm. Telemetry strips were reviewed. Patient was noted to have very transient PAT/A. fib. Review of systems: Rest review of systems negative. Medications: Medications have been reviewed. Reason For Visit: PNEUMONIA Physical Exam Vital Signs: Temp Pulse Resp BP Pulse Ox 98.4 F 85 18 95/52 L 91 L 10/30/17 12:43 10/30/17 12:43 10/30/17 12:43 10/30/17 12:43 10/30/17 12:43 Intake & Output 10/29/17 10/30/17 10/31/17 06:59 06:59 06:59 Intake Total 518 805 Output Total 1000 400 Balance -482 405 Weight 80.6 kg 85.3 kg Exam: GENERAL: well-nourished and in no acute distress. Alert and oriented x3 HEAD: Atraumatic, normocephalic. EYES: Pupils equal round and reactive to light, extraocular movements intact, sclera anicteric, conjunctiva are normal. ENT: TMs normal, nares patent, oropharynx clear without exudates. Moist mucous membranes. No oral ulcerations or bleeding gums noted NECK: supple without lymphadenopathy. Trachea is central. No cervical or axillary lymphadenopathy noted. Carotids are 2+, JVD WNL LUNGS: Respiration seems nonlabored, no significant accessory muscle action noted. Breath sounds clear to auscultation bilaterally and equal noted. No wheezes rales or rhonchi noted. No significant dullness noted on percussion. CHEST: Palpation of the chest wall shows no significant chest wall tenderness. No other significant abnormalities noted. HEART: [place] [employer], No PSH, 1/6 JACINTO aortic area, 1/6 aguirre systolic murmur mitral area, no rubs, no gallops. ABDOMEN: Soft, no significant tenderness appreciated, normoactive bowel sounds. No guarding, no rebound. No rigidity noted . No masses appreciated. EXTREMITIES: Pedal pulses are 1-2+, no calf tenderness noted. No clubbing or cyanosis.trace to 1+ pedal edema noted NEUROLOGICAL: Focused neurological exam showed no significant neurologic deficit. Normal speech, no focal weakness appreciated. PSYCH: Normal mood, normal affect. Judgment and insight within normal limits. SKIN: No significant ecchymosis, rash, ulcerations or signs of pruritus noted. MUSCULOSKELETAL EXAM: No significant joint swelling noted. Results Laboratory Results: 10/30/17 04:19 10/30/17 04:19 10/30/17 10/30/17 04:19 04:19 WBC 3.8 L RBC 3.75 Hgb 8.4 L Hct 26.4 L MCV 70 L MCH 22.4 L MCHC 31.9 L RDW 32.1 H Plt Count 173 Seg Neutrophils % Not Reportable Lymphocytes % Not Reportable Monocytes % Not Reportable Eosinophils % Not Reportable Basophils % Not Reportable Absolute Neutrophils Not Reportable Absolute Lymphocytes Not Reportable Absolute Monocytes Not Reportable Absolute Eosinophils Not Reportable Absolute Basophils Not Reportable Sodium 136.1 L Potassium 4.7 Chloride 98 Carbon Dioxide 31 H Anion Gap 7 BUN 26 H Creatinine 0.82 Est GFR ( Amer) > 60 Est GFR (Non-Af Amer) > 60 Glucose 76 Calcium 9.1 Magnesium 1.7 10/24/17 10/24/17 10/24/17 17:30 17:30 23:20 Creatine Kinase 22 L < 20 L CK-MB (CK-2) 1.01 Troponin I < 0.012 NT-Pro-B Natriuret Pep 10/24/17 10/25/17 10/25/17 23:20 05:28 05:28 Creatine Kinase < 20 L CK-MB (CK-2) 0.74 0.85 Troponin I < 0.012 < 0.012 NT-Pro-B Natriuret Pep 10/29/17 04:40 Creatine Kinase CK-MB (CK-2) Troponin I NT-Pro-B Natriuret Pep 9280 H EKG Comments: Shows sinus rhythm without any sustained tacky or bradycardia arrhythmias. Impressions: Chest/Abdomen CTA 10/23/17 16:38 IMPRESSION: No pulmonary emboli. Atelectasis or atelectatic infiltrate right lower lung zone. Small right pleural effusion. Large hiatal hernia. Chest X-Ray 10/29/17 06:00 IMPRESSION: FAINT RIGHT BASILAR ATELECTASIS VERSUS MINIMAL INFILTRATE. LEFT LUNG BASE DIFFICULT TO EVALUATE. Assessment & Plan - Diagnosis (1) Atrial fibrillation Qualifiers: Atrial fibrillation type: paroxysmal Qualified Code(s): I48.0 - Paroxysmal atrial fibrillation Is this a current diagnosis for this admission?: Yes (2) Anemia Qualifiers: Anemia type: iron deficiency Iron deficiency anemia type: other iron deficiency Qualified Code(s): D50.8 - Other iron deficiency anemias Is this a current diagnosis for this admission?: Yes (3) Diastolic heart failure Qualifiers: Heart failure chronicity: acute on chronic Qualified Code(s): I50.33 - Acute on chronic diastolic (congestive) heart failure Is this a current diagnosis for this admission?: Yes (4) Hyperlipidemia Qualifiers: Hyperlipidemia type: unspecified Qualified Code(s): E78.5 - Hyperlipidemia , unspecified Is this a current diagnosis for this admission?: Yes (5) Hypotension Qualifiers: Hypotension type: unspecified hypotension type Qualified Code(s): I95.9 - Hypotension, unspecified Is this a current diagnosis for this admission?: Yes (6) Debility Is this a current diagnosis for this admission?: Yes - Notes Notes: Chronic anticoagulation stopped for 2 weeks before reassessing and reinstitution. Stopped Midodrin unless blood pressure drops below 90 mmHg. Atrial fibrillation: Paroxysmal. Currently on rate controlled with beta- antonia. Recommend switching to metoprolol succinate for smoother action. She is sent about continuing chronic anticoagulation is somewhat complicated. Patient has marked general debility and has tendency to fall, also patient's A. fib burden is somewhat on the low side. Chads score is probably 2, has bled score high. Also there has been dropping hemoglobin to the point of needing blood transfusion. After discussion with patient and Isiah Mustafa MD which was decided to hold off on chronic anticoagulation for about 2 weeks before reassessing the situation. I believe Eliquis at 2.5 mg p.o. twice daily could be restarted at that point if patient hemoglobin remained stable. Hypotension: This has resolved. Blood pressure has been stable for last several days. Will hold Midrin and use it only on as needed basis for any subsequent hypotensive episodes. Diastolic heart failure: Acute on chronic, most likely precipitated by anemia. Currently patient undergoing iron therapy. Patient seems compensated in this regard. Hyperlipidemia: Currently on simvastatin therapy. General debility: Patient will benefit from physical therapy, patient being transferred to a rehab facility. 2D echo from this hospitalization reviewed showed normal LVEF with some diastolic dysfunction. Chronic anticoagulation stopped for 2 weeks before reassessing and reinstitution. Stopped Midodrin unless blood pressure drops below 90 mmHg.. - Time Time with patient: 15-25 minutes - CODE STATUS was discussed, patient remains full code. Surrogate decision-maker unchanged. Multiple medical problems were addressed. More than 50% of the time spent coordinating care, discussing management plans with involved caregivers. Management plans discussed with involved personnels. Medical decision making was of moderate to high complexity , patient's has multiple comorbidities. Medications reviewed and adjusted accordingly: Yes
[2017-10-30] MEDS: FENTANYL 25 MCG/HR PATCH.TD72 TD SCH (17:10)
[2017-10-30] MEDS: SIMVASTATIN 10 MG TABLET PO SCH (21:18)
[2017-10-30] MEDS: MONTELUKAST SODIUM 10 MG TABLET PO SCH (21:18)
[2017-10-30] MEDS: ROPINIROLE HCL 1 MG TABLET PO SCH (21:18)
[2017-10-31 04:47] LABS: ABSOLUTE BASOPHILS # (AUTO) 0.1 10^3/uL (0.0-0.2); ABSOLUTE EOSINOPHILS # (AUTO) 0.2 10^3/uL (0.0-0.6); ABSOLUTE LYMPHOCYTES (AUTO) 0.7 10^3/uL (0.5-4.7); ABSOLUTE MONOCYTES (AUTO) 0.5 10^3/uL (0.1-1.4); ABSOLUTE NEUT (AUTO) 3.2 10^3/uL (1.7-8.2); BASOPHILS % (AUTO) 2.2 % (0-2); EOSINOPHILS % (AUTO) 3.9 % (0-6); HEMATOCRIT 27.1 % (36.0-47.0); HEMOGLOBIN 8.6 g/dL (12.0-15.5); LYMPHOCYTES % (AUTO) 14.3 % (13-45); MEAN CORPUSCULAR HEMOGLOBIN 22.4 pg (27.0-33.4); MEAN CORPUSCULAR HGB CONC 31.8 g/dL (32.0-36.0); MEAN CORPUSCULAR VOLUME 71 fl (80-97); MONOCYTES % (AUTO) 11.4 % (3-13); PLATELET COUNT 165 10^3/uL (150-450); RED BLOOD COUNT 3.84 10^6/uL (3.72-5.28); SEGMENTED NEUTROPHILS % (AUTO) 68.2 % (42-78); TOTAL CELLS COUNTED % (AUTO) 100 %; WHITE BLOOD COUNT 4.7 10^3/uL (4.0-10.5)
[2017-10-31 05:00] LABS: ANION GAP 6 (5-19); BLOOD UREA NITROGEN 24 mg/dL (7-20); CALCIUM 9.3 mg/dL (8.4-10.2); CARBON DIOXIDE 32 mmol/L (22-30); CHLORIDE 96 mmol/L (98-107); GLUCOSE 87 mg/dL (75-110); MAGNESIUM 1.7 mg/dL (1.6-2.3); POTASSIUM 4.8 mmol/L (3.6-5.0); SODIUM 134.4 mmol/L (137-145)
[2017-10-31] MEDS: HYDROCODONE/ACETAMINOPHEN 10-325 MG TABLET PO PRN ×2 (06:00→12:20)
[2017-10-31] MEDS: METOPROLOL TARTRATE 50 MG TABLET PO SCH (06:00)
[2017-10-31] MEDS: LEVOTHYROXINE SODIUM 0.05 MG TABLET PO SCH (06:00)
[2017-10-31] MEDS: PROMETHAZINE HCL 25 MG TABLET PO PRN ×2 (06:03→12:20)
[2017-10-31 06:18] LABS: ANISOCYTOSIS 4+; HYPOCHROMASIA 1+; POIKILOCYTOSIS 2+
[2017-10-31 06:19] LABS: OVALOCYTES SLIGHT; PLATELET COMMENT ADEQUATE; SCHISTOCYTES 4+; TEAR DROP CELLS 1+
--- NOTE | 2017-10-31 08:18 | PDOC PROGRESS REPORT ---
Subjective Progress Note for:: 10/31/17 Subjective:: No acute events overnight, care team working on rehab placement to improve weakness Reason For Visit: PNEUMONIA Physical Exam Vital Signs: Temp Pulse Resp BP Pulse Ox 97.7 F 90 17 124/62 97 10/31/17 03:31 10/31/17 06:00 10/31/17 03:31 10/31/17 06:00 10/31/17 03:31 Intake & Output 10/30/17 10/31/17 11/01/17 06:59 06:59 06:59 Intake Total 805 787 Output Total 400 1450 Balance 405 -663 Weight 85.3 kg 83.3 kg General appearance: PRESENT: no acute distress, well-developed, well-nourished Head exam: PRESENT: atraumatic, normocephalic Eye exam: PRESENT: conjunctiva pink, EOMI, PERRLA. ABSENT: scleral icterus Ear exam: PRESENT: normal external ear exam Mouth exam: PRESENT: moist, tongue midline Neck exam: ABSENT: carotid bruit, JVD, lymphadenopathy, thyromegaly Respiratory exam: PRESENT: clear to auscultation rosana. ABSENT: rales, rhonchi, wheezes Cardiovascular exam: PRESENT: RRR. ABSENT: diastolic murmur, rubs, systolic murmur Pulses: PRESENT: normal dorsalis pedis pul Vascular exam: PRESENT: normal capillary refill GI/Abdominal exam: PRESENT: normal bowel sounds, soft. ABSENT: distended, guarding, mass, organolmegaly, rebound, tenderness Rectal exam: PRESENT: deferred Extremities exam: PRESENT: full ROM. ABSENT: calf tenderness, clubbing, pedal edema Neurological exam: PRESENT: alert, awake, oriented to person, oriented to place , oriented to time, oriented to situation, CN II-XII grossly intact. ABSENT: motor sensory deficit Psychiatric exam: PRESENT: appropriate affect, normal mood. ABSENT: homicidal ideation, suicidal ideation Skin exam: PRESENT: dry, intact, warm. ABSENT: cyanosis, rash Results Laboratory Results: 10/31/17 04:25 10/31/17 04:25 10/31/17 10/31/17 04:25 04:25 WBC 4.7 RBC 3.84 Hgb 8.6 L Hct 27.1 L MCV 71 L MCH 22.4 L MCHC 31.8 L RDW 32.0 H Plt Count 165 Seg Neutrophils % 68.2 Lymphocytes % 14.3 Monocytes % 11.4 Eosinophils % 3.9 Basophils % 2.2 H Absolute Neutrophils 3.2 Absolute Lymphocytes 0.7 Absolute Monocytes 0.5 Absolute Eosinophils 0.2 Absolute Basophils 0.1 Sodium 134.4 L Potassium 4.8 Chloride 96 L Carbon Dioxide 32 H Anion Gap 6 BUN 24 H Creatinine 0.76 Est GFR ( Amer) > 60 Est GFR (Non-Af Amer) > 60 Glucose 87 Calcium 9.3 Magnesium 1.7 10/24/17 10/24/17 10/24/17 17:30 17:30 23:20 Creatine Kinase 22 L < 20 L CK-MB (CK-2) 1.01 Troponin I < 0.012 NT-Pro-B Natriuret Pep 10/24/17 10/25/17 10/25/17 23:20 05:28 05:28 Creatine Kinase < 20 L CK-MB (CK-2) 0.74 0.85 Troponin I < 0.012 < 0.012 NT-Pro-B Natriuret Pep 10/29/17 04:40 Creatine Kinase CK-MB (CK-2) Troponin I NT-Pro-B Natriuret Pep 9280 H Impressions: Chest/Abdomen CTA 10/23/17 16:38 IMPRESSION: No pulmonary emboli. Atelectasis or atelectatic infiltrate right lower lung zone. Small right pleural effusion. Large hiatal hernia. Chest X-Ray 10/29/17 06:00 IMPRESSION: FAINT RIGHT BASILAR ATELECTASIS VERSUS MINIMAL INFILTRATE. LEFT LUNG BASE DIFFICULT TO EVALUATE. Assessment & Plan - Diagnosis (1) Anemia Qualifiers: Anemia type: iron deficiency Iron deficiency anemia type: other iron deficiency Qualified Code(s): D50.8 - Other iron deficiency anemias Is this a current diagnosis for this admission?: Yes Plan: Hb stable, no further transfusion planned, anemia should improved over next few weeks, f/u as outpt, will sign off, thanks for the opportunity to assist in this patient's care.
[2017-10-31] MEDS ORDERED: METOPROLOL SUCCINATE 50 MG TAB.SR.24H PO SCH (10:00)
[2017-10-31] MEDS: POTASSIUM CHLORIDE 10 MEQ TABLET.SA PO SCH (10:53)
[2017-10-31] MEDS: CEFUROXIME 500 MG TABLET PO SCH (10:54)
[2017-10-31] MEDS: GUAIFENESIN 600 MG TABLET.SA PO SCH (10:54)
[2017-10-31] MEDS: MAGNESIUM OXIDE 400 MG TABLET PO SCH (10:55)
[2017-10-31] MEDS: FUROSEMIDE 40 MG TABLET PO SCH (10:55)
--- NOTE | 2017-10-31 12:54 | PDOC DISCHARGE SUMMARY ---
General - Admit/Disc Date/PCP Admission Date/Primary Care Provider: 10/23/17 19:52 NORRIS NEAL, Discharge Date: 10/31/17 - Discharge Diagnosis (1) Acute on chronic diastolic (congestive) heart failure Is this a current diagnosis for this admission?: Yes Summary: The patient was treated aggressively with diuretics and adjustment in medications. She has been placed on oxygen (2) Acute renal failure Is this a current diagnosis for this admission?: Yes (3) Acute respiratory failure with hypoxia Is this a current diagnosis for this admission?: Yes Summary: Because of combination of both congestive heart failure and severe kyphoscoliosis the patient will require supplemental oxygen to keep the O2 saturation above 90% (4) Anemia Is this a current diagnosis for this admission?: Yes Summary: The anemia appears to be stable and according to the hematology the patient would need to recheck her labs in about 3 weeks. She has received transfusion and iron infusions (5) Atrial fibrillation Is this a current diagnosis for this admission?: Yes Summary: Most probably cause for congestive heart failure rate well controlled at present time. Case discussed with cardiology and a decision has been made to hold her Eliquis and repeat the CBC in 2 weeks (6) Debility Is this a current diagnosis for this admission?: Yes Summary: The patient will need physical therapy because of recent hospitalization and being significantly debilitated. She is usually not very active and possibly walks only about 20 steps and is mainly spending her time in a motorized wheelchair because of severe arthritis and severe scoliosis. She is presently being managed by pain management who is controlling her fentanyl and short acting hydrocodone (7) Iron deficiency anemia Is this a current diagnosis for this admission?: Yes (8) Opioid dependence Is this a current diagnosis for this admission?: Yes Summary: Continue with the same medicines as prescribed by the pain management - Additional Information Resuscitation Status: Do Not Resuscitate Discharge Diet: Cardiac Discharge Activity: Activity As Tolerated, Balance Activity w/Rest Home Medications: Ergocalciferol (Vitamin D2) [Drisdol 50,000 unit (1.25MG) Capsule] 50,000 unit PO LOPES@1000 10/24/17 Fentanyl [Duragesic 25 mcg/hr Transdermal Patch] 1 patch TOP Q3D 10/24/17 Furosemide [Lasix 40 mg Tablet] 40 mg PO DAILY 10/24/17 Hydrocodone Bit/Acetaminophen [Hydrocodon-Acetaminophn 10-325] 1 tab PO Q6HP PRN 10/24/17 Levothyroxine Sodium [Synthroid 0.05 mg Tablet] 0.05 mg PO Q6AM 10/24/17 Metoprolol Tartrate [Lopressor 50 mg Tablet] 50 mg PO Q8 10/24/17 Potassium Chloride [Klor-Con Sprinkle] 10 meq PO [id number] 10/24/17 Promethazine HCl [Phenergan 25 mg Tablet] 25 mg PO TIDHS 10/24/17 Ropinirole HCl [Requip] 1 mg PO QHS 10/24/17 Simvastatin [Zocor 20 mg Tablet] 20 mg PO QHS 10/24/17 Cefuroxime Axetil [Ceftin 500 mg Tablet] 500 mg PO Q12 #5 tablet 10/31/17 Metoprolol Succinate [Toprol Xl 50 mg Tab.sr] 50 mg PO DAILY tab.sr.24h History of Present Illness History of Present Illness: MIGUEL CHEATHAM is a 87 year old female Hospital Course Hospital Course: The patient was admitted directly from the office with hypoxemia. She was found to be in congestive heart failure. There was a questionable diagnosis of pneumonia she has been treated with antibiotics. Her O2 saturation has improved. Her leg swelling has improved with diuretics. She was seen by cardiology and medications have been readjusted. Physical Exam Vital Signs: Temp Pulse Resp BP Pulse Ox 97.8 F 77 19 104/50 L 95 10/31/17 08:15 10/31/17 11:04 10/31/17 11:04 10/31/17 08:15 10/31/17 11:04 Intake & Output 10/30/17 10/31/17 11/01/17 06:59 06:59 06:59 Intake Total 805 787 Output Total 400 1450 Balance 405 -663 Weight 85.3 kg 83.3 kg General appearance: PRESENT: no acute distress Head exam: PRESENT: atraumatic Eye exam: PRESENT: conjunctiva pink Neck exam: PRESENT: carotid bruit. ABSENT: JVD Respiratory exam: PRESENT: crackles Cardiovascular exam: PRESENT: irregular rhythm, +S1, +S2 Murmur grade: 2 Pulses: PRESENT: +1 pedal pulses bilateral GI/Abdominal exam: PRESENT: soft Extremities exam: PRESENT: tenderness Musculoskeletal exam: PRESENT: tenderness Neurological exam: PRESENT: alert, awake Results Laboratory Results: 10/31/17 04:25 10/31/17 04:25 10/31/17 10/31/17 04:25 04:25 WBC 4.7 RBC 3.84 Hgb 8.6 L Hct 27.1 L MCV 71 L MCH 22.4 L MCHC 31.8 L RDW 32.0 H Plt Count 165 Seg Neutrophils % 68.2 Lymphocytes % 14.3 Monocytes % 11.4 Eosinophils % 3.9 Basophils % 2.2 H Absolute Neutrophils 3.2 Absolute Lymphocytes 0.7 Absolute Monocytes 0.5 Absolute Eosinophils 0.2 Absolute Basophils 0.1 Sodium 134.4 L Potassium 4.8 Chloride 96 L Carbon Dioxide 32 H Anion Gap 6 BUN 24 H Creatinine 0.76 Est GFR ( Amer) > 60 Est GFR (Non-Af Amer) > 60 Glucose 87 Calcium 9.3 Magnesium 1.7 10/24/17 10/24/17 10/24/17 17:30 17:30 23:20 Creatine Kinase 22 L < 20 L CK-MB (CK-2) 1.01 Troponin I < 0.012 NT-Pro-B Natriuret Pep 10/24/17 10/25/17 10/25/17 23:20 05:28 05:28 Creatine Kinase < 20 L CK-MB (CK-2) 0.74 0.85 Troponin I < 0.012 < 0.012 NT-Pro-B Natriuret Pep 10/29/17 04:40 Creatine Kinase CK-MB (CK-2) Troponin I NT-Pro-B Natriuret Pep 9280 H Impressions: Chest/Abdomen CTA 10/23/17 16:38 IMPRESSION: No pulmonary emboli. Atelectasis or atelectatic infiltrate right lower lung zone. Small right pleural effusion. Large hiatal hernia. Chest X-Ray 10/29/17 06:00 IMPRESSION: FAINT RIGHT BASILAR ATELECTASIS VERSUS MINIMAL INFILTRATE. LEFT LUNG BASE DIFFICULT TO EVALUATE.
[2017-10-31 13:49] VITALS: BP 112/49
--- NOTE | 2017-10-31 19:23 | PDOC PROGRESS REPORT ---
Subjective Progress Note for:: 10/31/17 Subjective:: Patient was seen in the morning prior to discharge. Discussed chronic anticoagulation risk benefit in detail with patient's and her daughter. Patient does have high has bled score. Chads score probably just too. Discussed that in her case, we could hold Eliquis and then restart it after further evaluation in about 2 weeks making sure that she is not actively bleeding. Pt is denying any chest arm or neck discomfort. Patient denying any PND, orthopnea. Patient denied any sustained palpitations, dizziness, syncope, near syncope. Patient denying any fever chills. Patient denying any other significant discomfort. Patient is maintaining sinus rhythm. Telemetry strips were reviewed. Patient was noted to have very transient PAT/A. fib. Review of systems: Rest review of systems negative. Medications: Medications have been reviewed. Reason For Visit: PNEUMONIA Physical Exam Vital Signs: Temp Pulse Resp BP Pulse Ox 98.1 F 83 18 112/49 L 98 10/31/17 12:31 10/31/17 14:00 10/31/17 12:31 10/31/17 12:31 10/31/17 12:31 Intake & Output 10/30/17 10/31/17 11/01/17 06:59 06:59 06:59 Intake Total 805 787 Output Total 400 1450 Balance 405 -663 Weight 85.3 kg 83.3 kg Exam: GENERAL: well-nourished and in no acute distress. Alert and oriented x3 HEAD: Atraumatic, normocephalic. EYES: Pupils equal round and reactive to light, extraocular movements intact, sclera anicteric, conjunctiva are normal. ENT: TMs normal, nares patent, oropharynx clear without exudates. Moist mucous membranes. No oral ulcerations or bleeding gums noted NECK: supple without lymphadenopathy. Trachea is central. No cervical or axillary lymphadenopathy noted. Carotids are 2+, JVD WNL LUNGS: Respiration seems nonlabored, no significant accessory muscle action noted. Breath sounds clear to auscultation bilaterally and equal noted. No wheezes rales or rhonchi noted. No significant dullness noted on percussion. CHEST: Palpation of the chest wall shows no significant chest wall tenderness. No other significant abnormalities noted. HEART: [place] [employer], No PSH, 1/6 JACINTO aortic area, 1/6 aguirre systolic murmur mitral area, no rubs, no gallops. ABDOMEN: Soft, no significant tenderness appreciated, normoactive bowel sounds. No guarding, no rebound. No rigidity noted . No masses appreciated. EXTREMITIES: Pedal pulses are 1-2+, no calf tenderness noted. No clubbing or cyanosis.trace to 1+ pedal edema noted NEUROLOGICAL: Focused neurological exam showed no significant neurologic deficit. Normal speech, no focal weakness appreciated. PSYCH: Normal mood, normal affect. Judgment and insight within normal limits. SKIN: No significant ecchymosis, rash, ulcerations or signs of pruritus noted. MUSCULOSKELETAL EXAM: No significant joint swelling noted. Results Laboratory Results: 10/31/17 04:25 10/31/17 04:25 10/31/17 10/31/17 04:25 04:25 WBC 4.7 RBC 3.84 Hgb 8.6 L Hct 27.1 L MCV 71 L MCH 22.4 L MCHC 31.8 L RDW 32.0 H Plt Count 165 Seg Neutrophils % 68.2 Lymphocytes % 14.3 Monocytes % 11.4 Eosinophils % 3.9 Basophils % 2.2 H Absolute Neutrophils 3.2 Absolute Lymphocytes 0.7 Absolute Monocytes 0.5 Absolute Eosinophils 0.2 Absolute Basophils 0.1 Sodium 134.4 L Potassium 4.8 Chloride 96 L Carbon Dioxide 32 H Anion Gap 6 BUN 24 H Creatinine 0.76 Est GFR ( Amer) > 60 Est GFR (Non-Af Amer) > 60 Glucose 87 Calcium 9.3 Magnesium 1.7 10/24/17 10/24/17 10/24/17 17:30 17:30 23:20 Creatine Kinase 22 L < 20 L CK-MB (CK-2) 1.01 Troponin I < 0.012 NT-Pro-B Natriuret Pep 10/24/17 10/25/17 10/25/17 23:20 05:28 05:28 Creatine Kinase < 20 L CK-MB (CK-2) 0.74 0.85 Troponin I < 0.012 < 0.012 NT-Pro-B Natriuret Pep 10/29/17 04:40 Creatine Kinase CK-MB (CK-2) Troponin I NT-Pro-B Natriuret Pep 9280 H Impressions: Chest/Abdomen CTA 10/23/17 16:38 IMPRESSION: No pulmonary emboli. Atelectasis or atelectatic infiltrate right lower lung zone. Small right pleural effusion. Large hiatal hernia. Chest X-Ray 10/29/17 06:00 IMPRESSION: FAINT RIGHT BASILAR ATELECTASIS VERSUS MINIMAL INFILTRATE. LEFT LUNG BASE DIFFICULT TO EVALUATE. Assessment & Plan - Diagnosis (1) Atrial fibrillation Qualifiers: Atrial fibrillation type: paroxysmal Qualified Code(s): I48.0 - Paroxysmal atrial fibrillation Is this a current diagnosis for this admission?: Yes (2) Anemia Qualifiers: Anemia type: iron deficiency Iron deficiency anemia type: other iron deficiency Qualified Code(s): D50.8 - Other iron deficiency anemias Is this a current diagnosis for this admission?: Yes (3) Diastolic heart failure Qualifiers: Heart failure chronicity: acute on chronic Qualified Code(s): I50.33 - Acute on chronic diastolic (congestive) heart failure Is this a current diagnosis for this admission?: Yes (4) Hyperlipidemia Qualifiers: Hyperlipidemia type: unspecified Qualified Code(s): E78.5 - Hyperlipidemia , unspecified Is this a current diagnosis for this admission?: Yes (5) Hypotension Qualifiers: Hypotension type: unspecified hypotension type Qualified Code(s): I95.9 - Hypotension, unspecified Is this a current diagnosis for this admission?: Yes (6) Debility Is this a current diagnosis for this admission?: Yes - Notes Notes: Patient is quite debilitated therefore is being discharged to a rehab facility. Currently patient seems stable as regards anemia. As regards CHF she is compensated. BNP level is half of what it was on admission therefore adequate management of CHF has been carried out during this hospitalization. Patient has tolerated stopping of Midrin. As regards other medications, patient should continue with it. As noted in HPI, Eliquis is on hold. Should patient hemoglobin remained stable after about 2 weeks, could consider restarting it at 2.5 mg. P.o. twice a day. - Time Time with patient: 15-25 minutes - CODE STATUS : was discussed, patient remains DO NOT RESUSCITATE. Surrogate decision-maker unchanged. Multiple medical problems were addressed. More than 50% of the time spent coordinating care, discussing management plans with involved caregivers. Management plans discussed with involved personnels. Medical decision making was of moderate to high complexity, patient's has multiple comorbidities. Medications reviewed and adjusted accordingly: Yes
== END 2017-10-31 17:00 | DRG 291 ==
LOC: ER 14:13 → EH 19:52 → 4N 10-24 13:45 → 3N 10-26 16:59
PROVIDERS: ADMIT Pediatrics; ATTEND Pediatrics
PROC: 3E0F73Z Introduction of Anti-inflammatory into Respiratory Tract, Via Natural or Artificial Opening (ICD-10-PCS; 2017-10-23)
PROC: 30233N1 Transfusion of Nonautologous Red Blood Cells into Peripheral Vein, Percutaneous Approach (ICD-10-PCS; principal; 2017-10-26)
DX: I50.33 Acute on chronic diastolic (congestive) heart failure (principal); J18.9 Pneumonia, unspecified organism; J96.01 Acute respiratory failure with hypoxia; N17.9 Acute kidney failure, unspecified; N39.0 Urinary tract infection, site not specified; K21.9 Gastro-esophageal reflux disease without esophagitis; M19.90 Unspecified osteoarthritis, unspecified site; E03.9 Hypothyroidism, unspecified; E78.5 Hyperlipidemia, unspecified; I48.0 Paroxysmal atrial fibrillation; M81.0 Age-related osteoporosis without current pathological fracture; Z99.3 Dependence on wheelchair; R74.0 Nonspecific elevation of levels of transaminase and lactic acid dehydrogenase [LDH]; I95.9 Hypotension, unspecified; D50.9 Iron deficiency anemia, unspecified; E83.42 Hypomagnesemia; R19.7 Diarrhea, unspecified; M41.9 Scoliosis, unspecified; T50.1X5A Adverse effect of loop [high-ceiling] diuretics, initial encounter; G89.29 Other chronic pain; Z66 Do not resuscitate; B96.20 Unspecified Escherichia coli [E. coli] as the cause of diseases classified elsewhere; Z79.891 Long term (current) use of opiate analgesic; Z79.02 Long term (current) use of antithrombotics/antiplatelets; Z87.891 Personal history of nicotine dependence
CPT/HCPCS: 36415; 36430; 71045; 71046; 71275; 80048; 80053; 80076; 81001; 82550; 82553; 82607; 82728; 82746; 82803; 83540; 83550; 83605; 83735; 83880; 84466; 84484; 85025; 85027; 85045; 85610; 86850; 86900; 86901; 86920; 87040; 87086; 87088; 87186; 87804; 93005; 93010; 93306; 94640; 94667; 94668; 94799; 96374; 99285; G8978-GP; G8979-GP; J0456; J0696; J1650; J1940; J2405; J3490; J7060; P9016; Q0138

== ENCOUNTER 2018-01-17 15:25 | Inpatient (IN) | payer MEDICARE, BC ==
--- NOTE | 2018-01-17 15:47 | ER Document Report ---
ED General - General Chief Complaint: Shortness Of Breath Stated Complaint: DIFFICULTY BREATHING Time Seen by Provider: 01/17/18 15:35 Notes: The patient is an 87-year-old female, past medical history oxygen dependence on home 6 L oxygen, anemia, A. fib, arthritis, osteoporosis, scoliosis, chronic pain, presents from Dr. Neal's office after she was found to be hypoxic and hypotensive. She came with her daughter, who is a former [facility] physical therapy aide, who provides most of the history. Patient's oxygen on her home 6 L was in the 70's earlier this week and patient is looking more pale over the past 4 days. She is also having increased peripheral edema. TRAVEL OUTSIDE OF THE [place] IN LAST 30 DAYS: No - Related Data Allergies/Adverse Reactions: No Known Allergies Allergy (Verified 01/17/18 15:36) Past Medical History - General Information source: Patient - Social History Smoking Status: Unknown if Ever Smoked Family History: CAD, Malignancy - Past Medical History Cardiac Medical History: Reports: Hx Atrial Fibrillation, Hx Congestive Heart Failure - Diastolic grade 2 Pulmonary Medical History: Reports: Hx Respiratory Failure Denies: Hx Asthma, Hx COPD Endocrine Medical History: Reports: Hx Hypothyroidism Renal/ Medical History: Denies: Hx Peritoneal Dialysis Musculoskeltal Medical History: Reports Hx Arthritis Past Surgical History: Reports: Hx Orthopedic Surgery, Hx Tonsillectomy, Other - Spinal cord stimulator insertion, ladder suspension cataract surgery, - Immunizations Hx Diphtheria, Pertussis, Tetanus Vaccination: No Review of Systems - Review of Systems Notes: REVIEW OF SYSTEMS: CONSTITUTIONAL: -fevers, -chills EENT: -eye pain, -difficulty swallowing, -nasal congestion CARDIOVASCULAR: -chest pain, -syncope. RESPIRATORY: -cough, -SOB GASTROINTESTINAL: -abdominal pain, -nausea, -vomiting, -diarrhea GENITOURINARY: -dysuria, -hematuria MUSCULOSKELETAL: -back pain, -neck pain SKIN: -rash or skin lesions. HEMATOLOGIC: -easy bruising or bleeding. LYMPHATIC: -swollen, enlarged glands. NEUROLOGICAL: -altered mental status or loss of consciousness, -headache, - neurologic symptoms PSYCHIATRIC: -anxiety, -depression. ALL OTHER SYSTEMS REVIEWED AND NEGATIVE. Physical Exam - Vital signs Vitals: Resp BP Pulse Ox 30 H 112/51 L 100 01/17/18 15:36 01/17/18 15:36 01/17/18 15:36 - Notes Notes: PHYSICAL EXAMINATION: GENERAL: Well-appearing, well-nourished and in no acute distress. HEAD: Atraumatic, normocephalic. EYES: Pupils equal round and reactive to light, extraocular movements intact, sclera anicteric, conjunctiva are normal. ENT: nares patent, oropharynx clear without exudates. Moist mucous membranes. NECK: Normal range of motion, supple without lymphadenopathy LUNGS: No increased work of breathing. Lungs CTAB. HEART: Regular rate and rhythm without murmurs ABDOMEN: Soft, nontender, normoactive bowel sounds. No guarding, no rebound. No masses appreciated. EXTREMITIES: 3+ pitting edema up to knees and bilateral lower extremities. NEUROLOGICAL: Cranial nerves grossly intact. Normal speech. Normal sensory and motor exams. PSYCH: Normal mood, normal affect. SKIN: Pale skin, cool. Course - Re-evaluation Re-evalutation: Patient arrives hypotensive, pale and short of breath, which improved with 8 L nasal cannula. On her home 6 L nasal cannula, she remains satting >93%. Patient is not having any chest pain and EKG does not show a STEMI. It does show some inverted T waves in the anterior lateral leads. Patient was recently taken off Eliquis due to her recurrent anemia. Her hemoglobin is 6.2 here and she is not having active bleeding. Provided with 1 unit of PRBCs. Patient also had elevated lactate on arrival 4.2, which improved with gentle hydration due to her tenuous heart failure status. No signs of infection. Patient's first troponin is 0.323 and second troponin is 0.438. She remains without chest pain. Suspect this may be a demand ischemia. Spoke about goals of care with patient and daughter (who is the POA) and they agree with intubation if needed, but will be DNR. They also would not like to be transferred for a heart cath, even after understanding and verbalizing the risks and benefits. 01/17/18 21:22 Spoke to her car stereo installer, Dr. Cadena, and he agrees that patient can stay at [facility] and he will consult. Pt's PMD is Dr. Neal. 01/17/18 22:[address] Brumfield (Hospitalist) and he has accepted to the patient to Tele. - Vital Signs Vital signs: Temp Pulse Resp BP Pulse Ox 97.9 F 75 17 100/50 L 97 01/17/18 21:01 01/17/18 19:10 01/17/18 21:01 01/17/18 21:01 01/17/18 21:01 - Laboratory Result Diagrams: 01/17/18 15:47 01/17/18 15:47 Laboratory results interpreted by me: 01/17/18 01/17/18 01/17/18 15:36 15:47 15:47 RBC 2.51 L Hgb 6.2 L Hct 19.5 L MCV 78 L MCH 24.7 L MCHC 31.7 L RDW 43.9 H PT Sodium Chloride BUN Est GFR ( Amer) Est GFR (Non-Af Amer) Glucose Lactic Acid 4.2 H Calcium Total Bilirubin Direct Bilirubin AST Creatine Kinase NT-Pro-B Natriuret Pep 45696 H Total Protein Urine Blood Crossmatch 01/17/18 01/17/18 01/17/18 15:47 15:47 15:47 RBC Hgb Hct MCV MCH MCHC RDW PT 18.8 H Sodium 135.7 L Chloride 95 L BUN 45 H Est GFR ( Amer) 52 L Est GFR (Non-Af Amer) 43 L Glucose 200 H Lactic Acid Calcium 8.3 L Total Bilirubin 1.6 H Direct Bilirubin 0.6 H AST 40 H Creatine Kinase < 20 L NT-Pro-B Natriuret Pep Total Protein 6.0 L Urine Blood Crossmatch See Detail 01/17/18 01/17/18 16:20 20:05 RBC Hgb Hct MCV MCH MCHC RDW PT Sodium Chloride BUN Est GFR ( Amer) Est GFR (Non-Af Amer) Glucose Lactic Acid 2.4 H Calcium Total Bilirubin Direct Bilirubin AST Creatine Kinase NT-Pro-B Natriuret Pep Total Protein Urine Blood LARGE H Crossmatch - Diagnostic Test Radiology reviewed: Image reviewed, Reports reviewed Radiology results interpreted by me: CXR: retrocardiac hiatal hernia, NAD - EKG Interpretation by Me EKG shows normal: Sinus rhythm, [place], Intervals, QRS Complexes Rate: Normal Additional EKG results interpreted by me: Inverted T-waves in anterolateral leads Discharge - Discharge Clinical Impression: Anemia Qualifiers: Anemia type: other cause Other causes of anemia: other cause, not classified Qualified Code(s): D64.89 - Other specified anemias Dyspnea Qualifiers: Dyspnea type: unspecified Qualified Code(s): R06.00 - Dyspnea, unspecified Hypotension Qualifiers: Hypotension type: unspecified hypotension type Qualified Code(s): I95.9 - Hypotension, unspecified Condition: Stable Disposition: ADMITTED INPATIENT Admitting Provider: Hospitalist [facility] Admitted: Telemetry Referrals: NORRIS NEAL MD [Primary Care Provider] - Follow up as needed
[2018-01-17 16:04] LABS: VENOUS BLOOD BASE EXCESS -0.8 mmol/L; VENOUS BLOOD HCO3 25.5 mmol/L (20-32); VENOUS BLOOD PCO2 51.5 mmHg (35-63); VENOUS BLOOD PH 7.31 (7.30-7.42)
[2018-01-17 16:12] LABS: HEMATOCRIT 19.5 % (36.0-47.0); MEAN CORPUSCULAR HEMOGLOBIN 24.7 pg (27.0-33.4); MEAN CORPUSCULAR HGB CONC 31.7 g/dL (32.0-36.0); MEAN CORPUSCULAR VOLUME 78 fl (80-97); PLATELET COUNT 233 10^3/uL (150-450); RED BLOOD COUNT 2.51 10^6/uL (3.72-5.28); WHITE BLOOD COUNT 5.6 10^3/uL (4.0-10.5)
[2018-01-17 16:21] LABS: ALANINE AMINOTRANSFERASE 42 U/L (9-52); ALBUMIN 3.7 g/dL (3.5-5.0); ALKALINE PHOSPHATASE 62 U/L (38-126); ANION GAP 15 (5-19); ASPARTATE AMINO TRANSFERASE 40 U/L (14-36); BILIRUBIN,DIRECT 0.6 mg/dL (0.0-0.4); BILIRUBIN,TOTAL 1.6 mg/dL (0.2-1.3); BLOOD UREA NITROGEN 45 mg/dL (7-20); CALCIUM 8.3 mg/dL (8.4-10.2); CARBON DIOXIDE 26 mmol/L (22-30); CHLORIDE 95 mmol/L (98-107); GLUCOSE 200 mg/dL (75-110); LIPASE 72.2 U/L (23-300); POTASSIUM 4.6 mmol/L (3.6-5.0); SODIUM 135.7 mmol/L (137-145)
[2018-01-17 16:22] LABS: CREATINE KINASE < 20 U/L (30-135)
[2018-01-17] MEDS ORDERED: NORMAL SALINE 1000 ML 1,000 ML IV ONE (16:22)
[2018-01-17] MEDS ORDERED: CEFTRIAXONE INJ 1000 MG VIAL IV ONE (16:23)
[2018-01-17 16:26] LABS: PROTHROMBIN TIME 18.8 SEC (11.4-15.4)
[2018-01-17 16:27] LABS: PARTIAL THROMBOPLASTIN TIME 25.7 SEC (23.5-35.8)
[2018-01-17 16:29] LABS: RED CELL DISTRIBUTION WIDTH 43.9 % (11.5-14.0)
[2018-01-17 16:31] LABS: ABSOLUTE MONOCYTES # (MANUAL) 0.6 10^3/uL (0.1-1.4); ABSOLUTE NEUTROPHILS# (MANUAL) 3.9 10^3/uL (1.7-8.2); BASOPHILS % (MANUAL) 0 % (0-2); EOSINOPHILS % (MANUAL) 3 % (0-6); LYMPHOCYTES % (MANUAL) 17 % (13-45); MONOCYTES % (MANUAL) 11 % (3-13); SEGMENTED NEUTROPHILS % (MAN) 69 % (42-78); TOTAL CELLS COUNTED 100
--- NOTE | 2018-01-17 16:33 | RADIOLOGY REPORT (SQ) ---
EXAM DESCRIPTION: CHEST SINGLE VIEW COMPLETED DATE/TIME: 01/17/2018 4:10 pm REASON FOR STUDY: hypoxia COMPARISON: CT angio chest 10/25/2017 Chest films 10/29/2017, 10/23/2017 EXAM PARAMETERS: NUMBER OF VIEWS: One view. TECHNIQUE: Single frontal radiographic view of the chest acquired. RADIATION DOSE: NA LIMITATIONS: None. FINDINGS: LUNGS AND PLEURA: No opacities, masses or pneumothorax. No pleural effusion. MEDIASTINUM AND HILAR STRUCTURES: Large retrocardiac hiatal hernia HEART AND VASCULAR STRUCTURES: Mild cardiomegaly BONES: Osteoporotic. No acute fracture. Advanced arthritis right shoulder HARDWARE: Thoracic spine electrodes over the mid thoracic region OTHER: No other significant finding. IMPRESSION: Large retrocardiac hiatal hernia No acute infiltrates TECHNICAL DOCUMENTATION: JOB ID: [id number] [employer] All Rights Reserved Reading location - IP/workstation name: [email or web address]
[2018-01-17 16:34] LABS: ANISOCYTOSIS 4+; HYPOCHROMASIA SLIGHT; PLATELET COMMENT ADEQUATE; POIKILOCYTOSIS 2+; SCHISTOCYTES SLIGHT; TEAR DROP CELLS SLIGHT; TOXIC GRANULATION SLIGHT
[2018-01-17 16:35] LABS: TROPONIN I 0.323 ng/mL
[2018-01-17 16:38] LABS: HEMOGLOBIN 6.2 g/dL (12.0-15.5)
[2018-01-17] MEDS ORDERED: NORMAL SALINE 250 ML IV PRN (16:57)
[2018-01-17 17:11] LABS: APPEARANCE,URINE SLIGHTLY-CLOUDY; BILIRUBIN,URINE NEGATIVE (NEGATIVE); COLOR,URINE YELLOW; GLUCOSE, URINE NEGATIVE (NEGATIVE); KETONES,URINE NEGATIVE (NEGATIVE); LEUKOCYTE ESTERASE,URINE NEGATIVE (NEGATIVE); NITRITE,URINE NEGATIVE (NEGATIVE); PROTEIN,URINE NEGATIVE (NEGATIVE); URINE SPECIFIC GRAVITY 1.011; UROBILINOGEN,URINE NEGATIVE mg/dL (<2.0)
[2018-01-17 22:06] LABS: HEMATOCRIT 21.1 % (36.0-47.0); MEAN CORPUSCULAR HEMOGLOBIN 25.8 pg (27.0-33.4); MEAN CORPUSCULAR HGB CONC 32.5 g/dL (32.0-36.0); MEAN CORPUSCULAR VOLUME 79 fl (80-97); PLATELET COUNT 193 10^3/uL (150-450); RED BLOOD COUNT 2.66 10^6/uL (3.72-5.28); WHITE BLOOD COUNT 5.6 10^3/uL (4.0-10.5)
[2018-01-17 22:08] LABS: RED CELL DISTRIBUTION WIDTH 40.6 % (11.5-14.0)
[2018-01-17 22:10] LABS: HEMOGLOBIN 6.9 g/dL (12.0-15.5)
[2018-01-17 22:24] LABS: ABSOLUTE LYMPHOCYTES# (MANUAL) 1.1 10^3/uL (0.5-4.7); ABSOLUTE MONOCYTES # (MANUAL) 0.6 10^3/uL (0.1-1.4); ABSOLUTE NEUTROPHILS# (MANUAL) 3.9 10^3/uL (1.7-8.2); BASOPHILS % (MANUAL) 0 % (0-2); EOSINOPHILS % (MANUAL) 2 % (0-6); LYMPHOCYTES % (MANUAL) 19 % (13-45); MONOCYTES % (MANUAL) 10 % (3-13); SEGMENTED NEUTROPHILS % (MAN) 69 % (42-78); TOTAL CELLS COUNTED 100
[2018-01-17 22:26] LABS: ANISOCYTOSIS 4+; HYPOCHROMASIA SLIGHT; PLATELET COMMENT ADEQUATE; POIKILOCYTOSIS 2+; SCHISTOCYTES SLIGHT; TEAR DROP CELLS SLIGHT; TOXIC GRANULATION SLIGHT
[2018-01-17] MEDS ORDERED: DIGOXIN 0.125 MG TABLET PO ONE (22:45)
--- NOTE | 2018-01-17 22:46 | PDOC H&P ---
History of Present Illness Admission Date/PCP: 01/17/18 22:24 NORRIS NEAL, History of Present Illness: MIGUEL CHEATHAM is a 87 year old female patient with past medical history of hypothyroidism, osteoporosis COPD, A. fib currently of Eliquis but his heart rate is well controlled and grade 2 diastolic congestive heart failure who is referred from her primary care physician office for shortness of breath and hypotension. After baseline patient is a known case of end-stage lung disease and she has been on oxygen 24 7. The last 1 week her oxygen requirement increased and while she is on 6 L of oxygen she desaturates in the 70s. Most of the history is obtained from her daughter during my encounter. Recently also patient become more pale and developed bilateral leg swelling. Her initial blood workup shows severe anemia with hemoglobin of 6.2 and markedly elevated BNP of 22,000. Reportedly her anemia is not new it has chronic iron deficiency but the etiology is not identified and there is no report of external bleeding in the form of melena, hematochezia or hematuria. Patient has history of chronic pain pertaining to her knees and shoulder and she has also compressed vertebral fracture from severe osteoporosis so she has been on fentanyl patch and Vicodin. There is no report of chills, fever, nausea , vomiting, abdominal pain or any urinary complaints. Patient has orthopnea of 3 pillows but no PND. Past Medical History Cardiac Medical History: Reports: Atrial Fibrillation, Congestive Heart Failure - Diastolic grade 2 Pulmonary Medical History: Reports: Respiratory Failure Denies: Asthma, Chronic Obstructive Pulmonary Disease (COPD) Endocrine Medical History: Reports: Hypothyroidism Musculoskeltal Medical History: Reports: Arthritis Hematology: Denies: Anemia Past Surgical History Past Surgical History: Reports: Orthopedic Surgery, Tonsillectomy, Other - Spinal cord stimulator insertion, ladder suspension cataract surgery, Social History Smoking Status: Former Smoker Frequency of Alcohol Use: None Hx Recreational Drug Use: No Drugs: None Hx Prescription Drug Abuse: No Family History Family History: CAD, Malignancy Parental Family History Reviewed: Yes Children Family History Reviewed: Yes Sibling(s) Family History Reviewed.: Yes Medication/Allergy Home Medications: Fentanyl [Duragesic 25 mcg/hr Transdermal Patch] 1 patch TOP Q3D 10/24/17 Furosemide [Lasix 40 mg Tablet] 40 mg PO DAILY 10/24/17 Metoprolol Tartrate [Lopressor 50 mg Tablet] 50 mg PO Q8 10/24/17 Potassium Chloride [Klor-Con Sprinkle] 10 meq PO WBRKFST 10/24/17 Promethazine HCl [Phenergan 25 mg Tablet] 25 mg PO TIDP PRN 10/24/17 Dexlansoprazole [Dexilant 60 mg Capsule] 60 mg PO DAILY 01/17/18 Hydromorphone HCl [Dilaudid 2 mg Tablet] 2 mg PO Q6HP PRN 01/17/18 Allergies/Adverse Reactions: No Known Allergies Allergy (Verified 01/17/18 15:36) Review of Systems Constitutional: PRESENT: as per HPI Eyes: PRESENT: as per HPI Ears: PRESENT: as per HPI Cardiovascular: PRESENT: as per HPI Respiratory: PRESENT: as per HPI Gastrointestinal: PRESENT: as per HPI Neurological: PRESENT: as per HPI Physical Exam Vital Signs: Temp Pulse Resp BP Pulse Ox 97.9 F 75 19 93/50 L 99 01/17/18 21:01 01/17/18 19:10 01/17/18 22:00 01/17/18 22:01 01/17/18 22:01 Results Impressions: Chest X-Ray 01/17/18 15:36 IMPRESSION: Large retrocardiac hiatal hernia No acute infiltrates Assessment & Plan - Diagnosis (1) Acute on chronic diastolic (congestive) heart failure Is this a current diagnosis for this admission?: Yes Plan: Gentle diuresis, Coreg 6.5 mg twice a day, Enalapril 2.5 mg p.o. daily, Digoxin 0.125 mg p.o. daily, Bedrest, daily weight and strict input output (3) Atrial fibrillation Qualifiers: Atrial fibrillation type: paroxysmal Qualified Code(s): I48.0 - Paroxysmal atrial fibrillation Is this a current diagnosis for this admission?: Yes Plan: Rate controlled. Patient is taken off her Eliquis because of risk of bleeding. (4) Hypothyroidism Qualifiers: Hypothyroidism type: acquired Qualified Code(s): E03.9 - Hypothyroidism, unspecified Is this a current diagnosis for this admission?: Yes Plan: Continue her Synthroid and check her TSH in a.m. - Time Time Spent: 30 to 50 Minutes - Inpatient Certification Medical Necessity: Need For Continuous Telemetry Monitoring
--- NOTE | 2018-01-17 23:37 | EKG REPORT ---
SEVERITY:- ABNORMAL ECG - SINUS RHYTHM ATRIAL PREMATURE COMPLEX LOW VOLTAGE IN FRONTAL LEADS REPOL ABNRM SUGGESTS ISCHEMIA, ANT-LAT LEADS VS LVH : Confirmed by: Erica Cadena 17-Jan-2018 23:36:59
[2018-01-18] MEDS ORDERED: HEPARIN SOD (PORCINE) 5,000 UNIT/ML 1 ML SYRINGE SUBCUT SCH (06:00)
[2018-01-18 07:17] LABS: HEMATOCRIT 20.3 % (36.0-47.0); MEAN CORPUSCULAR HGB CONC 33.3 g/dL (32.0-36.0); MEAN CORPUSCULAR VOLUME 78 fl (80-97); PLATELET COUNT 202 10^3/uL (150-450); WHITE BLOOD COUNT 5.2 10^3/uL (4.0-10.5)
[2018-01-18 07:33] LABS: RED CELL DISTRIBUTION WIDTH 40.9 % (11.5-14.0)
[2018-01-18 07:34] LABS: HEMOGLOBIN 6.8 g/dL (12.0-15.5)
[2018-01-18 07:53] LABS: ABSOLUTE LYMPHOCYTES# (MANUAL) 0.5 10^3/uL (0.5-4.7); ABSOLUTE MONOCYTES # (MANUAL) 0.4 10^3/uL (0.1-1.4); ABSOLUTE NEUTROPHILS# (MANUAL) 3.9 10^3/uL (1.7-8.2); BASOPHILS % (MANUAL) 2 % (0-2); EOSINOPHILS % (MANUAL) 7 % (0-6); LYMPHOCYTES % (MANUAL) 9 % (13-45); METAMYELOCYTES % (MANUAL) 1 % (0); MONOCYTES % (MANUAL) 7 % (3-13); NUCLEATED RED BLOOD CELLS 3 /100 WBC (0); SEGMENTED NEUTROPHILS % (MAN) 74 % (42-78); TOTAL CELLS COUNTED 100
[2018-01-18 07:54] LABS: ACANTHOCYTES SLIGHT; ANISOCYTOSIS 4+; BURR CELLS SLIGHT; OVALOCYTES 1+; POIKILOCYTOSIS 3+; POLYCHROMASIA 1+; SCHISTOCYTES 1+; SPHEROCYTES SLIGHT
[2018-01-18 07:55] LABS: HYPOCHROMASIA 2+; PLATELET CLUMPS PRESENT; TOXIC GRANULATION SLIGHT
[2018-01-18] MEDS ORDERED: PROMETHAZINE HCL 25 MG TABLET PO PRN (08:06)
[2018-01-18] MEDS ORDERED: NORMAL SALINE 250 ML IV PRN ×2 (08:11)
[2018-01-18] MEDS ORDERED: FUROSEMIDE INJ/PF 40 MG/4 ML SDV IV PRN (08:11)
[2018-01-18] MEDS ORDERED: ACETAMINOPHEN 325 MG TABLET PO PRN (08:11)
--- NOTE | 2018-01-18 08:23 | PDOC PROGRESS REPORT ---
Subjective Progress Note for:: 01/18/18 Subjective:: The patient states to feel better this morning. She has received 1 unit of packed red blood cells her hemoglobin was 6.9. He has received prior transfusions and has been seen by the adult education manager. Reason For Visit: HEART FAILURE Physical Exam Vital Signs: Temp Pulse Resp BP Pulse Ox 97.8 F 86 15 98/52 L 99 01/18/18 07:40 01/18/18 07:40 01/18/18 07:40 01/18/18 07:40 01/18/18 07:40 Intake & Output 01/17/18 01/18/18 01/19/18 06:59 06:59 06:59 Intake Total 0 Output Total 0 Balance 0 Weight 91.2 kg General appearance: PRESENT: mild distress Head exam: PRESENT: atraumatic Eye exam: PRESENT: conjunctiva pale Neck exam: PRESENT: carotid bruit, tenderness Respiratory exam: PRESENT: crackles Cardiovascular exam: PRESENT: irregular rhythm, +S1, +S2 GI/Abdominal exam: PRESENT: normal bowel sounds, soft Extremities exam: PRESENT: pedal edema, tenderness Musculoskeletal exam: PRESENT: tenderness Neurological exam: PRESENT: alert, awake Results Laboratory Results: 01/18/18 05:59 Seg Neutrophils % Not Reportable Lymphocytes % Not Reportable Monocytes % Not Reportable Eosinophils % Not Reportable Basophils % Not Reportable Absolute Neutrophils Not Reportable Absolute Lymphocytes Not Reportable Absolute Monocytes Not Reportable Absolute Eosinophils Not Reportable Absolute Basophils Not Reportable Impressions: Chest X-Ray 01/17/18 15:36 IMPRESSION: Large retrocardiac hiatal hernia No acute infiltrates Assessment & Plan - Diagnosis (1) Kyphoscoliosis Is this a current diagnosis for this admission?: Yes Plan: The patient is wheelchair-bound because of severe kyphoscoliosis and prior history of compression fractures (2) Anemia Qualifiers: Anemia type: other cause Other causes of anemia: other cause, not classified Qualified Code(s): D64.89 - Other specified anemias Is this a current diagnosis for this admission?: Yes Plan: We will transfuse with 2 units of packed red blood cells and consult hematology (3) Acute on chronic diastolic (congestive) heart failure Is this a current diagnosis for this admission?: Yes Plan: The patient was third spacing because of the anemia and was transfused will have a higher volume which might help improve the anemia and heart failure (4) Atrial fibrillation Qualifiers: Atrial fibrillation type: paroxysmal Qualified Code(s): I48.0 - Paroxysmal atrial fibrillation Is this a current diagnosis for this admission?: Yes Plan: We will continue with current treatment and consult Dr. Cadena who is her admission nurse coordinator (5) Hypothyroidism Qualifiers: Hypothyroidism type: acquired Qualified Code(s): E03.9 - Hypothyroidism, unspecified Is this a current diagnosis for this admission?: Yes Plan: Continue current treatment (6) GERD (gastroesophageal reflux disease) Is this a current diagnosis for this admission?: Yes Plan: Continue current treatment (7) DNR (do not resuscitate) Is this a current diagnosis for this admission?: Yes Plan: The patient does not want CPR or intubation or chest compressions she does not want any life support
[2018-01-18] MEDS ORDERED: POTASSIUM CHLORIDE 10 MEQ TABLET.SA PO ONE (09:00)
[2018-01-18] MEDS: METOPROLOL TARTRATE 50 MG TABLET PO SCH ×2 (09:17→22:07)
[2018-01-18] MEDS: FUROSEMIDE 40 MG TABLET PO SCH (09:18)
[2018-01-18] MEDS: FENTANYL 25 MCG/HR PATCH.TD72 TOP SCH (09:52)
[2018-01-18] MEDS ORDERED: ENALAPRIL MALEATE 2.5 MG TABLET PO SCH (10:00)
[2018-01-18] MEDS ORDERED: DIGOXIN 0.125 MG TABLET PO SCH (10:00)
[2018-01-18] MEDS ORDERED: CARVEDILOL 3.125 MG TABLET PO SCH (10:00)
[2018-01-18] MEDS ORDERED: FUROSEMIDE INJ/PF 20 MG/2 ML SDV IV SCH (10:00)
[2018-01-18 10:25] LABS: CREATINE KINASE MB 1.55 ng/mL (<4.55)
[2018-01-18 10:30] LABS: TROPONIN I 0.263 ng/mL
[2018-01-18] MEDS: AMIODARONE HCL 200 MG TABLET PO SCH ×2 (14:22→17:46)
[2018-01-18 15:19] LABS: CREATINE KINASE MB 1.43 ng/mL (<4.55); TROPONIN I 0.227 ng/mL
--- NOTE | 2018-01-18 17:48 | PDOC CONSULTATION ---
Consultation Consult Date: 01/18/18 Consult reason:: Hematology consultation is requested for anemia History of Present Illness Admission Date/PCP: 01/17/18 22:24 NORRIS NEAL, History of Present Illness: MIGUEL CHEATHAM is a 87 year old female who was admitted to this hospital in Oct 2017 for pneumonia and CHF. During that admission, she was diagnosed with iron deficiency anemia and given blood and iron infusions. She has a history of A- fib and had been on Eliquis, but this was stopped in Oct due to possible bleeding. She was discharged to Rehab and has now been home for about 3 weeks. Over the past few days, family noticed that she was again pale, her Pulse was elevated and her O2 sats dropped. She was brought to the ED and was found to again have HGB <7. No recent evidence of bleeding. No ASA or blood thinners currently. Past Medical History Cardiac Medical History: Reports: Atrial Fibrillation, Congestive Heart Failure - Diastolic grade 2 Pulmonary Medical History: Reports: Respiratory Failure Denies: Asthma, Chronic Obstructive Pulmonary Disease (COPD) Endocrine Medical History: Reports: Hypothyroidism Musculoskeltal Medical History: Reports: Arthritis, Other - Scoliosis, osteoporosis Hematology: Denies: Anemia Past Surgical History Past Surgical History: Reports: Orthopedic Surgery, Tonsillectomy, Other - Spinal cord stimulator insertion, ladder suspension cataract surgery, Social History Smoking Status: Former Smoker Frequency of Alcohol Use: None Hx Recreational Drug Use: No Drugs: None Hx Prescription Drug Abuse: No - Advance Directive Resuscitation Status: Full Code Family History Family History: CAD, Malignancy Parental Family History Reviewed: Yes - Father [place] age 70. Mother CVA age 90 Children Family History Reviewed: Yes Sibling(s) Family History Reviewed.: Yes - 2 brothers both alive and healthy Medication/Allergy Home Medications: Fentanyl [Duragesic 25 mcg/hr Transdermal Patch] 1 patch TOP Q3D 10/24/17 Furosemide [Lasix 40 mg Tablet] 40 mg PO DAILY 10/24/17 Metoprolol Tartrate [Lopressor 50 mg Tablet] 50 mg PO DAILY 10/24/17 Potassium Chloride [Klor-Con Sprinkle] 10 meq PO WBRKFST 10/24/17 Promethazine HCl [Phenergan 25 mg Tablet] 12.5 mg PO Q6 MDD TAKE WITH DILAUDID 10/24/17 Dexlansoprazole [Dexilant 60 mg Capsule] 60 mg PO DAILY 01/17/18 Hydromorphone HCl [Dilaudid 2 mg Tablet] 2 mg PO Q6 MDD TAKE WITH PHENERGAN 12/02 Guaifenesin [Mucinex] 600 mg PO DAILY 01/18/18 Levothyroxine Sodium [Synthroid 50 Mcg Tablet] 50 mcg PO DAILY 01/18/18 Metoprolol Tartrate [Lopressor 25 mg Tablet] 25 mg PO QHS 01/18/18 Promethazine HCl [Phenergan 25 mg Tablet] 25 mg PO QHS 01/18/18 Ropinirole HCl [Requip] 1 mg PO DAILY 01/18/18 Simvastatin 20 mg PO DAILY 01/18/18 Allergies/Adverse Reactions: No Known Allergies Allergy (Verified 01/17/18 15:36) Review of Systems Constitutional: PRESENT: fatigue. ABSENT: fever(s) Eyes: ABSENT: visual disturbances Ears: ABSENT: hearing changes Nose, Mouth, and Throat: ABSENT: sore throat Cardiovascular: PRESENT: edema. ABSENT: chest pain Respiratory: PRESENT: dyspnea Gastrointestinal: ABSENT: coffee ground emesis, constipation, nausea Genitourinary: ABSENT: dysuria Integumentary: PRESENT: rash - over ankles. Neurological: ABSENT: frequent falls, numbness Psychiatric: ABSENT: anxiety, depression Hematologic/Lymphatic: ABSENT: easy bleeding Physical Exam Vital Signs: Temp Pulse Resp BP Pulse Ox 97.7 F 96 18 108/49 L 96 01/18/18 16:33 01/18/18 16:33 01/18/18 16:33 01/18/18 16:33 01/18/18 16:33 Intake & Output 01/17/18 01/18/18 01/19/18 06:59 06:59 06:59 Intake Total 0 350 Output Total 0 Balance 0 350 Weight 91.2 kg 91.2 kg General appearance: PRESENT: no acute distress, obese, well-developed Exam: 87 year old female. Eye exam: PRESENT: EOMI, PERRLA Ear exam: PRESENT: normal external ear exam Mouth exam: PRESENT: moist, neck supple Neck exam: ABSENT: lymphadenopathy, tenderness Respiratory exam: PRESENT: clear to auscultation rosana, unlabored Cardiovascular exam: PRESENT: irregular rhythm. ABSENT: systolic murmur Vascular exam: PRESENT: pallor GI/Abdominal exam: PRESENT: soft. ABSENT: tenderness Extremities exam: PRESENT: +1 edema Neurological exam: PRESENT: alert, awake, oriented to person, oriented to place , oriented to time, oriented to situation Psychiatric exam: PRESENT: appropriate affect. ABSENT: agitated Focused psych exam: ABSENT: pressured speech, psychomotor agitation Skin exam: PRESENT: pallor, other - erythema bilateral ankles. Results Laboratory Results: 01/18/18 05:59 01/18/18 05:59 WBC 5.2 RBC 2.60 L Hgb 6.8 L Hct 20.3 L MCV 78 L MCH 26.0 L MCHC 33.3 RDW 40.9 H Plt Count 202 Seg Neutrophils % Not Reportable Lymphocytes % Not Reportable Monocytes % Not Reportable Eosinophils % Not Reportable Basophils % Not Reportable Absolute Neutrophils Not Reportable Absolute Lymphocytes Not Reportable Absolute Monocytes Not Reportable Absolute Eosinophils Not Reportable Absolute Basophils Not Reportable 01/18/18 01/18/18 01/18/18 09:40 09:40 14:17 Creatine Kinase < 20 L 22 L CK-MB (CK-2) 1.55 Troponin I 0.263 01/18/18 14:17 Creatine Kinase CK-MB (CK-2) 1.43 Troponin I 0.227 Impressions: Chest X-Ray 01/17/18 15:36 IMPRESSION: Large retrocardiac hiatal hernia No acute infiltrates Assessment & Plan - Diagnosis (1) Anemia Qualifiers: Anemia type: other cause Other causes of anemia: other cause, not classified Qualified Code(s): D64.89 - Other specified anemias Is this a current diagnosis for this admission?: Yes Plan: I am unsure what is causing anemia, but it appears to be iron deficiency. I will check Iron panel, ferritin, B12, Folate. Also ESR, LDH, SPEP with immunofixation. I agree with blood transfusions for now and no blood thinners. She does have some blood in her urine. If LDH is elevated, consider work-up for PNH. - Plan Summary Plan Summary: I will continue to follow her and will be available over the weekend if needed. Dr. iLn will return on Sunday. Please call if needed.
[2018-01-18 21:10] LABS: ABSOLUTE RETICS # 0.084 10^6/uL (0.028-0.122); RETICULOCYTE COUNT (AUTO) 2.52 % (0.66-2.85)
[2018-01-18 21:22] LABS: IRON(TIBC) 246.8 ug/dL (37-170); LDH 546 U/L (313-618)
--- NOTE | 2018-01-18 21:34 | EKG REPORT ---
SEVERITY:- ABNORMAL ECG - SINUS RHYTHM BORDERLINE LEFT AXIS DEVIATION REPOL ABNRM SUGGESTS ISCHEMIA, ANT-LAT LEADS : Confirmed by: Erica Cadena 18-Jan-2018 21:33:45
[2018-01-18 21:36] LABS: ERYTHROCYTE SEDIMENTATION RATE 10 mm/hr (0-30)
[2018-01-18 21:37] LABS: CREATINE KINASE MB 1.2 ng/mL (<4.55); TROPONIN I 0.187 ng/mL
[2018-01-18 22:30] LABS: FOLATE 8.57 ng/mL (>2.76)
[2018-01-18 22:52] LABS: HEMATOCRIT 27.4 % (36.0-47.0); MEAN CORPUSCULAR HEMOGLOBIN 27.1 pg (27.0-33.4); MEAN CORPUSCULAR HGB CONC 34.1 g/dL (32.0-36.0); MEAN CORPUSCULAR VOLUME 79 fl (80-97); PLATELET COUNT 193 10^3/uL (150-450); RED BLOOD COUNT 3.46 10^6/uL (3.72-5.28); RED CELL DISTRIBUTION WIDTH 31.8 % (11.5-14.0); WHITE BLOOD COUNT 5.3 10^3/uL (4.0-10.5)
[2018-01-18 23:00] LABS: HEMOGLOBIN 9.4 g/dL (12.0-15.5)
[2018-01-18 23:06] LABS: ABSOLUTE LYMPHOCYTES# (MANUAL) 1.3 10^3/uL (0.5-4.7); ABSOLUTE MONOCYTES # (MANUAL) 0.5 10^3/uL (0.1-1.4); ABSOLUTE NEUTROPHILS# (MANUAL) 3.3 10^3/uL (1.7-8.2); BASOPHILS % (MANUAL) 1 % (0-2); EOSINOPHILS % (MANUAL) 2 % (0-6); LYMPHOCYTES % (MANUAL) 25 % (13-45); MONOCYTES % (MANUAL) 9 % (3-13); SEGMENTED NEUTROPHILS % (MAN) 63 % (42-78); TOTAL CELLS COUNTED 100
[2018-01-18 23:07] LABS: ANISOCYTOSIS 4+; PLATELET COMMENT ADEQUATE; POIKILOCYTOSIS 2+; SCHISTOCYTES 1+; TOXIC GRANULATION SLIGHT
[2018-01-19] MEDS: LANSOPRAZOLE 30 MG TAB.RAP.DR PO SCH (05:04)
[2018-01-19 07:33] LABS: HEMATOCRIT 26.4 % (36.0-47.0); HEMOGLOBIN 8.8 g/dL (12.0-15.5); MEAN CORPUSCULAR HEMOGLOBIN 26.7 pg (27.0-33.4); MEAN CORPUSCULAR HGB CONC 33.5 g/dL (32.0-36.0); MEAN CORPUSCULAR VOLUME 80 fl (80-97); PLATELET COUNT 179 10^3/uL (150-450); RED BLOOD COUNT 3.31 10^6/uL (3.72-5.28); WHITE BLOOD COUNT 4.8 10^3/uL (4.0-10.5)
[2018-01-19 07:35] LABS: ALANINE AMINOTRANSFERASE 49 U/L (9-52); ALBUMIN 3.1 g/dL (3.5-5.0); ALKALINE PHOSPHATASE 55 U/L (38-126); ANION GAP 11 (5-19); ASPARTATE AMINO TRANSFERASE 29 U/L (14-36); BILIRUBIN,DIRECT 0.5 mg/dL (0.0-0.4); BLOOD UREA NITROGEN 40 mg/dL (7-20); CALCIUM 7.7 mg/dL (8.4-10.2); CARBON DIOXIDE 29 mmol/L (22-30); CHLORIDE 97 mmol/L (98-107); GLUCOSE 91 mg/dL (75-110); POTASSIUM 4.5 mmol/L (3.6-5.0); SODIUM 136.6 mmol/L (137-145); TOTAL PROTEIN 5.1 g/dL (6.3-8.2)
[2018-01-19 07:41] LABS: ABSOLUTE LYMPHOCYTES# (MANUAL) 1.2 10^3/uL (0.5-4.7); ABSOLUTE MONOCYTES # (MANUAL) 0.2 10^3/uL (0.1-1.4); ABSOLUTE NEUTROPHILS# (MANUAL) 3.2 10^3/uL (1.7-8.2); BASOPHILS % (MANUAL) 2 % (0-2); EOSINOPHILS % (MANUAL) 2 % (0-6); LYMPHOCYTES % (MANUAL) 24 % (13-45); MONOCYTES % (MANUAL) 5 % (3-13); NUCLEATED RED BLOOD CELLS 2 /100 WBC (0); SEGMENTED NEUTROPHILS % (MAN) 67 % (42-78); TOTAL CELLS COUNTED 100
[2018-01-19 07:43] LABS: ANISOCYTOSIS 4+; HYPOCHROMASIA SLIGHT; OVALOCYTES 1+; POIKILOCYTOSIS 1+; POLYCHROMASIA SLIGHT
[2018-01-19 07:44] LABS: PLATELET COMMENT ADEQUATE; SCHISTOCYTES 1+
[2018-01-19] MEDS ORDERED: POTASSIUM CHLORIDE 10 MEQ PO SCH (08:00)
[2018-01-19] MEDS: AMIODARONE HCL 200 MG TABLET PO SCH ×3 (08:29→17:09)
[2018-01-19] MEDS: POTASSIUM CHLORIDE 10 MEQ TABLET.SA PO SCH (08:29)
[2018-01-19] MEDS: FUROSEMIDE 40 MG TABLET PO SCH (09:38)
[2018-01-19] MEDS: METOPROLOL TARTRATE 50 MG TABLET PO SCH ×2 (09:38→21:18)
--- NOTE | 2018-01-19 10:25 | PROGRESS NOTE E ---
Progress Note NAME: MIGUEL CHEATHAM : 1930 AGE: 87Y DATE: 01/19/2018 ROOM: 327 SUBJECTIVE: The patient is currently lying in bed. She states she feels better than she did yesterday. The patient feels that her shortness of breath is at baseline. She denies any nausea, vomiting, diarrhea. No dizziness, chest pain. No fevers, chills. The patient has been afebrile. Her blood pressure has been in a good range. The patient mainly complains of overall weakness, and the patient does not voice any other concerns at this time. REVIEW OF SYSTEMS: Rest of review of systems negative. MEDICATIONS: Medications have been reviewed. OBJECTIVE: GENERAL: The patient is an 87-year-old female who is awake, alert. She is oriented to person, place, time, and situation. She is verbal, conversational, does not appear to be in any acute distress. VITAL SIGNS: Temperature is 97.7, pulse 74, respirations 20, blood pressure is 103/54, oxygen saturation is 100% on 5 L nasal cannula. SKIN: Warm and dry. No rash. She is not diaphoretic, quite pale. HEENT: Pupils equal, round, and reactive to light and accommodation. Conjunctiva is pink. There is no evidence of JVP. CARDIOVASCULAR SYSTEM: Heart is regular. No rub. CHEST: Diminished, symmetrical, unlabored. ABDOMEN: Soft, nontender, nondistended. BACK: No CVA tenderness or sacral edema. EXTREMITIES: No clubbing, cyanosis. The patient does have evidence of chronic third spacing lower extremity edema. Slight redness noted on the right extremity. PSYCHIATRIC: Appropriate affect, pleasant mood. DIAGNOSTICS: Lab values are as follows: Hematology obtained on 01/19/2018: WBCs are 4.8, hemoglobin is 8.8, hematocrit is 26.4, platelet count is 179,000. Coagulation obtained on 01/17/2018: PT is 18.8, INR is 1.5. Venous blood gas obtained on 01/17/2018: PH is 7.31, PCO2 is 51.1, bicarb is 25.5. Chemistry obtained on 01/19/2018: Sodium is 136, potassium 4.5, chloride is 97, carbon dioxide 29, BUN 40, creatinine is 0.88, glucose 91, calcium is 7.7, bilirubin is 2. Total protein 5.1, albumin 3.1. IMPRESSION AND PLAN: 1. IRON DEFICIENCY ANEMIA. The patient has been seen by Hematology in the past. Uncertain of the exact underlying etiology of this, could be from her overall poor intake or absorption. Regardless, looks like she is having an extensive hematological workup. The patient has been typed and crossed, transfused. At this time, the patient's hemoglobin is improved up to 8.8. It looks like she has received a total of 3 units since admission. Will repeat CBC in the a.m. and follow. Ideally, the patient's hemoglobin does need to be on the higher end given it is probably contributing to her third spacing. 2. ACUTE ON CHRONIC DIASTOLIC CONGESTIVE HEART FAILURE. Again, I think the patient has third spacing more from a malnutrition standpoint than anything else. Her albumin is low. The patient will be seen by Cardiology as well. Will follow. Of course, correction of anemia will help this. 3. ATRIAL FIBRILLATION. This is paroxysmal. The patient is rate controlled. Do appreciate Dr. Cadena's input with this. 4. HYPOTHYROIDISM. Will continue levothyroxine. 5. GERD. Continue treatment, which may be actually less than her absorption of iron, but again, will defer to Hematology. 6. ACUTE HYPOXEMIC RESPIRATORY FAILURE. The patient is requiring O2 at this time. May have some underlying COPD contributing to this as well. Of course, with anemia correction and diuresis, hopefully this will improve. Will follow. 7. OPIATE DEPENDENCY, CONTINUOUS. Continue the patient's home medications. DISPOSITION: The patient is a DO NOT RESUSCITATE/DO NOT INTUBATE. Pending patient's symptomatology and diagnostic findings, will re-evaluate in the a.m. Time spent on this followup including assessment, plan, physical examination, patient education, review of records is 25 minutes. DICTATING PHYSICIAN: NORRIS MANTILLA NP [id number] PHY#: [id number] ID: [id number] JOB#: [id number] ACCT: [id number] cc: >
--- NOTE | 2018-01-19 12:48 | PDOC CONSULTATION ---
Consultation Consult Date: 01/18/18 Attending physician:: PRACHI TOBAR Consult reason:: Non-STEMI and CHF History of Present Illness Admission Date/PCP: 01/17/18 22:24 NORRIS NEAL, Patient complains of: Shortness of breath History of Present Illness: MIGUEL CHEATHAM is a 87 year old female patient with past medical history of hypothyroidism, osteoporosis COPD, A. fib currently of Eliquis but heart rate is well controlled and grade 2 diastolic congestive heart failure who is referred from her primary care physician office for shortness of breath and hypotension. After baseline patient is a known case of end-stage lung disease and she has been on oxygen 24 7. The last 1 week her oxygen requirement increased and while she is on 6 L of oxygen she desaturates in the 70s. Most of the history is obtained from her daughter during my encounter. Recently also patient become more pale and developed bilateral leg swelling. Her initial blood workup shows severe anemia with hemoglobin of 6.2 and markedly elevated BNP of 22,000. Reportedly her anemia is not new it has chronic iron deficiency but the etiology is not identified and there is no report of external bleeding in the form of melena, hematochezia or hematuria. Patient has history of chronic pain pertaining to her knees and shoulder and she has also compressed vertebral fracture from severe osteoporosis so she has been on fentanyl patch and Vicodin. There is no report of chills, fever, nausea , vomiting, abdominal pain or any urinary complaints. Patient has orthopnea of 3 pillows but no PND. This history obtained by the hospitalist was reviewed and confirmed with the patient. Nurse told me that patient has been in intermittent atrial fibrillation. Patient also has positive troponin I. However on repeated questioning she is denying any chest pain. Past Medical History Cardiac Medical History: Reports: Atrial Fibrillation, Congestive Heart Failure - Diastolic grade 2 Pulmonary Medical History: Reports: Respiratory Failure Denies: Asthma, Chronic Obstructive Pulmonary Disease (COPD) Endocrine Medical History: Reports: Hypothyroidism Musculoskeltal Medical History: Reports: Arthritis, Other - Scoliosis, osteoporosis Hematology: Denies: Anemia Past Surgical History Past Surgical History: Reports: Orthopedic Surgery, Tonsillectomy, Other - Spinal cord stimulator insertion, ladder suspension cataract surgery, Social History Information Source: Patient Smoking Status: Former Smoker Frequency of Alcohol Use: None Hx Recreational Drug Use: No Drugs: None Hx Prescription Drug Abuse: No - Advance Directive Resuscitation Status: Do Not Resuscitate Family History Family History: CAD, Malignancy Parental Family History Reviewed: Yes Children Family History Reviewed: Yes Sibling(s) Family History Reviewed.: Yes Medication/Allergy Home Medications: Fentanyl [Duragesic 25 mcg/hr Transdermal Patch] 1 patch TOP Q3D 10/24/17 Furosemide [Lasix 40 mg Tablet] 40 mg PO DAILY 10/24/17 Metoprolol Tartrate [Lopressor 50 mg Tablet] 50 mg PO DAILY 10/24/17 Potassium Chloride [Klor-Con Sprinkle] 10 meq PO [id number] 10/24/17 Promethazine HCl [Phenergan 25 mg Tablet] 12.5 mg PO Q6 MDD TAKE WITH DILAUDID 10/24/17 Dexlansoprazole [Dexilant 60 mg Capsule] 60 mg PO DAILY 01/17/18 Hydromorphone HCl [Dilaudid 2 mg Tablet] 2 mg PO Q6 MDD TAKE WITH PHENERGAN 12/02 Guaifenesin [Mucinex] 600 mg PO DAILY 01/18/18 Levothyroxine Sodium [Synthroid 50 Mcg Tablet] 50 mcg PO DAILY 01/18/18 Metoprolol Tartrate [Lopressor 25 mg Tablet] 25 mg PO QHS 01/18/18 Promethazine HCl [Phenergan 25 mg Tablet] 25 mg PO QHS 01/18/18 Ropinirole HCl [Requip] 1 mg PO DAILY 01/18/18 Simvastatin 20 mg PO DAILY 01/18/18 Allergies/Adverse Reactions: No Known Allergies Allergy (Verified 01/17/18 15:36) Review of Systems Review of Systems: Please see history of present illness and past medical history as wall. Constitutional: No fever or chills reported. Fatigue and tiredness reported. Head : No recent chronic headaches, recent head injury. Eyes: No recent eye pain, diplopia, redness, discharge, acute visual changes. Ears: No recent chronic ear pain, acute hearing loss, ear discharge. Oral cavity: No recent ulcerations, bleeding, oral cavity discomfort. Neck: No recent acute neck pain reported. Hematologic: No recent easy bruising or bleeding. Lymphatic: No recent lymph node enlargement reported. Cardiovascular system review: See history of present illness. No chest pain reported. Intermittent palpitations present. Respiratory system review: No hemoptysis or blood clots in the lungs reported. Shortness of breath on exertion Gastrointestinal system review: Negative for any recent acute hematemesis, melena. Genitourinary system review: No recent acute or chronic hematuria, flank pain, UTI etc. reported. Skin system review: Negative for any recent abnormal bruising, rash reported both legs. Neurologic: No prior history of strokes, mini strokes, seizure disorder. Psychologic: No history of major psychosis or major depression reported. Musculoskeletal: Minor aches and pains reported. No acute joint swelling reported. Endocrine: No recent polyuria, polydipsia, recent heat or cold intolerance. Physical Exam Vital Signs: Temp Pulse Resp BP Pulse Ox 98.2 F 89 20 99/45 L 89 L 01/18/18 21:00 01/18/18 21:00 01/18/18 21:00 01/18/18 21:00 01/18/18 21:00 Intake & Output 01/17/18 01/18/18 01/19/18 06:59 06:59 06:59 Intake Total 0 1970 Output Total 0 Balance 0 1969 Weight 91.2 kg 91.2 kg Exam: GENERAL: well-nourished and in no acute distress. Alert and oriented x3 HEAD: Atraumatic, normocephalic. EYES: Pupils equal round and reactive to light, extraocular movements intact, sclera anicteric, conjunctiva are normal. ENT: TMs normal, nares patent, oropharynx clear without exudates. Moist mucous membranes. No oral ulcerations or bleeding gums noted NECK: supple without lymphadenopathy. Trachea is central. No cervical or axillary lymphadenopathy noted. Carotids are 2+, JVD WNL LUNGS: Respiration seems nonlabored, no significant accessory muscle action noted. Bibasilar fine crackles are noted.. No significant dullness noted on percussion. CHEST: Palpation of the chest wall shows no significant chest wall tenderness. HEART: [place] P[facility]IATRICIAN, No PSH, 1/6 JACINTO aortic area, 1/6 aguirre systolic murmur mitral area, no rubs, no gallops. ABDOMEN: Soft, no significant tenderness appreciated, normoactive bowel sounds. No guarding, no rebound. No rigidity noted . No masses appreciated. EXTREMITIES: Pedal pulses are 1-2+, no calf tenderness noted. No clubbing or cyanosis. 1-2+ pedal edema noted NEUROLOGICAL: Focused neurological exam showed no significant neurologic deficit. Normal speech, no focal weakness appreciated. PSYCH: Normal mood, normal affect. Judgment and insight within normal limits. SKIN: No significant ecchymosis, skin is noted to be warm. Mild erythematous rash noted both legs. MUSCULOSKELETAL EXAM: No significant acute joint swelling noted. Results Laboratory Results: 01/18/18 05:59 01/18/18 01/18/18 05:59 20:50 WBC 5.2 RBC 2.60 L Hgb 6.8 L Hct 20.3 L MCV 78 L MCH 26.0 L MCHC 33.3 RDW 40.9 H Plt Count 202 Seg Neutrophils % Not Reportable Lymphocytes % Not Reportable Monocytes % Not Reportable Eosinophils % Not Reportable Basophils % Not Reportable Absolute Neutrophils Not Reportable Absolute Lymphocytes Not Reportable Absolute Monocytes Not Reportable Absolute Eosinophils Not Reportable Absolute Basophils Not Reportable Retic Count (auto) 2.52 Absolute Retic 0.084 01/18/18 01/18/18 01/18/18 09:40 09:40 14:17 Creatine Kinase < 20 L 22 L CK-MB (CK-2) 1.55 Troponin I 0.263 01/18/18 01/18/18 01/18/18 14:17 20:50 20:50 Creatine Kinase < 20 L CK-MB (CK-2) 1.43 1.20 Troponin I 0.227 0.187 EKG Comments: Sinus rhythm with minor nonspecific T-wave changes Impressions: Chest X-Ray 01/17/18 15:36 IMPRESSION: Large retrocardiac hiatal hernia No acute infiltrates Assessment & Plan - Diagnosis (1) Non-STEMI (non-ST elevated myocardial infarction) Is this a current diagnosis for this admission?: Yes (2) Severe anemia Is this a current diagnosis for this admission?: Yes (3) CHF (congestive heart failure) Qualifiers: Heart failure type: unspecified Is this a current diagnosis for this admission?: Yes (4) Atrial fibrillation Qualifiers: Atrial fibrillation type: paroxysmal Qualified Code(s): I48.0 - Paroxysmal atrial fibrillation Is this a current diagnosis for this admission?: Yes (5) Hyperlipidemia Qualifiers: Hyperlipidemia type: unspecified Qualified Code(s): E78.5 - Hyperlipidemia , unspecified Is this a current diagnosis for this admission?: Yes - Notes Notes: Non-STEMI: Most likely precipitated by severe anemia and supply demand mismatch rather than acute coronary syndrome. At this point recommend good control of heart rate, correction of anemia. Patient has been noted by the nurses to have intermittent rapid heartbeat and atrial fibrillation. It will be important to maintain patient in sinus rhythm. Have therefore placed patient on amiodarone. There are relative contraindications. Severe anemia: Patient to receive blood transfusion. Recommend maintaining hemoglobin above 8 g percent if feasible. CHF: Recommend diuretic therapy. Will repeat a 2D echo in view of Non-STEMI. Atrial fibrillation: Currently chronic anticoagulation on hold because of anemia. May consider restarting it if clinically indicated but will leave decision to database design analyst and oncology debt counselor. Patient does have elevated has bled score. Hyperlipidemia: Continue with statin therapy. - Time Time Spent: 30 to 50 Minutes - CODE STATUS : was discussed, patient remains DO NOT RESUSCITATE. Surrogate decision-maker patient's daughter. Multiple medical problems were addressed. More than 50% of the time spent coordinating care, discussing management plans with involved caregivers. Management plans discussed with involved personnels. Medical decision making was of moderate to high complexity, patient's has multiple comorbidities. Medications reviewed and adjusted accordingly: Yes
--- NOTE | 2018-01-19 12:52 | PDOC PROGRESS REPORT ---
Subjective Progress Note for:: 01/19/18 Subjective:: Patient seems to be doing better with gradual improvement. Pt is denying any chest arm or neck discomfort. Patient denying any PND, orthopnea. Patient denied any sustained palpitations, dizziness, syncope, near syncope. Patient denying any fever chills. Patient denying any other significant discomfort. Patient is maintaining sinus rhythm. Review of systems: Rest review of systems negative. Medications: Medications have been reviewed. Reason For Visit: HEART FAILURE Physical Exam Vital Signs: Temp Pulse Resp BP Pulse Ox 97.8 F 83 20 109/45 L 97 01/19/18 11:26 01/19/18 11:26 01/19/18 11:26 01/19/18 11:26 01/19/18 11:26 Intake & Output 01/18/18 01/19/18 01/20/18 06:59 06:59 06:59 Intake Total 0 2360 Output Total 0 Balance 0 2360 Weight 91.2 kg 79.3 kg Exam: GENERAL: well-nourished and in no acute distress. Alert and oriented x3 HEAD: Atraumatic, normocephalic. EYES: Pupils equal round and reactive to light, extraocular movements intact, sclera anicteric, conjunctiva are normal. ENT: TMs normal, nares patent, oropharynx clear without exudates. Moist mucous membranes. No oral ulcerations or bleeding gums noted NECK: supple without lymphadenopathy. Trachea is central. No cervical or axillary lymphadenopathy noted. Carotids are 2+, JVD WNL LUNGS: Respiration seems nonlabored, no significant accessory muscle action noted. Breath sounds clear to auscultation bilaterally and equal noted. No wheezes rales or rhonchi noted. No significant dullness noted on percussion. CHEST: Palpation of the chest wall shows no significant chest wall tenderness. HEART: [place] [employer], No PSH, 1/6 JACINTO aortic area, 1/6 aguirre systolic murmur mitral area, no rubs, no gallops. ABDOMEN: Soft, no significant tenderness appreciated, normoactive bowel sounds. No guarding, no rebound. No rigidity noted . No masses appreciated. EXTREMITIES: Pedal pulses are 1-2+, no calf tenderness noted. No clubbing or cyanosis. 1+ pedal edema noted NEUROLOGICAL: Focused neurological exam showed no significant neurologic deficit. Normal speech, no focal weakness appreciated. PSYCH: Normal mood, normal affect. Judgment and insight within normal limits. SKIN: No significant ecchymosis, skin is noted to be warm. Mild erythematous rash noted both legs MUSCULOSKELETAL EXAM: No significant acute joint swelling noted. Results Laboratory Results: 01/19/18 06:15 01/19/18 06:15 01/18/18 01/18/18 01/18/18 20:50 20:50 22:40 WBC 5.3 RBC 3.46 L Hgb 9.4 L D Hct 27.4 L MCV 79 L MCH 27.1 MCHC 34.1 RDW 31.8 H Plt Count 193 Seg Neutrophils % Not Reportable Lymphocytes % Not Reportable Monocytes % Not Reportable Eosinophils % Not Reportable Basophils % Not Reportable Absolute Neutrophils Not Reportable Absolute Lymphocytes Not Reportable Absolute Monocytes Not Reportable Absolute Eosinophils Not Reportable Absolute Basophils Not Reportable Retic Count (auto) 2.52 Absolute Retic 0.084 Sodium Potassium Chloride Carbon Dioxide Anion Gap BUN Creatinine Est GFR ( Amer) Est GFR (Non-Af Amer) Glucose Calcium Iron 246.8 H TIBC 305 % Saturation 81 Ferritin 226.00 Total Bilirubin AST ALT Alkaline Phosphatase Total Protein Albumin Vitamin B12 761.0 Folate 8.57 01/19/18 01/19/18 06:15 06:15 WBC 4.8 RBC 3.31 L Hgb 8.8 L Hct 26.4 L MCV 80 MCH 26.7 L MCHC 33.5 RDW 33.0 H Plt Count 179 Seg Neutrophils % Not Reportable Lymphocytes % Not Reportable Monocytes % Not Reportable Eosinophils % Not Reportable Basophils % Not Reportable Absolute Neutrophils Not Reportable Absolute Lymphocytes Not Reportable Absolute Monocytes Not Reportable Absolute Eosinophils Not Reportable Absolute Basophils Not Reportable Retic Count (auto) Absolute Retic Sodium 136.6 L Potassium 4.5 Chloride 97 L Carbon Dioxide 29 Anion Gap 11 BUN 40 H Creatinine 0.88 Est GFR ( Amer) > 60 Est GFR (Non-Af Amer) > 60 Glucose 91 Calcium 7.7 L Iron TIBC % Saturation Ferritin Total Bilirubin 2.0 H AST 29 ALT 49 Alkaline Phosphatase 55 Total Protein 5.1 L Albumin 3.1 L Vitamin B12 Folate 01/18/18 01/18/18 01/18/18 09:40 09:40 14:17 Creatine Kinase < 20 L 22 L CK-MB (CK-2) 1.55 Troponin I 0.263 NT-Pro-B Natriuret Pep 01/18/18 01/18/18 01/18/18 14:17 20:50 20:50 Creatine Kinase < 20 L CK-MB (CK-2) 1.43 1.20 Troponin I 0.227 0.187 NT-Pro-B Natriuret Pep 01/19/18 06:15 Creatine Kinase CK-MB (CK-2) Troponin I NT-Pro-B Natriuret Pep [id number] H EKG Comments: Shows predominantly sinus rhythm. Impressions: Chest X-Ray 01/17/18 15:36 IMPRESSION: Large retrocardiac hiatal hernia No acute infiltrates Assessment & Plan - Diagnosis (1) Non-STEMI (non-ST elevated myocardial infarction) Is this a current diagnosis for this admission?: Yes (2) Severe anemia Is this a current diagnosis for this admission?: Yes (3) CHF (congestive heart failure) Qualifiers: Heart failure type: unspecified Is this a current diagnosis for this admission?: Yes (4) Atrial fibrillation Qualifiers: Atrial fibrillation type: paroxysmal Qualified Code(s): I48.0 - Paroxysmal atrial fibrillation Is this a current diagnosis for this admission?: Yes (5) Hyperlipidemia Qualifiers: Hyperlipidemia type: unspecified Qualified Code(s): E78.5 - Hyperlipidemia , unspecified Is this a current diagnosis for this admission?: Yes - Notes Notes: Patient feeling much improved without any chest pain. Patient is comfortable laying in bed without any shortness of breath. Will repeat an EKG for tomorrow morning. Today's EKG shows minor nonspecific ST segment changes. Will also order a 2D echo. Non-STEMI: Most likely precipitated by severe anemia and supply demand mismatch rather than acute coronary syndrome. At this point recommend good control of heart rate, correction of anemia. Patient has been noted by the nurses to have intermittent rapid heartbeat and atrial fibrillation. It will be important to maintain patient in sinus rhythm. Have therefore placed patient on amiodarone. There are relative contraindications. Severe anemia: Patient patient received 3 units of blood transfusion. Recommend maintaining hemoglobin above 8 g percent if feasible. CHF: Recommend diuretic therapy. Will repeat a 2D echo in view of Non-STEMI. Atrial fibrillation: Currently chronic anticoagulation on hold because of anemia. May consider restarting it if clinically indicated but will leave decision to property consultant and oncology garden tractor mechanic. Patient does have elevated has bled score. Hyperlipidemia: Continue with statin therapy. - Time Time with patient: Greater than 35 minutes - CODE STATUS was discussed, patient remains DNR. Surrogate decision-maker unchanged. Multiple medical problems were addressed. More than 50% of the time spent coordinating care, discussing management plans with involved caregivers. Management plans discussed with involved personnels. Medical decision making was of moderate to high complexity , patient's has multiple comorbidities.
[2018-01-19] MEDS: PROMETHAZINE HCL 25 MG TABLET PO PRN (18:00)
[2018-01-19] MEDS: HYDROMORPHONE HCL 2 MG TABLET PO PRN (18:00)
--- NOTE | 2018-01-19 20:18 | EKG REPORT ---
SEVERITY:- ABNORMAL ECG - SINUS RHYTHM ATRIAL PREMATURE COMPLEX BORDERLINE LEFT AXIS DEVIATION BORDERLINE R WAVE PROGRESSION, ANTERIOR LEADS NONSPECIFIC REPOL ABNORMALITY, DIFFUSE LEADS : Confirmed by: Erica Cadena 19-Jan-2018 20:16:51
[2018-01-20] MEDS: HYDROMORPHONE HCL 2 MG TABLET PO PRN ×2 (00:05→07:32)
[2018-01-20] MEDS: PROMETHAZINE HCL 25 MG TABLET PO SCH ×3 (00:05→17:59)
[2018-01-20] MEDS: LANSOPRAZOLE 30 MG TAB.RAP.DR PO SCH (05:51)
[2018-01-20] MEDS: LEVOTHYROXINE SODIUM 0.05 MG TABLET PO SCH (05:51)
[2018-01-20] MEDS: PROMETHAZINE HCL 25 MG TABLET PO PRN (07:33)
[2018-01-20] MEDS: POTASSIUM CHLORIDE 10 MEQ TABLET.SA PO SCH (08:03)
[2018-01-20] MEDS: AMIODARONE HCL 200 MG TABLET PO SCH ×3 (08:03→17:59)
[2018-01-20] MEDS: FUROSEMIDE 40 MG TABLET PO SCH (09:34)
[2018-01-20] MEDS: METOPROLOL TARTRATE 50 MG TABLET PO SCH ×2 (09:35→23:01)
--- NOTE | 2018-01-20 10:30 | EKG REPORT ---
SEVERITY:- ABNORMAL ECG - SINUS RHYTHM NONSPECIFIC T ABNORMALITIES, ANTERIOR LEADS : Confirmed by: Erica Cadena 20-Jan-2018 10:29:33
--- NOTE | 2018-01-20 12:18 | PDOC PROGRESS REPORT ---
Subjective Progress Note for:: 01/20/18 Subjective:: No overnight events. Energy level is better after transfusion. Noted to have mild redness on right lower extremity. Denies pain or other extremity symptoms. PO intake good. Moving bowels. No other symptoms. Reason For Visit: HEART FAILURE Physical Exam Vital Signs: Temp Pulse Resp BP Pulse Ox 97.4 F 76 20 102/45 L 95 01/20/18 07:17 01/20/18 07:17 01/20/18 07:17 01/20/18 07:17 01/20/18 07:17 Intake & Output 01/19/18 01/20/18 01/21/18 06:59 06:59 06:59 Intake Total 2360 1047 Output Total 1700 Balance 2360 -653 Weight 79.3 kg 79.2 kg General appearance: PRESENT: no acute distress, cooperative, obese Mouth exam: PRESENT: moist Respiratory exam: PRESENT: unlabored Cardiovascular exam: PRESENT: irregular rhythm. ABSENT: tachycardia GI/Abdominal exam: PRESENT: soft. ABSENT: tenderness Extremities exam: PRESENT: +1 edema, other - Right lower extremity with mild erythema proximal to ankle. Non tender to palpation. Neurological exam: PRESENT: alert, awake, CN II-XII grossly intact Psychiatric exam: PRESENT: appropriate affect Results Laboratory Results: 01/19/18 06:15 01/19/18 06:15 01/18/18 01/18/18 01/18/18 09:40 09:40 14:17 Creatine Kinase < 20 L 22 L CK-MB (CK-2) 1.55 Troponin I 0.263 NT-Pro-B Natriuret Pep 01/18/18 01/18/18 01/18/18 14:17 20:50 20:50 Creatine Kinase < 20 L CK-MB (CK-2) 1.43 1.20 Troponin I 0.227 0.187 NT-Pro-B Natriuret Pep 01/19/18 06:15 Creatine Kinase CK-MB (CK-2) Troponin I NT-Pro-B Natriuret Pep 72731 H Impressions: Chest X-Ray 01/17/18 15:36 IMPRESSION: Large retrocardiac hiatal hernia No acute infiltrates Assessment & Plan - Diagnosis (1) Anemia Qualifiers: Anemia type: other cause Other causes of anemia: other cause, not classified Qualified Code(s): D64.89 - Other specified anemias Is this a current diagnosis for this admission?: Yes Plan: Improved, no additional transfusions required (2) CHF (congestive heart failure) Qualifiers: Heart failure type: unspecified Is this a current diagnosis for this admission?: Yes Plan: Stable, continue current management- Seen by cardiology. Plan to repeat TTE for reasons that are no entirely clear. (3) Atrial fibrillation Qualifiers: Atrial fibrillation type: paroxysmal Qualified Code(s): I48.0 - Paroxysmal atrial fibrillation Is this a current diagnosis for this admission?: Yes Plan: Chronic - Seen by cardiology (4) Hypothyroidism Qualifiers: Hypothyroidism type: acquired Qualified Code(s): E03.9 - Hypothyroidism, unspecified Is this a current diagnosis for this admission?: Yes Plan: Stable. - Time Time Spent with patient: Less than 15 minutes Within: within 24 hours
[2018-01-20] MEDS: HYDROMORPHONE HCL 2 MG TABLET PO SCH ×2 (12:20→17:58)
--- NOTE | 2018-01-20 12:56 | PDOC PROGRESS REPORT ---
Subjective Progress Note for:: 01/20/18 Subjective:: Patient's daughter had noted her feet to be cold. Patient however not complaining of any discomfort. Patient seems to be doing better with gradual improvement. Pt is denying any chest arm or neck discomfort. Patient denying any PND, orthopnea. Patient denied any sustained palpitations, dizziness, syncope, near syncope. Patient denying any fever chills. Patient denying any other significant discomfort. Patient is maintaining sinus rhythm. Review of systems: Rest review of systems negative. Medications: Medications have been reviewed. Reason For Visit: HEART FAILURE Physical Exam Vital Signs: Temp Pulse Resp BP Pulse Ox 98.0 F 75 20 96/52 L 94 01/20/18 12:44 01/20/18 12:44 01/20/18 12:44 01/20/18 12:44 01/20/18 12:44 Intake & Output 01/19/18 01/20/18 01/21/18 06:59 06:59 06:59 Intake Total 2360 1047 237 Output Total 1700 300 Balance 2360 -653 -63 Weight 79.3 kg 79.2 kg Exam: GENERAL: well-nourished and in no acute distress. Alert and oriented x2 HEAD: Atraumatic, normocephalic. EYES: Pupils equal round and reactive to light, extraocular movements intact, sclera anicteric, conjunctiva are normal. ENT: TMs normal, nares patent, oropharynx clear without exudates. Moist mucous membranes. No oral ulcerations or bleeding gums noted NECK: supple without lymphadenopathy. Trachea is central. No cervical or axillary lymphadenopathy noted. Carotids are 2+, JVD WNL LUNGS: Respiration seems nonlabored, no significant accessory muscle action noted. Breath sounds clear to auscultation bilaterally and equal noted. No wheezes rales or rhonchi noted. No significant dullness noted on percussion. CHEST: Palpation of the chest wall shows no significant chest wall tenderness. 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 ABDOMEN: Soft, no significant tenderness appreciated, normoactive bowel sounds. No guarding, no rebound. No rigidity noted . No masses appreciated. EXTREMITIES: Pedal pulses are 1-2+, no calf tenderness noted. No clubbing or cyanosis. negative pedal edema noted NEUROLOGICAL: Focused neurological exam showed no significant neurologic deficit. Normal speech, no focal weakness appreciated. PSYCH: Normal mood, normal affect. Judgment and insight not checked. SKIN: No significant ecchymosis, skin is noted to be warm. MUSCULOSKELETAL EXAM: No significant acute joint swelling noted. Results Laboratory Results: 01/19/18 06:15 01/19/18 06:15 01/18/18 01/18/18 01/18/18 09:40 09:40 14:17 Creatine Kinase < 20 L 22 L CK-MB (CK-2) 1.55 Troponin I 0.263 NT-Pro-B Natriuret Pep 01/18/18 01/18/18 01/18/18 14:17 20:50 20:50 Creatine Kinase < 20 L CK-MB (CK-2) 1.43 1.20 Troponin I 0.227 0.187 NT-Pro-B Natriuret Pep 01/19/18 06:15 Creatine Kinase CK-MB (CK-2) Troponin I NT-Pro-B Natriuret Pep 14620 H Impressions: Chest X-Ray 01/17/18 15:36 IMPRESSION: Large retrocardiac hiatal hernia No acute infiltrates Assessment & Plan - Diagnosis (1) Non-STEMI (non-ST elevated myocardial infarction) Is this a current diagnosis for this admission?: Yes (2) Severe anemia Is this a current diagnosis for this admission?: Yes (3) CHF (congestive heart failure) Qualifiers: Heart failure type: unspecified Is this a current diagnosis for this admission?: Yes (4) Atrial fibrillation Qualifiers: Atrial fibrillation type: paroxysmal Qualified Code(s): I48.0 - Paroxysmal atrial fibrillation Is this a current diagnosis for this admission?: Yes (5) Hyperlipidemia Qualifiers: Hyperlipidemia type: unspecified Qualified Code(s): E78.5 - Hyperlipidemia , unspecified Is this a current diagnosis for this admission?: Yes - Notes Notes: Patient's daughter has noted cold feet but has good capillary refill. Pedal pulse is noted to be diminished. Also had a talk with patient's daughter regarding considering patient for chronic anticoagulation. At this point she is not inclined for the patient to be put back on chronic anticoagulation. Discussed that this may need to be reassessed periodically. Patient feeling much improved without any chest pain. Patient is comfortable laying in bed without any shortness of breath. Non-STEMI: Most likely precipitated by severe anemia and supply demand mismatch rather than acute coronary syndrome. At this point recommend good control of heart rate, correction of anemia. Patient has been noted by the nurses to have intermittent rapid heartbeat and atrial fibrillation. It will be important to maintain patient in sinus rhythm. Continue patient on amiodarone. There are relative contraindications. Severe anemia: Patient patient received 3 units of blood transfusion. Recommend maintaining hemoglobin above 8 g percent if feasible. CHF: Recommend diuretic therapy. Will repeat a 2D echo in view of Non-STEMI. Atrial fibrillation: Currently chronic anticoagulation on hold because of anemia. But will leave decision to pmo business analyst and oncology motor equipment lieutenant. Patient does have elevated has bled score. At this time patient daughter is not inclined for patient to be on chronic anticoagulation. Hyperlipidemia: Continue with statin therapy. - Time Time with patient: Greater than 35 minutes - CODE STATUS : was discussed, patient remains DO NOT RESUSCITATE. Surrogate decision-maker unchanged. Multiple medical problems were addressed. More than 50% of the time spent coordinating care, discussing management plans with involved caregivers. Management plans discussed with involved personnels. Medical decision making was of moderate to high complexity, patient's has multiple comorbidities. Medications reviewed and adjusted accordingly: Yes
[2018-01-21] MEDS: PROMETHAZINE HCL 25 MG TABLET PO SCH ×7 (00:04→23:42)
[2018-01-21] MEDS: HYDROMORPHONE HCL 2 MG TABLET PO SCH ×5 (00:06→23:41)
[2018-01-21] MEDS: LANSOPRAZOLE 30 MG TAB.RAP.DR PO SCH (06:14)
[2018-01-21] MEDS: LEVOTHYROXINE SODIUM 0.05 MG TABLET PO SCH (06:14)
--- NOTE | 2018-01-21 08:06 | PDOC PROGRESS REPORT ---
Subjective Progress Note for:: 01/21/18 Subjective:: feeling better. HH up. no SOB Reason For Visit: HEART FAILURE Physical Exam Vital Signs: Temp Pulse Resp BP Pulse Ox 98.2 F 73 20 104/45 L 97 01/21/18 03:57 01/21/18 03:57 01/21/18 03:57 01/21/18 03:57 01/21/18 03:57 Intake & Output 01/20/18 01/21/18 01/22/18 06:59 06:59 06:59 Intake Total 1047 833 Output Total 1700 300 Balance -653 533 Weight 79.2 kg 82 kg General appearance: PRESENT: no acute distress Head exam: PRESENT: atraumatic Eye exam: PRESENT: conjunctiva pink Neck exam: ABSENT: carotid bruit Respiratory exam: PRESENT: crackles Cardiovascular exam: PRESENT: RRR, +S1, +S2 Pulses: PRESENT: +1 pedal pulses bilateral GI/Abdominal exam: PRESENT: normal bowel sounds, soft Extremities exam: PRESENT: tenderness Musculoskeletal exam: PRESENT: tenderness Neurological exam: PRESENT: alert, awake Results Laboratory Results: 01/19/18 06:15 01/19/18 06:15 01/18/18 20:50 Transferrin 202 01/18/18 01/18/18 01/18/18 09:40 09:40 14:17 Creatine Kinase < 20 L 22 L CK-MB (CK-2) 1.55 Troponin I 0.263 NT-Pro-B Natriuret Pep 01/18/18 01/18/18 01/18/18 14:17 20:50 20:50 Creatine Kinase < 20 L CK-MB (CK-2) 1.43 1.20 Troponin I 0.227 0.187 NT-Pro-B Natriuret Pep 01/19/18 06:15 Creatine Kinase CK-MB (CK-2) Troponin I NT-Pro-B Natriuret Pep [id number] H Impressions: Chest X-Ray 01/17/18 15:36 IMPRESSION: Large retrocardiac hiatal hernia No acute infiltrates Assessment & Plan - Diagnosis (1) Kyphoscoliosis Is this a current diagnosis for this admission?: Yes Plan: The patient is wheelchair-bound because of severe kyphoscoliosis and prior history of compression fractures (2) Anemia Qualifiers: Anemia type: other cause Other causes of anemia: other cause, not classified Qualified Code(s): D64.89 - Other specified anemias Is this a current diagnosis for this admission?: Yes Plan: improved with blood (3) Acute on chronic diastolic (congestive) heart failure Is this a current diagnosis for this admission?: Yes Plan: The patient was third spacing because of the anemia and was transfused will have a higher volume which might help improve the anemia and heart failure (4) Atrial fibrillation Qualifiers: Atrial fibrillation type: paroxysmal Qualified Code(s): I48.0 - Paroxysmal atrial fibrillation Is this a current diagnosis for this admission?: Yes Plan: We will continue with current treatment and consult Dr. Cadena who is her communication arts lecturer (5) Hypothyroidism Qualifiers: Hypothyroidism type: acquired Qualified Code(s): E03.9 - Hypothyroidism, unspecified Is this a current diagnosis for this admission?: Yes Plan: Continue current treatment (6) GERD (gastroesophageal reflux disease) Is this a current diagnosis for this admission?: Yes Plan: Continue current treatment (7) DNR (do not resuscitate) Is this a current diagnosis for this admission?: Yes Plan: The patient does not want CPR or intubation or chest compressions she does not want any life support
[2018-01-21] MEDS: POTASSIUM CHLORIDE 10 MEQ TABLET.SA PO SCH (08:09)
[2018-01-21] MEDS: AMIODARONE HCL 200 MG TABLET PO SCH ×3 (08:10→18:19)
--- NOTE | 2018-01-21 08:36 | PDOC PROGRESS REPORT ---
Subjective Progress Note for:: 01/21/18 Subjective:: Reviewed iron studies, ferritin is 200, however studies were drawn after transfusion. Patient does have bouts of nausea from time to time. But has not noticed any black stool or distinct blood loss. Reason For Visit: HEART FAILURE Physical Exam Vital Signs: Temp Pulse Resp BP Pulse Ox 98.2 F 73 20 104/45 L 97 01/21/18 03:57 01/21/18 03:57 01/21/18 03:57 01/21/18 03:57 01/21/18 03:57 Intake & Output 01/20/18 01/21/18 01/22/18 06:59 06:59 06:59 Intake Total 1047 833 Output Total 1700 300 Balance -653 533 Weight 79.2 kg 82 kg General appearance: PRESENT: no acute distress, well-developed, well-nourished Head exam: PRESENT: atraumatic, normocephalic Eye exam: PRESENT: conjunctiva pink, EOMI, PERRLA. ABSENT: scleral icterus Ear exam: PRESENT: normal external ear exam Mouth exam: PRESENT: moist, tongue midline Neck exam: ABSENT: carotid bruit, JVD, lymphadenopathy, thyromegaly Respiratory exam: PRESENT: clear to auscultation rosana. ABSENT: rales, rhonchi, wheezes Cardiovascular exam: PRESENT: RRR. ABSENT: diastolic murmur, rubs, systolic murmur Pulses: PRESENT: normal dorsalis pedis pul Vascular exam: PRESENT: normal capillary refill GI/Abdominal exam: PRESENT: normal bowel sounds, soft. ABSENT: distended, guarding, mass, organolmegaly, rebound, tenderness Rectal exam: PRESENT: deferred Extremities exam: PRESENT: full ROM. ABSENT: calf tenderness, clubbing, pedal edema Neurological exam: PRESENT: alert, awake, oriented to person, oriented to place , oriented to time, oriented to situation, CN II-XII grossly intact. ABSENT: motor sensory deficit Psychiatric exam: PRESENT: appropriate affect, normal mood. ABSENT: homicidal ideation, suicidal ideation Skin exam: PRESENT: dry, intact, warm. ABSENT: cyanosis, rash Results Laboratory Results: 01/19/18 06:15 01/19/18 06:15 01/18/18 20:50 Transferrin 202 01/18/18 01/18/18 01/18/18 09:40 09:40 14:17 Creatine Kinase < 20 L 22 L CK-MB (CK-2) 1.55 Troponin I 0.263 NT-Pro-B Natriuret Pep 01/18/18 01/18/18 01/18/18 14:17 20:50 20:50 Creatine Kinase < 20 L CK-MB (CK-2) 1.43 1.20 Troponin I 0.227 0.187 NT-Pro-B Natriuret Pep 01/19/18 06:15 Creatine Kinase CK-MB (CK-2) Troponin I NT-Pro-B Natriuret Pep [id number] H Impressions: Chest X-Ray 01/17/18 15:36 IMPRESSION: Large retrocardiac hiatal hernia No acute infiltrates Assessment & Plan - Diagnosis (1) Anemia Qualifiers: Anemia type: other cause Other causes of anemia: nutritional, other Qualified Code(s): D53.8 - Other specified nutritional anemias Is this a current diagnosis for this admission?: Yes Plan: Most likely patient does have iron deficiency anemia, even though ferritin is normal it was drawn after blood was given, do not believe she has a primary bone marrow process, more likely related to slow blood loss. May be patient has something like AVMs, we will need to monitor closely as an outpatient, she did have a follow-up in our office but I do not believe she was able to keep that appointment. At this point will have to monitor closely upon discharge. Previously we decided against repeating scopes given her age and comorbidities. We may need to consider that if there is further drop in the future, and we could attribute that to iron deficiency. - Time Time Spent with patient: 35 or more minutes
[2018-01-21] MEDS: FUROSEMIDE 40 MG TABLET PO SCH (09:33)
[2018-01-21] MEDS: METOPROLOL TARTRATE 50 MG TABLET PO SCH ×2 (09:34→21:21)
[2018-01-21] MEDS: FENTANYL 25 MCG/HR PATCH.TD72 TOP SCH (09:34)
--- NOTE | 2018-01-21 19:31 | XCELERA REPORT ---
[address] [address] Transthoracic Echocardiogram Report Name: MIGUEL CHEATHAM Age: 87 yrs Gender: Female : 1930 Patient Status: Inpatient Patient Location: [address] [place] [address] Study Date: 01/21/2018 11:25 AM Height: 63 in Weight: 174 lb BSA: 1.8 m2 Procedure: A complete two-dimensional transthoracic echocardiogram was performed (2D, M-mode, spectral and color flow Doppler). The study was technically adequate with some images being suboptimal in quality. Reason For Study: CHF, non-STEMI, A. fib Ordering Physician: ERICA TORRES Performed By: Ravi Boogie Interpretation Summary The left ventricular ejection fraction is normal. There is mild concentric left ventricular hypertrophy. The left ventricle is grossly normal size. Doppler measurements suggest pseudonormalized left ventricular relaxation, which is associated with grade II/IV or mild to moderate diastolic dysfunction Wall motion cannot be accurately commented on, but no definite regional wall motion abnormalities noted. The right ventricle is moderately dilated. The right ventricular systolic function is mild to moderately reduced. The right ventricle appears to be hypertrophied Borderline left atrial enlargement. The right atrium is moderately dilated. There is a trace amount of mitral regurgitation There is no mitral valve stenosis. There is no aortic valve stenosis No aortic regurgitation is present. There is a mild to moderate amount of tricuspid regurgitation There is moderate pulmonary hypertension by echo Right ventricular systolic pressure is estimated to be elevated at 50- 60mmHg. The aortic root is not well visualized but is probably normal size. The inferior vena cava appeared normal and decreased > 50% with respiration (RAP 5-10 mmHg) There is no pericardial effusion. MMode/2D Measurements & Calculations RVDd: 3.8 cm LVIDd: 4.2 cm FS: 33.3 % Ao root diam: 3.3 cm IVSd: 1.1 cm LVIDs: 2.8 cm EDV(Teich): 79.1 ml LVPWd: 0.92 cm ESV(Teich): 29.8 ml Ao root area: 8.4 cm2 EF(Teich): 62.3 % Doppler Measurements & Calculations MV E max jack: MV dec slope: Ao V2 max: LV V1 max P.3 cm/sec 137.4 cm/sec 3.5 mmHg MV A max jack: 434.4 cm/sec2 Ao max PG: LV V1 max: 107.9 cm/sec MV dec time: 7.6 mmHg 93.3 cm/sec MV E/A: 1.1 0.27 sec PA V2 max: PI end-d jack: TR max jack: 65.1 cm/sec 87.8 cm/sec 359.2 cm/sec PA max P.7 mmHg TR max P.6 mmHg Left Ventricle The left ventricle is grossly normal size. There is mild concentric left ventricular hypertrophy. The left ventricular ejection fraction is normal. Doppler measurements suggest pseudonormalized left ventricular relaxation, which is associated with grade II/IV or mild to moderate diastolic dysfunction. Wall motion cannot be accurately commented on, but no definite regional wall motion abnormalities noted. Right Ventricle The right ventricle is moderately dilated. The right ventricle appears to be hypertrophied. The right ventricular systolic function is mild to moderately reduced. Atria The right atrium is moderately dilated. Borderline left atrial enlargement. Interarterial septum not well visualized and not well dopplered. Cannot comment on ASD/PFO presence. Mitral Valve The mitral valve is grossly normal. There is no mitral valve stenosis. There is a trace amount of mitral regurgitation. Aortic Valve The aortic valve is grossly normal. There is no aortic valve stenosis. No aortic regurgitation is present. Tricuspid Valve The tricuspid valve is not well visualized, but is grossly normal. There is no tricuspid stenosis. There is a mild to moderate amount of tricuspid regurgitation. There is moderate pulmonary hypertension by echo. Right ventricular systolic pressure is estimated to be elevated at 50-60mmHg. Pulmonic Valve The pulmonic valve is not well visualized. Great Vessels The aortic root is not well visualized but is probably normal size. The inferior vena cava appeared normal and decreased > 50% with respiration (RAP 5-10 mmHg). Effusions There is no pericardial effusion. : ERICA TORRES > Erica Torres
--- NOTE | 2018-01-21 20:14 | PDOC PROGRESS REPORT ---
Subjective Progress Note for:: 01/21/18 Subjective:: Patient seems to be doing better with gradual improvement. Pt is denying any chest arm or neck discomfort. Patient denying any PND, orthopnea. Patient denied any sustained palpitations, dizziness, syncope, near syncope. Patient denying any fever chills. Patient denying any other significant discomfort. Patient is maintaining sinus rhythm. Review of systems: Rest review of systems negative. Medications: Medications have been reviewed. Reason For Visit: HEART FAILURE Physical Exam Vital Signs: Temp Pulse Resp BP Pulse Ox 98.2 F 74 20 99/43 L 97 01/21/18 15:41 01/21/18 18:53 01/21/18 15:41 01/21/18 15:41 01/21/18 15:41 Intake & Output 01/20/18 01/21/18 01/22/18 06:59 06:59 06:59 Intake Total 1047 833 237 Output Total 1700 300 490 Balance -653 533 -253 Weight 79.2 kg 82 kg Exam: GENERAL: well-nourished and in no acute distress. Alert and oriented x2 HEAD: Atraumatic, normocephalic. EYES: Pupils equal round and reactive to light, extraocular movements intact, sclera anicteric, conjunctiva are normal. ENT: TMs normal, nares patent, oropharynx clear without exudates. Moist mucous membranes. No oral ulcerations or bleeding gums noted NECK: supple without lymphadenopathy. Trachea is central. No cervical or axillary lymphadenopathy noted. Carotids are 2+, JVD WNL LUNGS: Respiration seems nonlabored, no significant accessory muscle action noted. Few bibasilar crackles noted. No wheezes rales or rhonchi noted. No significant dullness noted on percussion. CHEST: Palpation of the chest wall shows no significant chest wall tenderness. 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 ABDOMEN: Soft, no significant tenderness appreciated, normoactive bowel sounds. No guarding, no rebound. No rigidity noted . No masses appreciated. EXTREMITIES: Pedal pulses are 1-2+, no calf tenderness noted. No clubbing or cyanosis. Trace to 1+ pedal edema noted NEUROLOGICAL: Focused neurological exam showed no significant neurologic deficit. Normal speech, no focal weakness appreciated. PSYCH: Normal mood, normal affect. Judgment and insight not checked SKIN: No significant ecchymosis, skin is noted to be warm. MUSCULOSKELETAL EXAM: No significant acute joint swelling noted. Results Laboratory Results: 01/19/18 06:15 01/19/18 06:15 01/18/18 20:50 Transferrin 202 01/18/18 01/18/18 01/18/18 09:40 09:40 14:17 Creatine Kinase < 20 L 22 L CK-MB (CK-2) 1.55 Troponin I 0.263 NT-Pro-B Natriuret Pep 01/18/18 01/18/18 01/18/18 14:17 20:50 20:50 Creatine Kinase < 20 L CK-MB (CK-2) 1.43 1.20 Troponin I 0.227 0.187 NT-Pro-B Natriuret Pep 01/19/18 06:15 Creatine Kinase CK-MB (CK-2) Troponin I NT-Pro-B Natriuret Pep [id number] H EKG Comments: Patient maintaining sinus rhythm. Impressions: Chest X-Ray 01/17/18 15:36 IMPRESSION: Large retrocardiac hiatal hernia No acute infiltrates Assessment & Plan - Diagnosis (1) Non-STEMI (non-ST elevated myocardial infarction) Is this a current diagnosis for this admission?: Yes (2) Severe anemia Is this a current diagnosis for this admission?: Yes (3) CHF (congestive heart failure) Qualifiers: Heart failure type: unspecified Is this a current diagnosis for this admission?: Yes (4) Atrial fibrillation Qualifiers: Atrial fibrillation type: paroxysmal Qualified Code(s): I48.0 - Paroxysmal atrial fibrillation Is this a current diagnosis for this admission?: Yes (5) Hyperlipidemia Qualifiers: Hyperlipidemia type: unspecified Qualified Code(s): E78.5 - Hyperlipidemia , unspecified Is this a current diagnosis for this admission?: Yes - Notes Notes: Patient has made slow gradual improvement. She has received up to 3 units of blood transfusion. Exact etiology of the anemia not clear. This is being worked up by information security risk analyst. Patient's daughter does not want patient to be on chronic anticoagulation. Patient 2D echo does show moderate pulmonary hypertension and enlargement of the RV. Amiodarone therapy does have relative contraindication but patient seems to be not tolerating A. fib when she goes into A. fib. Given patient's advanced age, limited life expectancy, low-dose amiodarone should be adequate. However will discuss this again with patient's family member. In the meantime will review patient's previous records. Patient to report any further problems. Will continue to follow with her third attendings. - Time Time with patient: Greater than 35 minutes - CODE STATUS : was discussed, patient remains DO NOT RESUSCITATE. Surrogate decision-maker unchanged. Multiple medical problems were addressed. More than 50% of the time spent coordinating care, discussing management plans with involved caregivers. Management plans discussed with involved personnels. Medical decision making was of moderate to high complexity, patient's has multiple comorbidities. Medications reviewed and adjusted accordingly: Yes
[2018-01-22] MEDS: LANSOPRAZOLE 30 MG TAB.RAP.DR PO SCH (05:37)
[2018-01-22] MEDS: HYDROMORPHONE HCL 2 MG TABLET PO SCH ×4 (05:37→23:43)
[2018-01-22] MEDS: PROMETHAZINE HCL 25 MG TABLET PO SCH ×5 (05:38→23:43)
[2018-01-22] MEDS: LEVOTHYROXINE SODIUM 0.05 MG TABLET PO SCH (05:38)
[2018-01-22 05:57] LABS: ABSOLUTE BASOPHILS # (AUTO) 0.1 10^3/uL (0.0-0.2); ABSOLUTE EOSINOPHILS # (AUTO) 0.2 10^3/uL (0.0-0.6); ABSOLUTE LYMPHOCYTES (AUTO) 0.9 10^3/uL (0.5-4.7); ABSOLUTE MONOCYTES (AUTO) 0.4 10^3/uL (0.1-1.4); ABSOLUTE NEUT (AUTO) 2.3 10^3/uL (1.7-8.2); BASOPHILS % (AUTO) 1.4 % (0-2); EOSINOPHILS % (AUTO) 5.7 % (0-6); HEMATOCRIT 26.4 % (36.0-47.0); HEMOGLOBIN 8.9 g/dL (12.0-15.5); LYMPHOCYTES % (AUTO) 24.1 % (13-45); MEAN CORPUSCULAR HEMOGLOBIN 27.2 pg (27.0-33.4); MEAN CORPUSCULAR HGB CONC 33.6 g/dL (32.0-36.0); MEAN CORPUSCULAR VOLUME 81 fl (80-97); MONOCYTES % (AUTO) 10.7 % (3-13); PLATELET COUNT 174 10^3/uL (150-450); RED BLOOD COUNT 3.25 10^6/uL (3.72-5.28); RED CELL DISTRIBUTION WIDTH 32.6 % (11.5-14.0); SEGMENTED NEUTROPHILS % (AUTO) 58.1 % (42-78); TOTAL CELLS COUNTED % (AUTO) 100 %; WHITE BLOOD COUNT 3.9 10^3/uL (4.0-10.5)
[2018-01-22 06:07] LABS: ANION GAP 5 (5-19); BLOOD UREA NITROGEN 33 mg/dL (7-20); CALCIUM 8.6 mg/dL (8.4-10.2); CARBON DIOXIDE 37 mmol/L (22-30); CHLORIDE 94 mmol/L (98-107); GLUCOSE 88 mg/dL (75-110); POTASSIUM 4.8 mmol/L (3.6-5.0); SODIUM 136.1 mmol/L (137-145)
[2018-01-22 06:37] LABS: ACANTHOCYTES SLIGHT; ANISOCYTOSIS 4+; HELMET CELLS 1+; OVALOCYTES SLIGHT; POIKILOCYTOSIS 2+; SCHISTOCYTES SLIGHT
[2018-01-22 06:38] LABS: PLATELET COMMENT ADEQUATE; PLATELET LARGE PRESENT
[2018-01-22] MEDS: POTASSIUM CHLORIDE 10 MEQ TABLET.SA PO SCH (08:04)
[2018-01-22] MEDS: AMIODARONE HCL 200 MG TABLET PO SCH (08:04)
--- NOTE | 2018-01-22 08:46 | PDOC PROGRESS REPORT ---
Subjective Progress Note for:: 01/22/18 Subjective:: No acute events overnight, patient still feels very weak Reason For Visit: HEART FAILURE Physical Exam Vital Signs: Temp Pulse Resp BP Pulse Ox 98.3 F 69 20 94/40 L 95 01/22/18 07:52 01/22/18 07:52 01/22/18 07:52 01/22/18 07:52 01/22/18 07:52 Intake & Output 01/21/18 01/22/18 01/23/18 06:59 06:59 06:59 Intake Total 833 479 Output Total 300 490 Balance 533 -11 Weight 82 kg 82.3 kg General appearance: PRESENT: no acute distress, well-developed, well-nourished Head exam: PRESENT: atraumatic, normocephalic Eye exam: PRESENT: conjunctiva pink, EOMI, PERRLA. ABSENT: scleral icterus Ear exam: PRESENT: normal external ear exam Mouth exam: PRESENT: moist, tongue midline Neck exam: ABSENT: carotid bruit, JVD, lymphadenopathy, thyromegaly Respiratory exam: PRESENT: clear to auscultation rosana. ABSENT: rales, rhonchi, wheezes Cardiovascular exam: PRESENT: RRR. ABSENT: diastolic murmur, rubs, systolic murmur Pulses: PRESENT: normal dorsalis pedis pul Vascular exam: PRESENT: normal capillary refill GI/Abdominal exam: PRESENT: normal bowel sounds, soft. ABSENT: distended, guarding, mass, organolmegaly, rebound, tenderness Rectal exam: PRESENT: deferred Extremities exam: PRESENT: full ROM. ABSENT: calf tenderness, clubbing, pedal edema Neurological exam: PRESENT: alert, awake, oriented to person, oriented to place , oriented to time, oriented to situation, CN II-XII grossly intact. ABSENT: motor sensory deficit Psychiatric exam: PRESENT: appropriate affect, normal mood. ABSENT: homicidal ideation, suicidal ideation Skin exam: PRESENT: dry, intact, warm. ABSENT: cyanosis, rash Results Laboratory Results: 01/22/18 05:07 01/22/18 05:07 01/22/18 01/22/18 05:07 05:07 WBC 3.9 L RBC 3.25 L Hgb 8.9 L Hct 26.4 L MCV 81 MCH 27.2 MCHC 33.6 RDW 32.6 H Plt Count 174 Seg Neutrophils % 58.1 Lymphocytes % 24.1 Monocytes % 10.7 Eosinophils % 5.7 Basophils % 1.4 Absolute Neutrophils 2.3 Absolute Lymphocytes 0.9 Absolute Monocytes 0.4 Absolute Eosinophils 0.2 Absolute Basophils 0.1 Sodium 136.1 L Potassium 4.8 Chloride 94 L Carbon Dioxide 37 H Anion Gap 5 BUN 33 H Creatinine 0.84 Est GFR ( Amer) > 60 Est GFR (Non-Af Amer) > 60 Glucose 88 Calcium 8.6 01/18/18 01/18/18 01/18/18 09:40 09:40 14:17 Creatine Kinase < 20 L 22 L CK-MB (CK-2) 1.55 Troponin I 0.263 NT-Pro-B Natriuret Pep 01/18/18 01/18/18 01/18/18 14:17 20:50 20:50 Creatine Kinase < 20 L CK-MB (CK-2) 1.43 1.20 Troponin I 0.227 0.187 NT-Pro-B Natriuret Pep 01/19/18 06:15 Creatine Kinase CK-MB (CK-2) Troponin I NT-Pro-B Natriuret Pep [id number] H Impressions: Chest X-Ray 01/17/18 15:36 IMPRESSION: Large retrocardiac hiatal hernia No acute infiltrates Assessment & Plan - Diagnosis (1) Anemia Qualifiers: Anemia type: other cause Other causes of anemia: nutritional, other Qualified Code(s): 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 Upon discharge I like to see her within 1 week, and do weekly CBCs and retest iron studies within 3-4 weeks. I believe she will need close monitoring. For her brother, there is concern of whether she would be too weak to go home, they were thinking about an assisted living situation, they will discuss this further with Dr. Mustafa. - Time Time Spent with patient: 35 or more minutes Disposition: Today had a long discussion with brother as well as daughter who are at bedside. Spent greater than 40 minutes in discussion - Inpatient Certification Based on my medical assessment, after consideration of the patient's comorbidities, presenting symptoms, or acuity I expect that the services needed warrant INPATIENT care.: Yes I certify that my determination is in accordance with my understanding of Medicare's requirements for reasonable and necessary INPATIENT services [42 CFR 412.3e].: Yes Medical Necessity: Risk of Complication if Not Cared For in Hospital
[2018-01-22] MEDS: FUROSEMIDE 40 MG TABLET PO SCH (10:32)
[2018-01-22] MEDS: METOPROLOL TARTRATE 50 MG TABLET PO SCH ×2 (10:32→21:46)
--- NOTE | 2018-01-22 11:29 | PDOC PROGRESS REPORT ---
Subjective Progress Note for:: 01/22/18 Subjective:: The patient states to feel slightly better. She is still complaining of being very weak. Both her daughter and her brother are present. Long discussion about further treatments. The patient does not really want to have anymore colonoscopies. Discussed the rehab because of weakness. They would rather stay in town. Advised the patient and her family that I will contact the discharge plan and will start making arrangements. Reason For Visit: HEART FAILURE Physical Exam Vital Signs: Temp Pulse Resp BP Pulse Ox 98.3 F 69 20 94/40 L 95 01/22/18 07:52 01/22/18 07:52 01/22/18 07:52 01/22/18 07:52 01/22/18 07:52 Intake & Output 01/21/18 01/22/18 01/23/18 06:59 06:59 06:59 Intake Total 833 479 Output Total 300 490 Balance 533 -11 Weight 82 kg 82.3 kg General appearance: PRESENT: no acute distress Head exam: PRESENT: atraumatic Eye exam: PRESENT: conjunctiva pink Neck exam: ABSENT: JVD Respiratory exam: PRESENT: crackles Cardiovascular exam: PRESENT: irregular rhythm, +S1, +S2 GI/Abdominal exam: PRESENT: normal bowel sounds, soft Extremities exam: PRESENT: tenderness Musculoskeletal exam: PRESENT: tenderness Psychiatric exam: PRESENT: flat affect Results Laboratory Results: 01/22/18 05:07 01/22/18 05:07 01/22/18 01/22/18 05:07 05:07 WBC 3.9 L RBC 3.25 L Hgb 8.9 L Hct 26.4 L MCV 81 MCH 27.2 MCHC 33.6 RDW 32.6 H Plt Count 174 Seg Neutrophils % 58.1 Lymphocytes % 24.1 Monocytes % 10.7 Eosinophils % 5.7 Basophils % 1.4 Absolute Neutrophils 2.3 Absolute Lymphocytes 0.9 Absolute Monocytes 0.4 Absolute Eosinophils 0.2 Absolute Basophils 0.1 Sodium 136.1 L Potassium 4.8 Chloride 94 L Carbon Dioxide 37 H Anion Gap 5 BUN 33 H Creatinine 0.84 Est GFR ( Amer) > 60 Est GFR (Non-Af Amer) > 60 Glucose 88 Calcium 8.6 01/18/18 01/18/18 01/18/18 09:40 09:40 14:17 Creatine Kinase < 20 L 22 L CK-MB (CK-2) 1.55 Troponin I 0.263 NT-Pro-B Natriuret Pep 01/18/18 01/18/18 01/18/18 14:17 20:50 20:50 Creatine Kinase < 20 L CK-MB (CK-2) 1.43 1.20 Troponin I 0.227 0.187 NT-Pro-B Natriuret Pep 01/19/18 06:15 Creatine Kinase CK-MB (CK-2) Troponin I NT-Pro-B Natriuret Pep [id number] H Impressions: Chest X-Ray 01/17/18 15:36 IMPRESSION: Large retrocardiac hiatal hernia No acute infiltrates Assessment & Plan - Diagnosis (1) Kyphoscoliosis Is this a current diagnosis for this admission?: Yes Plan: Stable we will continue with current treatment. 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 Is this a current diagnosis for this admission?: Yes Plan: H&H is stable. No further transfusions are needed. Discussed with hematology. (3) Acute on chronic diastolic (congestive) heart failure Is this a current diagnosis for this admission?: Yes Plan: Improved with blood transfusions and diuretics. Echocardiogram showed a normal left ventricular ejection fraction with just concentric hypertrophy most probably consistent with grade 2 diastolic dysfunction (4) Atrial fibrillation Qualifiers: Atrial fibrillation type: paroxysmal Qualified Code(s): I48.0 - Paroxysmal atrial fibrillation Is this a current diagnosis for this admission?: Yes Plan: Presently rate controlled and on amiodarone started by cardiology (5) Hypothyroidism Qualifiers: Hypothyroidism type: acquired Qualified Code(s): E03.9 - Hypothyroidism, unspecified Is this a current diagnosis for this admission?: Yes Plan: Stable continue current medications. (6) GERD (gastroesophageal reflux disease) Is this a current diagnosis for this admission?: Yes Plan: Stable continue current treatment (7) DNR (do not resuscitate) Is this a current diagnosis for this admission?: Yes Plan: The patient does not want CPR or intubation or chest compressions she does not want any life support
--- NOTE | 2018-01-22 11:56 | PDOC PROGRESS REPORT ---
Subjective Progress Note for:: 01/22/18 Subjective:: Stop amiodarone, continue beta-antonia, added digoxin. Patient seems to be doing better with gradual improvement. Pt is denying any chest arm or neck discomfort. Patient denying any PND, orthopnea. Patient denied any sustained palpitations, dizziness, syncope, near syncope. Patient denying any fever chills. Patient denying any other significant discomfort. Patient is maintaining sinus rhythm. Review of systems: Rest review of systems negative. Medications: Medications have been reviewed. Reason For Visit: HEART FAILURE Physical Exam Vital Signs: Temp Pulse Resp BP Pulse Ox 98.3 F 69 20 94/40 L 95 01/22/18 07:52 01/22/18 07:52 01/22/18 07:52 01/22/18 07:52 01/22/18 07:52 Intake & Output 01/21/18 01/22/18 01/23/18 06:59 06:59 06:59 Intake Total 833 479 Output Total 300 490 Balance 533 -11 Weight 82 kg 82.3 kg Exam: GENERAL: well-nourished and in no acute distress. Alert and oriented x3 HEAD: Atraumatic, normocephalic. EYES: Pupils equal round and reactive to light, extraocular movements intact, sclera anicteric, conjunctiva are normal. ENT: TMs normal, nares patent, oropharynx clear without exudates. Moist mucous membranes. No oral ulcerations or bleeding gums noted NECK: supple without lymphadenopathy. Trachea is central. No cervical or axillary lymphadenopathy noted. Carotids are 2+, JVD WNL LUNGS: Respiration seems nonlabored, no significant accessory muscle action noted. Bibasilar fine crackles are noted. No wheezes rales or rhonchi noted. No significant dullness noted on percussion. CHEST: Palpation of the chest wall shows no significant chest wall tenderness. HEART: [place] BEHAVIOR ANALYST, No PSH, 1/6 JAC[place]TO aortic area, 1/6 aguirre systolic murmur mitral area, no rubs, no gallops. ABDOMEN: Soft, no significant tenderness appreciated, normoactive bowel sounds. No guarding, no rebound. No rigidity noted . No masses appreciated. EXTREMITIES: Pedal pulses are 1-2+, no calf tenderness noted. No clubbing or cyanosis. Trace to 1+ pedal edema noted NEUROLOGICAL: Focused neurological exam showed no significant neurologic deficit. Normal speech, no focal weakness appreciated. PSYCH: Normal mood, normal affect. Judgment and insight within normal limits. SKIN: No significant ecchymosis, skin is noted to be warm. MUSCULOSKELETAL EXAM: No significant acute joint swelling noted. Results Laboratory Results: 01/22/18 05:07 01/22/18 05:07 01/22/18 01/22/18 05:07 05:07 WBC 3.9 L RBC 3.25 L Hgb 8.9 L Hct 26.4 L MCV 81 MCH 27.2 MCHC 33.6 RDW 32.6 H Plt Count 174 Seg Neutrophils % 58.1 Lymphocytes % 24.1 Monocytes % 10.7 Eosinophils % 5.7 Basophils % 1.4 Absolute Neutrophils 2.3 Absolute Lymphocytes 0.9 Absolute Monocytes 0.4 Absolute Eosinophils 0.2 Absolute Basophils 0.1 Sodium 136.1 L Potassium 4.8 Chloride 94 L Carbon Dioxide 37 H Anion Gap 5 BUN 33 H Creatinine 0.84 Est GFR ( Amer) > 60 Est GFR (Non-Af Amer) > 60 Glucose 88 Calcium 8.6 01/18/18 01/18/18 01/18/18 09:40 09:40 14:17 Creatine Kinase < 20 L 22 L CK-MB (CK-2) 1.55 Troponin I 0.263 NT-Pro-B Natriuret Pep 01/18/18 01/18/18 01/18/18 14:17 20:50 20:50 Creatine Kinase < 20 L CK-MB (CK-2) 1.43 1.20 Troponin I 0.227 0.187 NT-Pro-B Natriuret Pep 01/19/18 06:15 Creatine Kinase CK-MB (CK-2) Troponin I NT-Pro-B Natriuret Pep [id number] H Impressions: Chest X-Ray 01/17/18 15:36 IMPRESSION: Large retrocardiac hiatal hernia No acute infiltrates Assessment & Plan - Diagnosis (1) Non-STEMI (non-ST elevated myocardial infarction) Is this a current diagnosis for this admission?: Yes (2) Severe anemia Is this a current diagnosis for this admission?: Yes (3) CHF (congestive heart failure) Qualifiers: Heart failure type: unspecified Is this a current diagnosis for this admission?: Yes (4) Atrial fibrillation Qualifiers: Atrial fibrillation type: paroxysmal Qualified Code(s): I48.0 - Paroxysmal atrial fibrillation Is this a current diagnosis for this admission?: Yes (5) Hyperlipidemia Qualifiers: Hyperlipidemia type: unspecified Qualified Code(s): E78.5 - Hyperlipidemia , unspecified Is this a current diagnosis for this admission?: Yes - Notes Notes: Non-STEMI: Most likely precipitated by severe anemia and supply demand mismatch rather than acute coronary syndrome. At this point recommend good control of heart rate, correction of anemia. Patient currently on beta-antonia therapy. Have added digoxin. Patient has been maintaining sinus rhythm for the last 24- 48 hours. Severe anemia: Patient patient received 3 units of blood transfusion. Recommend maintaining hemoglobin above 8 g percent if feasible. CHF: Recommend diuretic therapy. Have added digoxin. CHF seems related to RV systolic dysfunction and from LV diastolic dysfunction. LVEF seems relatively well-preserved. Right atrium and right ventricle are noted to be dilated. Hypoxemia: Patient needing high flow oxygen to maintain O2 sat. Exact etiology is not clear. Cannot rule out right to left shunting. Cannot rule out primary lung disease. At this point, it may be helpful to have pulmonary involved to rule out any intrinsic pulmonary disease. Atrial fibrillation: Currently chronic anticoagulation on hold because of anemia. But will leave decision to design/animation instructor and oncology electrical service technician. Patient does have elevated has bled score. At this time patient daughter is not inclined for patient to be on chronic anticoagulation. Have stopped amiodarone in view of patient having significant hypoxemia. After discussion with patient's daughter and patient's brother, I have added digoxin and continue metoprolol therapy and opted for only rate controlled. Continue oxygen therapy. Hyperlipidemia: Continue with statin therapy. - Time Time with patient: Greater than 35 minutes - CODE STATUS : was discussed, patient remains DO NOT RESUSCITATE. Surrogate decision-maker unchanged. Multiple medical problems were addressed. More than 50% of the time spent coordinating care, discussing management plans with involved caregivers. Management plans discussed with involved personnels. Medical decision making was of moderate to high complexity, patient's has multiple comorbidities. Medications reviewed and adjusted accordingly: Yes
[2018-01-23] MEDS: LEVOTHYROXINE SODIUM 0.05 MG TABLET PO SCH (06:36)
[2018-01-23] MEDS: PROMETHAZINE HCL 25 MG TABLET PO SCH ×5 (06:36→23:08)
[2018-01-23] MEDS: LANSOPRAZOLE 30 MG TAB.RAP.DR PO SCH (06:36)
[2018-01-23] MEDS: HYDROMORPHONE HCL 2 MG TABLET PO SCH ×4 (06:36→23:07)
--- NOTE | 2018-01-23 08:46 | PDOC PROGRESS REPORT ---
Subjective Progress Note for:: 01/23/18 Subjective:: Pt apparently waiting on transfer [facility] to [facility]. Hb was stable last few days Reason For Visit: HEART FAILURE Physical Exam Vital Signs: Temp Pulse Resp BP Pulse Ox 98.1 F 71 14 103/50 L 96 01/23/18 07:24 01/23/18 07:24 01/23/18 07:24 01/23/18 07:24 01/23/18 07:24 Intake & Output 01/22/18 01/23/18 01/24/18 06:59 06:59 06:59 Intake Total 479 1003 Output Total 490 400 Balance -11 603 Weight 82.3 kg 81.4 kg General appearance: PRESENT: no acute distress, well-developed, well-nourished Head exam: PRESENT: atraumatic, normocephalic Eye exam: PRESENT: conjunctiva pink, EOMI, PERRLA. ABSENT: scleral icterus Ear exam: PRESENT: normal external ear exam Mouth exam: PRESENT: moist, tongue midline Neck exam: ABSENT: carotid bruit, JVD, lymphadenopathy, thyromegaly Respiratory exam: PRESENT: clear to auscultation rosana. ABSENT: rales, rhonchi, wheezes Cardiovascular exam: PRESENT: RRR. ABSENT: diastolic murmur, rubs, systolic murmur Pulses: PRESENT: normal dorsalis pedis pul Vascular exam: PRESENT: normal capillary refill GI/Abdominal exam: PRESENT: normal bowel sounds, soft. ABSENT: distended, guarding, mass, organolmegaly, rebound, tenderness Rectal exam: PRESENT: deferred Extremities exam: PRESENT: full ROM. ABSENT: calf tenderness, clubbing, pedal edema Neurological exam: PRESENT: alert, awake, oriented to person, oriented to place , oriented to time, oriented to situation, CN II-XII grossly intact. ABSENT: motor sensory deficit Psychiatric exam: PRESENT: appropriate affect, normal mood. ABSENT: homicidal ideation, suicidal ideation Skin exam: PRESENT: dry, intact, warm. ABSENT: cyanosis, rash Results Laboratory Results: 01/22/18 05:07 01/22/18 05:07 01/18/18 01/18/18 01/18/18 09:40 09:40 14:17 Creatine Kinase < 20 L 22 L CK-MB (CK-2) 1.55 Troponin I 0.263 NT-Pro-B Natriuret Pep 01/18/18 01/18/18 01/18/18 14:17 20:50 20:50 Creatine Kinase < 20 L CK-MB (CK-2) 1.43 1.20 Troponin I 0.227 0.187 NT-Pro-B Natriuret Pep 01/19/18 06:15 Creatine Kinase CK-MB (CK-2) Troponin I NT-Pro-B Natriuret Pep [id number] H Impressions: Chest X-Ray 01/17/18 15:36 IMPRESSION: Large retrocardiac hiatal hernia No acute infiltrates Assessment & Plan - Diagnosis (1) Anemia Qualifiers: Anemia type: other cause Other causes of anemia: nutritional, other Qualified Code(s): 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
[2018-01-23] MEDS: DIGOXIN 0.125 MG TABLET PO SCH (09:24)
[2018-01-23] MEDS: METOPROLOL TARTRATE 50 MG TABLET PO SCH ×2 (09:24→21:37)
[2018-01-23] MEDS: POTASSIUM CHLORIDE 10 MEQ TABLET.SA PO SCH (09:24)
[2018-01-23] MEDS: FUROSEMIDE 40 MG TABLET PO SCH (09:25)
--- NOTE | 2018-01-23 09:46 | PDOC PROGRESS REPORT ---
Subjective Progress Note for:: 01/23/18 Subjective:: The patient states to feel the same. She is still feeling very tired. She has not been out of bed. Again discussed the need for the rehab. We will contact patient's daughter who is the decision maker and recommend that the patient go to a [place] instead of assisted living Reason For Visit: HEART FAILURE Physical Exam Vital Signs: Temp Pulse Resp BP Pulse Ox 98.1 F 71 14 103/50 L 96 01/23/18 07:24 01/23/18 07:24 01/23/18 07:24 01/23/18 07:24 01/23/18 07:24 Intake & Output 01/22/18 01/23/18 01/24/18 06:59 06:59 06:59 Intake Total 479 1003 Output Total 490 400 Balance -11 603 Weight 82.3 kg 81.4 kg General appearance: PRESENT: mild distress Head exam: PRESENT: atraumatic Eye exam: PRESENT: conjunctiva pink Neck exam: ABSENT: carotid bruit, JVD Respiratory exam: PRESENT: crackles Cardiovascular exam: PRESENT: irregular rhythm, +S2 GI/Abdominal exam: PRESENT: normal bowel sounds, soft Extremities exam: PRESENT: tenderness Musculoskeletal exam: PRESENT: tenderness. ABSENT: ambulatory Neurological exam: PRESENT: awake Results Laboratory Results: 01/22/18 05:07 01/22/18 05:07 01/18/18 01/18/18 01/18/18 09:40 09:40 14:17 Creatine Kinase < 20 L 22 L CK-MB (CK-2) 1.55 Troponin I 0.263 NT-Pro-B Natriuret Pep 01/18/18 01/18/18 01/18/18 14:17 20:50 20:50 Creatine Kinase < 20 L CK-MB (CK-2) 1.43 1.20 Troponin I 0.227 0.187 NT-Pro-B Natriuret Pep 01/19/18 06:15 Creatine Kinase CK-MB (CK-2) Troponin I NT-Pro-B Natriuret Pep [id number] H Impressions: Chest X-Ray 01/17/18 15:36 IMPRESSION: Large retrocardiac hiatal hernia No acute infiltrates Assessment & Plan - Diagnosis (1) Kyphoscoliosis Is this a current diagnosis for this admission?: Yes Plan: Stable we will continue with current treatment. 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 Is this a current diagnosis for this admission?: Yes Plan: Stable and improved with transfusion no further sources of bleeding The patient does not want any GI workup (3) Acute on chronic diastolic (congestive) heart failure Is this a current diagnosis for this admission?: Yes Plan: Improved we will continue current treatment (4) Atrial fibrillation Qualifiers: Atrial fibrillation type: paroxysmal Qualified Code(s): I48.0 - Paroxysmal atrial fibrillation Is this a current diagnosis for this admission?: Yes Plan: Presently rate controlled and on amiodarone started by cardiology (5) Hypothyroidism Qualifiers: Hypothyroidism type: acquired Qualified Code(s): E03.9 - Hypothyroidism, unspecified Is this a current diagnosis for this admission?: Yes Plan: Stable continue current medications. (6) GERD (gastroesophageal reflux disease) Is this a current diagnosis for this admission?: Yes Plan: Stable continue current treatment (7) DNR (do not resuscitate) Is this a current diagnosis for this admission?: Yes Plan: The patient does not want CPR or intubation or chest compressions she does not want any life support (8) Acute on chronic respiratory failure with hypoxemia Is this a current diagnosis for this admission?: Yes Plan: We will continue oxygen therapy
[2018-01-23 15:39] LABS: A/G RATIO. 1.8 (0.7-1.7); ALBUMIN 3 3.4 g/dL (2.9-4.4); ALPHA-1-GLOBULIN 0.3 g/dL (0.0-0.4); BETA GLOBULIN 0.7 g/dL (0.7-1.3); GAMMA GLOBULINS 0.6 g/dL (0.4-1.8); IMMUNOGLOBULIN A 132 mg/dL (64-422); IMMUNOGLOBULIN G 548 mg/dL (700-1600); IMMUNOGLOBULIN M 133 mg/dL (26-217); MONOCLONAL-SPIKE 0.2 g/dL (Not Observed); PROTEIN TOTAL SERUM 5.4 g/dL (6.0-8.5)
[2018-01-24] MEDS: LEVOTHYROXINE SODIUM 0.05 MG TABLET PO SCH (05:55)
[2018-01-24] MEDS: PROMETHAZINE HCL 25 MG TABLET PO SCH ×2 (05:56→12:03)
[2018-01-24] MEDS: HYDROMORPHONE HCL 2 MG TABLET PO SCH ×2 (05:56→12:03)
[2018-01-24] MEDS: LANSOPRAZOLE 30 MG TAB.RAP.DR PO SCH (05:56)
--- NOTE | 2018-01-24 07:52 | PDOC PROGRESS REPORT ---
Subjective Progress Note for:: 01/24/18 Subjective:: No acute events overnight, planned to go to [facility] today Reason For Visit: HEART FAILURE Physical Exam Vital Signs: Temp Pulse Resp BP Pulse Ox 98.7 F 76 20 104/42 L 94 01/24/18 03:08 01/24/18 07:00 01/24/18 03:08 01/24/18 03:08 01/24/18 03:08 Intake & Output 01/23/18 01/24/18 01/25/18 06:59 06:59 06:59 Intake Total 1003 633 Output Total 400 2125 Balance 603 -1492 Weight 81.4 kg 82.3 kg General appearance: PRESENT: no acute distress, well-developed, well-nourished Head exam: PRESENT: atraumatic, normocephalic Eye exam: PRESENT: conjunctiva pink, EOMI, PERRLA. ABSENT: scleral icterus Ear exam: PRESENT: normal external ear exam Mouth exam: PRESENT: moist, tongue midline Neck exam: ABSENT: carotid bruit, JVD, lymphadenopathy, thyromegaly Respiratory exam: PRESENT: clear to auscultation rosana. ABSENT: rales, rhonchi, wheezes Cardiovascular exam: PRESENT: RRR. ABSENT: diastolic murmur, rubs, systolic murmur Pulses: PRESENT: normal dorsalis pedis pul Vascular exam: PRESENT: normal capillary refill GI/Abdominal exam: PRESENT: normal bowel sounds, soft. ABSENT: distended, guarding, mass, organolmegaly, rebound, tenderness Rectal exam: PRESENT: deferred Extremities exam: PRESENT: full ROM. ABSENT: calf tenderness, clubbing, pedal edema Neurological exam: PRESENT: alert, awake, oriented to person, oriented to place , oriented to time, oriented to situation, CN II-XII grossly intact. ABSENT: motor sensory deficit Psychiatric exam: PRESENT: appropriate affect, normal mood. ABSENT: homicidal ideation, suicidal ideation Skin exam: PRESENT: dry, intact, warm. ABSENT: cyanosis, rash Results Laboratory Results: 01/22/18 05:07 01/22/18 05:07 01/18/18 20:50 Total Protein 5.4 L Albumin 3.4 01/18/18 01/18/18 01/18/18 09:40 09:40 14:17 Creatine Kinase < 20 L 22 L CK-MB (CK-2) 1.55 Troponin I 0.263 NT-Pro-B Natriuret Pep 01/18/18 01/18/18 01/18/18 14:17 20:50 20:50 Creatine Kinase < 20 L CK-MB (CK-2) 1.43 1.20 Troponin I 0.227 0.187 NT-Pro-B Natriuret Pep 01/19/18 06:15 Creatine Kinase CK-MB (CK-2) Troponin I NT-Pro-B Natriuret Pep [id number] H Impressions: Chest X-Ray 01/17/18 15:36 IMPRESSION: Large retrocardiac hiatal hernia No acute infiltrates Assessment & Plan - Diagnosis (1) Anemia Qualifiers: Anemia type: other cause Other causes of anemia: nutritional, other Qualified Code(s): 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 Unlikely that this is either an IgM myeloma or Waldentrom's Macroglobulinemia. Will monitor this also as outpt.
[2018-01-24] MEDS: FUROSEMIDE 40 MG TABLET PO SCH (09:19)
[2018-01-24] MEDS: POTASSIUM CHLORIDE 10 MEQ TABLET.SA PO SCH (09:19)
[2018-01-24] MEDS: METOPROLOL TARTRATE 50 MG TABLET PO SCH (09:20)
[2018-01-24] MEDS: DIGOXIN 0.125 MG TABLET PO SCH (09:20)
[2018-01-24] MEDS: FENTANYL 25 MCG/HR PATCH.TD72 TOP SCH (09:20)
--- NOTE | 2018-01-24 09:52 | PDOC TRANSFER SUMMARY ---
General - Admit/Disc Date/PCP Admission Date/Primary Care Provider: 01/17/18 22:24 NORRIS NEAL, Discharge Date: 01/24/18 - Discharge Diagnosis (1) Kyphoscoliosis Is this a current diagnosis for this admission?: Yes Summary: Continue current medications and the use of motorized wheelchair (2) Anemia Is this a current diagnosis for this admission?: Yes Summary: Follow-up with hematology oncology and have a CBC done on the weekly basis (3) Acute on chronic diastolic (congestive) heart failure Is this a current diagnosis for this admission?: Yes Summary: Continue DASH diet and diuretics. (4) Atrial fibrillation Is this a current diagnosis for this admission?: Yes Summary: Continue current recommendations by turf keeper including metoprolol and digoxin (5) Hypothyroidism Is this a current diagnosis for this admission?: Yes Summary: Continue current dose of levothyroxine (6) GERD (gastroesophageal reflux disease) Is this a current diagnosis for this admission?: Yes Summary: Continue current medications (7) DNR (do not resuscitate) Is this a current diagnosis for this admission?: Yes Summary: Continue the DNR status (8) Acute on chronic respiratory failure with hypoxemia Is this a current diagnosis for this admission?: Yes Summary: Continue O2 by nasal cannula to keep O2 saturation above 90% - Additional Information Resuscitation Status: Do Not Resuscitate Discharge Diet: Regular Discharge Activity: Activity As Tolerated, Balance Activity w/Rest, Weigh Daily Prescriptions: Digoxin [Lanoxin 0.125 mg Tablet] 0.125 mg PO DAILY #30 tablet Home Medications: Fentanyl [Duragesic 25 mcg/hr Transdermal Patch] 1 patch TOP Q3D 10/24/17 Furosemide [Lasix 40 mg Tablet] 40 mg PO DAILY 10/24/17 Metoprolol Tartrate [Lopressor 50 mg Tablet] 50 mg PO DAILY 10/24/17 Potassium Chloride [Klor-Con Sprinkle] 10 meq PO [id number] 10/24/17 Promethazine HCl [Phenergan 25 mg Tablet] 12.5 mg PO Q6 MDD TAKE WITH DILAUDID 10/24/17 Dexlansoprazole [Dexilant 60 mg Capsule] 60 mg PO DAILY 01/17/18 Hydromorphone HCl [Dilaudid 2 mg Tablet] 2 mg PO Q6 MDD TAKE WITH PHENERGAN 12/02 Guaifenesin [Mucinex] 600 mg PO DAILY 01/18/18 Levothyroxine Sodium [Synthroid 0.05 mg Tablet] 50 mcg PO DAILY 01/18/18 Promethazine HCl [Phenergan 25 mg Tablet] 25 mg PO QHS 01/18/18 Ropinirole HCl [Requip] 1 mg PO DAILY 01/18/18 Simvastatin 20 mg PO DAILY 01/18/18 Digoxin [Lanoxin 0.125 mg Tablet] 0.125 mg PO DAILY #30 tablet 01/24/18 History of Present Illness Admission Date/PCP: 01/17/18 22:24 NORRIS NEAL, History of Present Illness: MIGUEL CHEATHAM is a 87 year old female Hospital Course Hospital Course: The patient was admitted with severe symptomatic anemia. She has received 3 units of packed red blood cells. Her fluid status has reequilibrated and her heart failure has improved with diuretics and blood transfusions. She was seen by cardiology and digoxin has been added to her regimen. Her echocardiogram was essentially unchanged. She did quite well over the next several days but because of need for the rehab after being hospitalized case was discussed with the family and in agreement has been made for patient to be in a facility. Physical Exam Vital Signs: Temp Pulse Resp BP Pulse Ox 98.7 F 78 20 111/46 L 95 01/24/18 07:37 01/24/18 07:37 01/24/18 07:37 01/24/18 07:37 01/24/18 07:37 Intake & Output 01/23/18 01/24/18 01/25/18 06:59 06:59 06:59 Intake Total 1003 633 Output Total 400 2125 Balance 603 -1492 Weight 81.4 kg 82.3 kg General appearance: PRESENT: no acute distress Head exam: PRESENT: atraumatic Eye exam: PRESENT: conjunctiva pink Neck exam: ABSENT: JVD Respiratory exam: PRESENT: crackles Cardiovascular exam: PRESENT: irregular rhythm, +S1, +S2 GI/Abdominal exam: PRESENT: normal bowel sounds, soft Extremities exam: PRESENT: tenderness Musculoskeletal exam: PRESENT: tenderness Neurological exam: PRESENT: alert, awake, oriented to person, oriented to place , oriented to time Results Laboratory Results: 01/22/18 05:07 01/22/18 05:07 01/18/18 20:50 Total Protein 5.4 L Albumin 3.4 01/18/18 01/18/18 01/18/18 09:40 09:40 14:17 Creatine Kinase < 20 L 22 L CK-MB (CK-2) 1.55 Troponin I 0.263 NT-Pro-B Natriuret Pep 01/18/18 01/18/18 01/18/18 14:17 20:50 20:50 Creatine Kinase < 20 L CK-MB (CK-2) 1.43 1.20 Troponin I 0.227 0.187 NT-Pro-B Natriuret Pep 01/19/18 06:15 Creatine Kinase CK-MB (CK-2) Troponin I NT-Pro-B Natriuret Pep 14792 H Impressions: Chest X-Ray 01/17/18 15:36 IMPRESSION: Large retrocardiac hiatal hernia No acute infiltrates Transfer Plan - Disposition Transfer Plan: Transfer to [facility] living. Continue home health. Continue O2 by nasal cannula to keep the O2 saturation above 90%. Continue diuretics and current medication regimen. Follow-up with hematology oncology to recheck the blood counts on the weekly basis. - Time Spent with Patient Time spent with patient: Greater than 30 Minutes Qualifiers - * PATIENT BEING DISCHARGED WITH ANY OF THE FOLLOWING DIAGNOSIS: No, Heart Failure HF Pt being discharged on ACEI for LVEF less than 40%?: No Reason(s) for not prescribing ACEI:: Tx not tolerated HF Pt being discharged on ARBS for LVEF less than 40%?: No Reason(s) for not prescribing ARBS:: Tx not tolerated HF Pt with Afib discharged with Warfarin?: No Reason(s) for not prescribing Warfarin:: Medical Contraindication HF Pt discharged on evidence-based Beta Matthew:: Yes
[2018-01-24 12:12] VITALS: BP 105/44
--- NOTE | 2018-01-24 12:57 | PDOC PROGRESS REPORT ---
Subjective Progress Note for:: 01/23/18 Subjective:: Stop amiodarone, continue beta-antonia, added digoxin. Patient has no new complaint except being somewhat weak. Hemoglobin is noted to be stable. Patient seems to be doing better with gradual improvement. Pt is denying any chest arm or neck discomfort. Patient denying any PND, orthopnea. Patient denied any sustained palpitations, dizziness, syncope, near syncope. Patient denying any fever chills. Patient denying any other significant discomfort. Patient is maintaining sinus rhythm. Review of systems: Rest review of systems negative. Medications: Medications have been reviewed. Reason For Visit: HEART FAILURE Physical Exam Vital Signs: Temp Pulse Resp BP Pulse Ox 98.0 F 76 16 94/40 L 97 01/23/18 15:47 01/23/18 15:47 01/23/18 15:47 01/23/18 15:47 01/23/18 15:47 Intake & Output 01/22/18 01/23/18 01/24/18 06:59 06:59 06:59 Intake Total 479 1003 406 Output Total 308 882 6981 Balance -11 603 -1494 Weight 82.3 kg 81.4 kg Exam: GENERAL: well-nourished and in no acute distress. Alert and oriented x3 HEAD: Atraumatic, normocephalic. EYES: Pupils equal round and reactive to light, extraocular movements intact, sclera anicteric, conjunctiva are normal. ENT: TMs normal, nares patent, oropharynx clear without exudates. Moist mucous membranes. No oral ulcerations or bleeding gums noted NECK: supple without lymphadenopathy. Trachea is central. No cervical or axillary lymphadenopathy noted. Carotids are 2+, JVD WNL LUNGS: Respiration seems nonlabored, no significant accessory muscle action noted. Few bibasilar coarse crackles are noted.. No wheezes rales or rhonchi noted. No significant dullness noted on percussion. CHEST: Palpation of the chest wall shows no significant chest wall tenderness. 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 ABDOMEN: Soft, no significant tenderness appreciated, normoactive bowel sounds. No guarding, no rebound. No rigidity noted . No masses appreciated. EXTREMITIES: Pedal pulses are 1-2+, no calf tenderness noted. No clubbing or cyanosis. Trace to 1+ pedal edema noted NEUROLOGICAL: Focused neurological exam showed no significant neurologic deficit. Normal speech, no focal weakness appreciated. PSYCH: Normal mood, normal affect. Judgment and insight within normal limits. SKIN: No significant ecchymosis, skin is noted to be warm. MUSCULOSKELETAL EXAM: No significant acute joint swelling noted. Results Laboratory Results: 01/22/18 05:07 01/22/18 05:07 01/18/18 01/18/18 01/18/18 09:40 09:40 14:17 Creatine Kinase < 20 L 22 L CK-MB (CK-2) 1.55 Troponin I 0.263 NT-Pro-B Natriuret Pep 01/18/18 01/18/18 01/18/18 14:17 20:50 20:50 Creatine Kinase < 20 L CK-MB (CK-2) 1.43 1.20 Troponin I 0.227 0.187 NT-Pro-B Natriuret Pep 01/19/18 06:15 Creatine Kinase CK-MB (CK-2) Troponin I NT-Pro-B Natriuret Pep 32337 H EKG Comments: Telemetry strips reviewed showed sinus rhythm. No sustained tachycardia or bradycardia noted. Impressions: Chest X-Ray 01/17/18 15:36 IMPRESSION: Large retrocardiac hiatal hernia No acute infiltrates Assessment & Plan - Diagnosis (1) Non-STEMI (non-ST elevated myocardial infarction) Is this a current diagnosis for this admission?: Yes (2) Severe anemia Is this a current diagnosis for this admission?: Yes (3) CHF (congestive heart failure) Qualifiers: Heart failure type: unspecified Is this a current diagnosis for this admission?: Yes (4) Atrial fibrillation Qualifiers: Atrial fibrillation type: paroxysmal Qualified Code(s): I48.0 - Paroxysmal atrial fibrillation Is this a current diagnosis for this admission?: Yes (5) Hyperlipidemia Qualifiers: Hyperlipidemia type: unspecified Qualified Code(s): E78.5 - Hyperlipidemia , unspecified Is this a current diagnosis for this admission?: Yes - Notes Notes: Non-STEMI: Most likely precipitated by severe anemia and supply demand mismatch rather than acute coronary syndrome. At this point recommend good control of heart rate, correction of anemia. Patient currently on beta-antonia therapy. Have added digoxin. Patient has been maintaining sinus rhythm. Currently is stable. No interventions are planned. Severe anemia: Patient had received 3 units of blood transfusion. Recommend maintaining hemoglobin above 8 g percent if feasible. Last hemoglobin checked was higher than 8 g percent. CHF: Recommend diuretic therapy. Continue digoxin for RV systolic dysfunction. CHF seems related to RV systolic dysfunction and from LV diastolic dysfunction. LVEF seems relatively well-preserved. Right atrium and right ventricle are noted to be dilated. When compared to previous echocardiogram, the findings are relatively unchanged. Hypoxemia: Patient needing high flow oxygen to maintain O2 sat. Exact etiology is not clear. Cannot rule out right to left shunting. Cannot rule out primary lung disease. At this point, it may be helpful to have pulmonary involved to rule out any intrinsic pulmonary disease. Also for this reason amiodarone was discontinued. Atrial fibrillation: Currently chronic anticoagulation on hold because of anemia. But will leave decision to dental specialist and oncology instructor correspondence school. Patient does have elevated has bled score. At this time patient daughter is not inclined for patient to be on chronic anticoagulation. Have stopped amiodarone in view of patient having significant hypoxemia. Continue oxygen therapy. Hyperlipidemia: Continue with statin therapy. - Time Time with patient: 15-25 minutes - CODE STATUS : was discussed, patient remains DO NOT RESUSCITATE. Surrogate decision-maker unchanged. Multiple medical problems were addressed. More than 50% of the time spent coordinating care, discussing management plans with involved caregivers. Management plans discussed with involved personnels. Medical decision making was of moderate to high complexity, patient's has multiple comorbidities. Medications reviewed and adjusted accordingly: Yes
== END 2018-01-24 12:07 | disposition home health service (06) | DRG 811 ==
LOC: ER 15:25 → EH 22:24 → 3S 01-18 02:43
PROVIDERS: ADMIT Internal Medicine; ATTEND Internal Medicine
PROC: 30233N1 Transfusion of Nonautologous Red Blood Cells into Peripheral Vein, Percutaneous Approach (ICD-10-PCS; principal; 2018-01-17)
PROC: 30233N1 Transfusion of Nonautologous Red Blood Cells into Peripheral Vein, Percutaneous Approach (ICD-10-PCS; 2018-01-18)
DX: D53.8 Other specified nutritional anemias (principal); I50.33 Acute on chronic diastolic (congestive) heart failure; I21.4 Non-ST elevation (NSTEMI) myocardial infarction; J96.01 Acute respiratory failure with hypoxia; M80.08XA Age-related osteoporosis with current pathological fracture, vertebra(e), initial encounter for fracture; Z66 Do not resuscitate; I48.0 Paroxysmal atrial fibrillation; K21.9 Gastro-esophageal reflux disease without esophagitis; J44.9 Chronic obstructive pulmonary disease, unspecified; E78.5 Hyperlipidemia, unspecified; I95.9 Hypotension, unspecified; E03.9 Hypothyroidism, unspecified; M41.9 Scoliosis, unspecified; Z99.81 Dependence on supplemental oxygen
CPT/HCPCS: 36415; 36430; 51701; 71045; 80048; 80053; 81001; 82550; 82553; 82570; 82607; 82728; 82746; 82803; 83540; 83550; 83605; 83615; 83690; 83735; 83880; 84443; 84466; 84484; 85025; 85045; 85610; 85652; 85730; 86320; 86850; 86900; 86901; 86920; 87040; 87086; 93005; 93010; 93306; 96361; 96374; 99285; J0696; J1644; J1940; J3490; J7030; P9016